=== PATIENT | female | born 1930 | race Caucasian/White ===

== ENCOUNTER 2016-07-14 05:51 | Inpatient (IN) | payer MEDICARE, MEDICAID ==
[2016-07-14 05:51] VITALS: BMI 30.9
--- NOTE | 2016-07-14 06:17 | ED PDOC ---
HPI: Trauma/Fall - HPI Time Seen by Provider: 07/14/16 05:57 Chief Complaint (Nursing): Trauma Chief Complaint (Provider): trauma Additional Complaint(s): pt sent from [place] after being foiund on floor after falling out of bed and apparently hitting her head according to patient. pt also state she is cold hence she is shivering. denies any other pain. no fever/vomiting. pt history limited as has history of dementia Past Medical History Reviewed: Historical Data, Nursing Documentation, Vital Signs Vital Signs: Last Vital Signs Temp 98.2 F 07/14/16 05:58 Pulse 73 07/14/16 05:58 Resp 17 07/14/16 05:58 BP 113/65 07/14/16 05:58 Pulse Ox 92 L 07/14/16 05:58 - Medical History PMH: Arthritis, CVA, Dementia, Depression, Fractures (right femur fx with surgery), HTN, Malignancy, Osteoporosis, Pneumonia, Rheumatoid Arthritis Denies: HIV, Chronic Kidney Disease - Surgical History Surgical History: Appendectomy - Family History Family History: States: Unknown Family Hx - Social History Current smoker - smoking cessation education provided: No Alcohol: None Drugs: Denies - Immunization History Hx Tetanus Toxoid Vaccination: No Hx Influenza Vaccination: Yes Hx Pneumococcal Vaccination: Yes - Home Medications Home Medications: Ambulatory Orders Medication Instructions Recorded Atorvastatin [Lipitor] 10 mg PO HS #0 tab 09/12/14 Famotidine [Pepcid] 20 mg PO BID #0 tab 09/12/14 Lisinopril [Zestril] 20 mg PO DAILY #0 tab 09/12/14 Magnesium Hydroxide [Milk Of 30 ml PO HS PRN #0 udc 09/12/14 Magnesia] amLODIPine [Norvasc] 10 mg PO DAILY #0 tab 09/12/14 Acetaminophen [Tylenol 325mg tab] 650 mg PO Q4H PRN 01/22/16 Albuterol/Ipratropium [Duoneb 3 3 ml IH Q8H PRN 01/22/16 mg/0.5 mg (3 ml) UD] Aspirin [Aspirin Chewable] 81 mg PO DAILY 01/22/16 Bisacodyl [Dulcolax] 10 mg [place] DAILY PRN 01/22/16 Calcium Carbonate/Vitamin D3 1 tab PO DAILY 01/22/16 [Os-Mahesh 500-Vit D3 200 Caplet] Docusate [Colace] 100 mg PO BID 01/22/16 Ferrous Sulfate [Feosol] 325 mg PO BID 01/22/16 Multivitamin [Multi-Vitamin Daily] 1 tab PO DAILY 01/22/16 Simethicone [Mylicon Liq] 2.4 ml PO BID PRN 01/22/16 hydroCHLOROthiazide [Hydrodiuril] 25 mg PO DAILY 01/22/16 Acetaminophen [Tylenol 325mg tab] 650 mg PO Q4H PRN 07/14/16 Difluprednate [Durezol] 1 drop LEFTEYE BID 07/14/16 - Allergies Allergies/Adverse Reactions: Allergies Allergy/AdvReac Type Severity Reaction Status Date / Time No Known Allergies Allergy Verified 07/14/16 05:57 Review of Systems ROS Statement: Except As Marked, All Systems Reviewed And Found Negative Constitutional: Negative for: Fever, Chills Cardiovascular: Negative for: Chest Pain Neurological: Positive for: Headache (head pain since falling) Physical Exam - Reviewed Nursing Documentation Reviewed: Yes Vital Signs Reviewed: Yes - Physical Exam Appears: Positive for: Well, Non-toxic (shaking from being cold but temp normal) , No Acute Distress Head Exam: Positive for: ATRAUMATIC, NORMAL INSPECTION, NORMOCEPHALIC Skin: Positive for: Normal Color, Warm, DRY Eye Exam: Positive for: EOMI, Normal appearance, PERRL Neck: Positive for: Normal, Painless ROM Cardiovascular/Chest: Positive for: Regular Rate, Rhythm Respiratory: Positive for: CNT, Normal Breath Sounds Gastrointestinal/Abdominal: Positive for: Bowel Sounds, Soft Extremity: Positive for: Other (r lower leg slightly rotated, neurovascular intact. normal pulses and color of skin) Neurologic/Psych: Positive for: Alert. Negative for: Oriented, Facial Droop - Laboratory Results Result Diagrams: 07/14/16 07:24 07/14/16 07:24 - ECG O2 Sat by Pulse Oximetry: 92 Medical Decision Making Medical Decision Making: pt status post fall -CT head -CT hip and pelvis -labs [address] Stanton pending complete workup and dispo pt noted to be vomitting in ER, ordered zofran Disposition - Clinical Impression Clinical Impression: Syncope, Acute cholecystitis - Patient ED Disposition Is Patient to be Admitted: Transfer of Care - Disposition Disposition: Transfer of Care Disposition Time: 07:00 Condition: STABLE Patient Signed Over To: Cornelio Stanton Handoff Comments: full workup and dispo
[2016-07-14 07:29] LABS: BASO % 0.4 % (0.0-2.0); HEMATOCRIT 34.5 % (34.0-47.0); LYMPH # 0.5 K/uL (1.0-4.3); LYMPH % 4.4 % (20.0-40.0); MEAN CELL VOLUME 89.6 fl (81.0-99.0); MEAN CORPUSCULAR HEMOGLOBIN 29.6 pg (27.0-31.0); MEAN CORPUSCULAR HGB CONC 33.1 g/dL (33.0-37.0); MEAN PLATELET VOLUME 10.1 fl (7.2-11.7); MONO # 0.3 K/uL (0.0-0.8); MONO % 2.6 % (0.0-10.0); NEUT # 10.8 K/uL (1.8-7.0); NEUT % 92.6 % (50.0-75.0); PLATELET COUNT 144 K/uL (130-400); RED CELL DISTRIBUTION WIDTH 13.9 % (11.5-14.5); WHITE BLOOD COUNT 11.6 K/uL (4.8-10.8)
[2016-07-14 07:48] LABS: ALB/GLOB RATIO 1.3 (1.0-2.1); ALKALINE PHOSPHATASE 140 U/L (38-126); ALT/SGPT 131 U/L (9-52); AST/SGOT 340 U/L (14-36); BILIRUBIN,TOTAL 0.9 mg/dl (0.2-1.3); BLOOD UREA NITROGEN 24 mg/dl (7-17); CARBON DIOXIDE 22 mmol/L (22-30); CHLORIDE 101 mmol/L (98-107); GFR AFRICAN-AMERICAN 51; GLUCOSE,RANDOM 175 mg/dL (65-105); POTASSIUM 4.3 MMOL/L (3.6-5.0); SODIUM 137 mmol/l (132-148); TOTAL PROTEIN 7.6 G/DL (6.3-8.2)
[2016-07-14 07:59] LABS: RBC URINE 5 /hpf (0-3); URINE BACTERIA OCC (<OCC); URINE BILIRUBIN NEGATIVE (NEGATIVE); URINE BLOOD NEGATIVE (NEGATIVE); URINE COLOR YELLOW (YELLOW); URINE GLUCOSE (UA) NEG (Normal); URINE KETONE NEGATIVE (NEGATIVE); URINE LEUKOCYTE ESTERASE SMALL Leu/uL (Negative); URINE PROTEIN 30 mg/dL (NEGATIVE); URINE UROBILINOGEN 0.2-1.0 mg/dL (0.2-1.0); WBC URINE 26 /hpf (0-5)
--- NOTE | 2016-07-14 08:26 | CT ---
PROCEDURE: CT HEAD WITHOUT CONTRAST. HISTORY: headache COMPARISON: Comparison is made to the previous study dated 01/21/2026 TECHNIQUE: Axial computed tomography images were obtained through the head/brain without intravenous contrast. Radiation dose: Total exam DLP = 1004.5 mGy-cm. FINDINGS: HEMORRHAGE: No intracranial hemorrhage. BRAIN: Small foci of encephalomalacia in the basal ganglia and marino radiata are again seen suggestive of old lacunar infarct. Mild atrophy and moderate chronic microvascular white matter ischemic disease are again seen. VENTRICLES: Unremarkable. No hydrocephalus. CALVARIUM: Unremarkable. PARANASAL SINUSES: Unremarkable as visualized. No significant inflammatory changes. MASTOID AIR CELLS: Unremarkable as visualized. No inflammatory changes. OTHER FINDINGS: None. IMPRESSION: No evidence of acute intracranial hemorrhage intracranial collection mass effect or midline shift. No significant interval change compared to the previous study noted. Atrophy and chronic microvascular white matter ischemic disease. Chronic lacunar infarcts again noted in the left basal ganglia and right marino radiata.
--- NOTE | 2016-07-14 08:36 | CT ---
PROCEDURE: CT Pelvis without contrast HISTORY: fall COMPARISON: No prior similar exam available for comparison. TECHNIQUE: Contiguous axial images of the pelvis . No intravenous or oral contrast given. Coronal and sagittal reformats generated. Radiation dose: Total exam DLP = 651.0 cell mGy-cm. FINDINGS: BLADDER: Unremarkable. No mass. REPRODUCTIVE ORGANS: Unremarkable. VISUALIZED BOWEL: Unremarkable. PERITONEUM: Unremarkable, as visualized. No free fluid. No free air. LYMPH NODES: Unremarkable. No enlarged lymph nodes. BONES: No fracture or focal lesion. Partially imaged intramedullary shon at the right femoral shaft VASCULATURE: Unremarkable. OTHER FINDINGS: There is midline ventral hernia seen just inferior to the umbilicus contains stranding fat. IMPRESSION: No CT evidence of acute fracture in the pelvis . Midline infraumbilical ventral hernia contains stranding fat. Mild constipation.
--- NOTE | 2016-07-14 08:50 | ED PDOC ---
- Laboratory Results Result Diagrams: 07/14/16 07:24 07/14/16 07:24 - ECG O2 Sat by Pulse Oximetry: 98 (RA) Pulse Ox Interpretation: Normal Medical Decision Making Medical Decision Makin signed over to me by Justin Dahl MD pending reassessment. 0816: Labs reviewed, elevated LFTs noted. On reassessment, voluntary guarding noted on palpation of RUQ. Will obtain CT abd/pel w/. 1040 CT abd/pel impression: Thickene gallbaldder wall with multiple dependent gallstones. Findings are of some concern for cholecystitis. Evaluation with ultrasound is suggested. No evidence of biliary obstructions. Exophytic mid riht renal cortical cysts stable since 12/30/2014. 1129 Case discussed with resident Dr. Walsh in the ED who accepts patient. Disposition - Clinical Impression Clinical Impression: Syncope, Acute cholecystitis - POA Present On Arrival: None - Disposition Disposition: Admitted as In-Patient Disposition Time: 11:30 Condition: STABLE Progress Note - Review of Symptoms Events since last encounter: 12PM: Pt. has lactate of 3.3 likely 2/2 to dehdyration. Normal VS, not concerned for sepsis at this time. U/S is equivocal for cholecystitits. Will continue to hydrate patient. ED OBSERVATION Date of observation admission: 07/14/16 Time of observation admission: 07:30 Additional Comments - Additional Comments Additional Comments: Scribe Attestation: Documented by Casimiro Iqbal acting as a scribe for Braden Stanton MD. Provider Scribe Attestation: All medical record entries made by the Scribe were at my direction and personally dictated by me. I have reviewed the chart and agree that the record accurately reflects my personal performance of the history, physical exam, medical decision making, and the department course for this patient. I have also personally directed, reviewed, and agree with the discharge instructions and disposition.
--- NOTE | 2016-07-14 10:35 | CT ---
PROCEDURE: CT Abdomen and Pelvis without intravenous contrast HISTORY: elevated LFTs COMPARISON: CT abdomen/ pelvis 07/30/2014 TECHNIQUE: Without contrast.. Contrast Dose: 0 Radiation dose: Total exam DLP = 533.45 mGy-cm. FINDINGS: LOWER THORAX: 8 mm pleural-based nodule in lingular segment left upper lobe none. No prior examination for comparison. Followup as per Fleischner society criteria includes noncontrast CT at 3-6 months and then at 18-24 months, for both low and high risk patients. Mild cardiomegaly with mitral annular calcification. LIVER: Unremarkable. No gross lesion or ductal dilatation. GALLBLADDER AND BILE DUCTS: Gallbladder contains dependent calculi. The gallbladder wall is thickened. No pericholecystic fluid. Findings are some concern for cholecystitis and further evaluation with ultrasound examination is suggested. Common bile duct measures 6 mm in diameter, within normal limits. PANCREAS: Unremarkable. No gross lesion or ductal dilatation. SPLEEN: Unremarkable. ADRENALS: Unremarkable. No mass. KIDNEYS AND URETERS: 1.7 cm exophytic mid right renal cortical mass. This measures 16 Hounsfield units. Consistent with stable cortical cyst. VASCULATURE: Unremarkable. No aortic aneurysm. BOWEL: Unremarkable. No obstruction. No gross mural thickening. APPENDIX: Not included PERITONEUM: Unremarkable. No free fluid. No free air. LYMPH NODES: Unremarkable. No enlarged lymph nodes. BONES: Grade 1 anterolisthesis L3-4. No spondylolysis. Degenerative disc disease L3-4 and L4-5. OTHER FINDINGS: None. IMPRESSION: Thickened gallbladder wall with multiple dependent gallstones. Findings are of some concern for cholecystitis. Evaluation with ultrasound examination is suggested. No evidence of biliary obstruction. Exophytic mid right renal cortical cysts stable since 12/30/2014. Additional minor findings as above.
[2016-07-14] MEDS ORDERED: Piperacillin/Tazobact 3.375 GM in Sodium Chloride 0.9% 100 ML IVPB STA (10:42)
[2016-07-14] MEDS ORDERED: Piperacillin/Tazobact 3.375 gm Inj IVPB ONE (10:48)
--- NOTE | 2016-07-14 11:08 | RAD ---
HISTORY: fall COMPARISON: 09/06/2014 FINDINGS: LUNGS: No active pulmonary disease. PLEURA: No significant pleural effusion identified, no pneumothorax apparent. CARDIOVASCULAR: Normal. OSSEOUS STRUCTURES: No significant abnormalities. VISUALIZED UPPER ABDOMEN: Normal. OTHER FINDINGS: None. IMPRESSION: No active disease.
[2016-07-14] MEDS ORDERED: Sodium Chloride 0.9% 1,000 ML IV STA ×2 (11:32→12:08)
[2016-07-14 11:50] LABS: ABG ALLEN TEST YES; ARTERIAL BLOOD GAS HCO3 27.9 mmol/L (21-28); ARTERIAL BLOOD GAS MODE NC; ARTERIAL BLOOD GAS PH 7.47 (7.35-7.45); ARTERIAL BLOOD GAS PO2 86 mm/Hg (80-100)
[2016-07-14 11:59] LABS: NEUTROPHIL 88 % (42-75); TOTAL CELLS COUNTED 100
--- NOTE | 2016-07-14 12:02 | US ---
HISTORY: r/o cholecystitis COMPARISON: CT abdomen 07/14/[address] abdomen/pelvis 07/30/2014 TECHNIQUE: Sonographic evaluation of the right upper quadrant of the abdomen. FINDINGS: LIVER: Measures 14.4 cm in length. Normal echogenicity of the liver parenchyma. No mass. No intrahepatic bile duct dilatation. GALLBLADDER: Cholelithiasis demonstrated. Mild thickening of gallbladder wall to 4 mm common nonspecific. No pericholecystic fluid. Negative sonographic Leon's sign. The findings are equivocal for cholecystitis. COMMON BILE DUCT: Measures 4 mm. No stones. No dilatation. PANCREAS: Suboptimally visualized due to overlying bowel gas. Pancreatic tail obscured. No gross abnormality identified. RIGHT KIDNEY: Measures 9.1 cm in length. No calculus or hydronephrosis. Mid to lower right kidney, exophytic hypoechoic mass, 1.6 x 1.7 x 1.8 cm. This is not clearly demonstrated to represent a cyst. This is not appreciably changed since CT examination of 07/30/2014. This may represent a complex cyst with low-level internal echoes or a solid mass. Given the lack of appreciable interval change since 2014, followup is advised. No other renal mass identified. AORTA: No aneurysmal dilatation. IVC: Unremarkable. OTHER FINDINGS: None . IMPRESSION: Cholelithiasis with mild gallbladder wall thickening. No pericholecystic fluid and no sonographic Leon's sign. Equivocal findings for cholecystitis. Essentially stable hypoechoic exophytic mid to lower right renal cortical mass compared to examination of 07/30/2014. Possible complex cyst versus solid mass. Given the lack of interval change, follow-up is advised. No additional abnormality.
[2016-07-14 12:04] LABS: GIANT PLATELETS PRESENT; LARGE PLATELETS PRESENT
[2016-07-14] MEDS ORDERED: Simethicone 40 mg/0.6 ml Liquid (30 ml) PO PRN (12:18)
[2016-07-14] MEDS ORDERED: Magnesium Hydroxide Susp 30 ml UD PO PRN (12:18)
[2016-07-14] MEDS ORDERED: Albuterol-Ipratrop 3 mg / 0.5 (3 ml) UD IH PRN (12:18)
--- NOTE | 2016-07-14 12:25 | CP.PCM.HP ---
History of Present Illness - History of Present Illness History of Present Illness: CC: fall HPI: 86 year old female with last medical history of dementia (poor historian, history obtained through chart review) HTN, arthritis, respiratory failure, CVA , head injury, presented to the ER early this morning after a fall. Per records , patient reportedly hit her head, Head CT, CT Pelvis were negative. Upon evaluation patient was found to have elevated white count as well as elevated transaminases, lactate 3.3. Abd exam showed mild guarding. Subsequent imaging CT ABD, US ABD showed +gallstones as well as elevated lipase 10K, + pancreatitis. Pt received 2 boluses NS in ER, pt also made NPO. Surgery consult called in ER, Dr. Judge. Patient vitals are stable no acute distress. ROS: per HPI, all other systems reviewed and negative by sd PMD: Dr. Spain PMH:HTN, arthritis, respiratory failure, CVA, head injury, PSH:s/p ORIF R, FH: SH: Denies tobacco, ETOH, IVDU MEDS: as below and reviewed ALLERGIES: NKDA personal lines agent: Surrogate decision maker Chetna Meneses [phone] EXAM: Temp Pulse Resp BP Pulse Ox 98.3 F 88 20 135/63 98 07/14/16 14:12 07/14/16 13:00 07/14/16 13:00 07/14/16 13:00 07/14/16 14:13 Vitals stable and reviewed GEN: WDWN, alert HEENT: NCAT, PERRL, EOMI Neck: supple, no lymphadenopathy CARDIO: +S1S2, RRR, NO M/R/G LUNG: CTAB, NO W/R/R ABD: soft, mild RUQ tenderness, ND, no masses, no HSM EXT: no edema, pedal pulses Neuro: AAOx3, Strength equal, bilateral UE/LE Psych: +DEMENTIA LABS as below and reviewed 07/14/16 07:24 07/14/16 07:24 LIPASE 10k TROPONIN NEG AST / ALT 340 / 131 APT 140 TBILI 0.9 Medications Albuterol/Ipratropium [Duoneb 3 mg/0.5 mg (3 ml) UD] 3 ml IH Q8H PRN Bisacodyl [Dulcolax] 10 mg [place] DAILY PRN Magnesium Hydroxide [Milk Of Magnesia] 30 ml PO HS PRN 07/14/16 12:30 Aspirin [Aspirin Chewable] 81 mg PO DAILY amLODIPine [Norvasc] 10 mg PO DAILY hydroCHLOROthiazide [Hydrodiuril] 25 mg PO DAILY 07/14/16 12:31 Simethicone [Mylicon Chew Tab] 160 mg PO BID PRN 07/14/16 13:15 Sodium Chloride 0.9% 1,000 ml IV 250 mls/hr 07/14/16 17:00 Difluprednate [Durezol] 1 drop LEFTEYE BID Docusate [Colace] 100 mg PO BID Famotidine [Pepcid] 20 mg PO DAILY Ferrous Sulfate [Feosol] 325 mg PO BID 07/14/16 22:00 Atorvastatin [Lipitor] 10 mg PO HS 07/15/16 09:00 Calcium/Vitamin D [Oyster Shell Calcium/Vitamin D 500 mg-200 IU] 1 tab PO DAILY Enoxaparin [Lovenox] 30 mg SC DAILY Lisinopril [Zestril] 20 mg PO DAILY Multimineral/Multivitamin [Therapeutic-M Tab] 1 tab PO DAILY Imaging studies: Head CT atrophy and chronic microvascular white matter ischemic disease. Chronic lacunar infarcts again noted int he left basal ganglia and right marino radiata. Chest XR no active disease CT Pelvis No CT evidence of acute fracture in pelvis. Midline infraumbilical ventral hernia contains stranding fat. Mild constipation. CT Abdomen: thickened gallbladder wall with multiple dependent gallstones. Findings are of some concern for cholecystitis. Eval with US recommended. No biliary obstruction. Exophytic mild R renal cortical cysts stable since 2014. US Abdomen cholelithiasis with mild gallbladder wall thickening. No pericholecystic fluid and no sonographic murphys sign. Equivocal for cholecystitis. essentially stable hypoechoic exophytic mid to lower R renal cortical mass compared to examination of 07/30/14. Possible complex cyst versus solid mass. Given lack of interval change, follow up advised. ASSESSMENT AND PLAN: 86 year old female with last medical history of dementia (poor historian, history obtained through chart review) HTN, arthritis, respiratory failure, CVA , head injury, presented to the ER early this morning after a fall. Per records , patient reportedly hit her head, Head CT, CT Pelvis were negative. Upon evaluation patient was found to have elevated white count as well as elevated transaminases, lactate 3.3. Abd exam showed mild guarding. Subsequent imaging CT ABD, US ABD showed +gallstones as well as elevated lipase 10K, + pancreatitis. Pt received 2 boluses NS in ER, pt also made NPO. Surgery consult called in ER, Dr. Judge. Patient vitals are stable no acute distress. Gallstone Pancreatitis CT Abdomen: thickened gallbladder wall with multiple dependent gallstones. Findings are of some concern for cholecystitis. Eval with US recommended. No biliary obstruction. Exophytic mild R renal cortical cysts stable since 2014. US Abdomen cholelithiasis with mild gallbladder wall thickening. No pericholecystic fluid and no sonographic murphys sign. Equivocal for cholecystitis. essentially stable hypoechoic exophytic mid to lower R renal cortical mass compared to examination of 07/30/14. Possible complex cyst versus solid mass. Given lack of interval change, follow up advised. WBC 11.6 today Lipase 10K, elevated transaminases, TBili 0.9 NS @ 250 cc/hr 4 more bags, revaluate Old echo showed some diastolic dysfunction will monitor carefully, diffucult to assess pain at this time as patient nonverbal Lasix PRN Surgery consult Dr. Judge appreciated and followed Blood cultures pending patient received zosyn in ER Fall CT head and Pelvis both neg fall precautions Hx CVA Asa 81 mg po daily Atorvastatin 10 mg po HS HTN HCTZ 25 mg po daily Norvasc 10 mg po daily Lisinopril 20 mg po daily DVT ppx lovenox Present on Admission - Present on Admission Any Indicators Present on Admission: No Past Patient History - Infectious Disease Hx of Infectious Diseases: None - Tetanus Immunizations Tetanus Immunization: Unknown, Allergy to Tetanus Vaccine - Past Medical History & Family History Past Medical History?: Yes - Past Social History Alcohol: None Drugs: Denies - CARDIAC Hx Hypertension: Yes - PULMONARY Hx Pneumonia: Yes - NEUROLOGICAL Hx Dementia: Yes - HEENT Hx HEENT Problems: No - RENAL Hx Chronic Kidney Disease: No - ENDOCRINE/METABOLIC Hx Endocrine Disorders: No - HEMATOLOGICAL/ONCOLOGICAL Hx Human Immunodeficiency Virus (HIV): No - INTEGUMENTARY Hx Dermatological Problems: No - MUSCULOSKELETAL/RHEUMATOLOGICAL Hx Arthritis: Yes Hx Fractures: Yes (right femur fx with surgery) Hx Osteoporosis: Yes Hx Rheumatoid Arthritis: Yes - GASTROINTESTINAL Hx Gastrointestinal Disorders: Yes Hx Gastroesophageal Reflux: Yes - GENITOURINARY/GYNECOLOGICAL Hx Genitourinary Disorders: Yes Hx Urinary Tract Infection: Yes Other/Comment: recurrent UTI - PSYCHIATRIC Hx Depression: Yes - SURGICAL HISTORY Hx Appendectomy: Yes - ANESTHESIA Hx Anesthesia: Yes Hx Anesthesia Reactions: No Hx Malignant Hyperthermia: No Meds Allergies/Adverse Reactions: Allergies Allergy/AdvReac Type Severity Reaction Status Date / Time No Known Allergies Allergy Verified 07/14/16 05:57 Results - Vital Signs Recent Vital Signs: Last Vital Signs Temp 98.2 F 07/14/16 12:22 Pulse 90 07/14/16 12:22 Resp 24 07/14/16 12:22 BP 103/78 07/14/16 12:22 Pulse Ox 98 07/14/16 12:11 - Labs Result Diagrams: 07/14/16 07:24 07/14/16 07:24 Labs: Laboratory Results - last 24 hr 07/14/16 07/14/16 11:40 11:41 pCO2 38 pO2 86 HCO3 27.9 ABG pH 7.47 H ABG Total CO2 28.9 H ABG O2 Saturation 100.9 H ABG Base Excess 3.8 H Neno Test Yes ABG Potassium 3.9 A-a O2 Difference 66.0 Sodium 138.0 Chloride 107.0 Glucose 138 H Lactate 3.3 H Vent Mode Nc FiO2 28.0 Lipase 54952 H Arterial Blood Potassium 3.9
[2016-07-14] MEDS ORDERED: Simethicone 80 mg Chewtab PO PRN (12:31)
[2016-07-14] MEDS ORDERED: Sodium Chloride 0.9% 1,000 ML IV SCH (13:15)
[2016-07-14] MEDS: Sodium Chloride 0.9% 1,000 ML IV SCH ×4 (15:17→23:10)
[2016-07-14 15:21] LABS: ABG ALLEN TEST YES; ARTERIAL BLOOD GAS HCO3 27.8 mmol/L (21-28); ARTERIAL BLOOD GAS PH 7.43 (7.35-7.45); ARTERIAL BLOOD GAS PO2 88 mm/Hg (80-100)
--- NOTE | 2016-07-14 16:27 | CP.PCM.CON ---
<Alejandro Ervin - Last Filed: 07/14/16 16:16> History of Present Illness - History of Present Illness History of Present Illness: General Surgery Consult Re: Cholecystitis? HPI: 86F with Hx dementia/CVA. Pt is nonverbal, history obtained through EMR. Pt presented to the ER after a fall [place]. Trauma eval was negative. Further eval revealed elevated WBC as well as elevated transaminases, lactate, and lipase. Pt moans and grimaces during abdominal exam. PMH: HTN, arthritis, respiratory failure, CVA, head injury, CAD PSH: ORIF R femur SH: In past denied EtOH and tobacco use All: NKDA Meds: See MAR Review of Systems - Review of Systems Systems not reviewed;Unavailable: Dementia, Language Barrier Past Patient History - Infectious Disease Hx of Infectious Diseases: None - Tetanus Immunizations Tetanus Immunization: Unknown, Allergy to Tetanus Vaccine - Past Medical History & Family History Past Medical History?: Yes - Past Social History Alcohol: None Drugs: Denies - CARDIAC Hx Hypertension: Yes - PULMONARY Hx Pneumonia: Yes - NEUROLOGICAL Hx Dementia: Yes - HEENT Hx HEENT Problems: No - RENAL Hx Chronic Kidney Disease: No - ENDOCRINE/METABOLIC Hx Endocrine Disorders: No - HEMATOLOGICAL/ONCOLOGICAL Hx Human Immunodeficiency Virus (HIV): No - INTEGUMENTARY Hx Dermatological Problems: No - MUSCULOSKELETAL/RHEUMATOLOGICAL Hx Arthritis: Yes Hx Fractures: Yes (right femur fx with surgery) Hx Osteoporosis: Yes Hx Rheumatoid Arthritis: Yes - GASTROINTESTINAL Hx Gastrointestinal Disorders: Yes Hx Gastroesophageal Reflux: Yes - GENITOURINARY/GYNECOLOGICAL Hx Genitourinary Disorders: Yes Hx Urinary Tract Infection: Yes Other/Comment: recurrent UTI - PSYCHIATRIC Hx Depression: Yes - SURGICAL HISTORY Hx Appendectomy: Yes - ANESTHESIA Hx Anesthesia: Yes Hx Anesthesia Reactions: No Hx Malignant Hyperthermia: No Meds Allergies/Adverse Reactions: Allergies Allergy/AdvReac Type Severity Reaction Status Date / Time No Known Allergies Allergy Verified 07/14/16 05:57 - Medications Medications: Current Medications Albuterol/Ipratropium (Duoneb 3 Mg/0.5 Mg (3 Ml) Ud) 3 ml IH Q8H PRN PRN Reason: wheezing/shortness of breath Amlodipine Besylate (Norvasc) 10 mg PO DAILY [facility] Last Admin: 07/14/16 15:10 Dose: Not Given Aspirin (Aspirin Chewable) 81 mg PO DAILY [facility] Last Admin: 07/14/16 15:03 Dose: Not Given Atorvastatin Calcium (Lipitor) 10 mg PO HS [facility] Bisacodyl (Dulcolax) 10 mg [place] DAILY PRN PRN Reason: Constipation Calcium/Vitamin D (Oyster Shell Calcium/Vitamin D 500 Mg-200 Iu) 1 tab PO DAILY [facility] Docusate Sodium (Colace) 100 mg PO BID [facility] Enoxaparin Sodium (Lovenox) 30 mg SC DAILY [facility] PRN Reason: Protocol Famotidine (Pepcid) 20 mg PO DAILY [facility] Ferrous Sulfate (Feosol) 325 mg PO BID [facility] Home Med (Difluprednate [Durezol]) 1 drop LEFTEYE BID [facility] Hydrochlorothiazide (Hydrodiuril) 25 mg PO DAILY [facility] Last Admin: 07/14/16 15:03 Dose: Not Given Sodium Chloride (Sodium Chloride 0.9%) 1,000 mls @ 250 mls/hr IV .Q4H [facility] Stop: 07/15/16 05:14 Last Admin: 07/14/16 15:17 Dose: 250 mls/hr Lisinopril (Zestril) 20 mg PO DAILY [facility] Magnesium Hydroxide (Milk Of Magnesia) 30 ml PO HS PRN PRN Reason: Constipation Multivitamins/Minerals (Therapeutic-M Tab) 1 tab PO DAILY [facility] Simethicone (Mylicon Chew Tab) 160 mg PO BID PRN PRN Reason: gas Physical Exam - Constitutional Appears: Non-toxic, No Acute Distress - Head Exam Head Exam: ATRAUMATIC, NORMOCEPHALIC - Eye Exam Eye Exam: PERRL. absent: Scleral icterus - ENT Exam ENT Exam: Mucous Membranes Moist Additional comments: trachea midline - Respiratory Exam Respiratory Exam: NORMAL BREATHING PATTERN. absent: Respiratory Distress - Cardiovascular Exam Cardiovascular Exam: RRR. absent: JVD - GI/Abdominal Exam GI & Abdominal Exam: Soft, Tenderness (especially in RUQ and epigastric area). absent: Distended, Firm, Guarding, Rebound, Rigid - Extremities Exam Extremities exam: Negative for: calf tenderness, pedal edema - Back Exam Back exam: absent: CVA tenderness (L), CVA tenderness (R) - Neurological Exam Neurological exam: Altered - Psychiatric Exam Psychiatric exam: Flat Affect - Skin Skin Exam: Dry, Warm Results - Vital Signs Recent Vital Signs: Last Vital Signs Temp 98.3 F 03/14/17 14:12 Pulse 88 07/14/16 13:00 Resp 20 07/14/16 13:00 BP 135/63 07/14/16 13:00 Pulse Ox 98 07/14/16 14:13 - Labs Result Diagrams: 07/14/16 07:24 07/14/16 07:24 Labs: Laboratory Results - last 24 hr 07/14/16 07/14/16 07/14/16 11:40 11:41 15:15 pCO2 38 43 pO2 86 88 HCO3 27.9 27.8 ABG pH 7.47 H 7.43 ABG Total CO2 28.9 H 29.8 H ABG O2 Saturation 100.9 H 98.9 H ABG Base Excess 3.8 H 3.7 H Neno Test Yes Yes ABG Potassium 3.9 3.4 L A-a O2 Difference 66.0 58.0 Sodium 138.0 128.0 L Chloride 107.0 111.0 H Glucose 138 H 161 H Lactate 3.3 H 2.1 Vent Mode Nc FiO2 28.0 28.0 Lipase 64123 H Arterial Blood Potassium 3.9 3.4 L - Imaging and Cardiology CT scan - abdomen Status: Image reviewed by me, Report reviewed by me US - abdomen Status: Image reviewed by me, Report reviewed by me CT scan - head Status: Image reviewed by me, Report reviewed by me Assessment & Plan - Assessment and Plan (Free Text) Assessment: 86F with acute pancreatitis, possibly 2/2 gallstones Plan: IVF NPO Pain control Zofran Serial Abd exams Recommend GI consult D/W Dr. Nu Ervin PGY3 <Moe Judge - Last Filed: 07/19/16 21:13> Meds - Medications Medications: Current Medications Albuterol/Ipratropium (Duoneb 3 Mg/0.5 Mg (3 Ml) Ud) 3 ml IH Q8H PRN PRN Reason: wheezing/shortness of breath Amlodipine Besylate (Norvasc) 10 mg PO DAILY [facility] Last Admin: 07/19/16 09:50 Dose: 10 mg Aspirin (Aspirin Chewable) 81 mg PO DAILY [facility] Last Admin: 07/19/16 09:48 Dose: 81 mg Bisacodyl (Dulcolax) 10 mg [place] DAILY PRN PRN Reason: Constipation Calcium/Vitamin D (Oyster Shell Calcium/Vitamin D 500 Mg-200 Iu) 1 tab PO DAILY [facility] Last Admin: 07/19/16 09:50 Dose: 1 tab Docusate Sodium (Colace) 100 mg PO BID [facility] Last Admin: 07/19/16 16:31 Dose: 100 mg Ferrous Sulfate (Feosol) 325 mg PO BID [facility] Last Admin: 07/19/16 16:31 Dose: 325 mg Home Med (Difluprednate [Durezol]) 1 drop LEFTEYE BID [facility] Metronidazole (Flagyl 500mg/100ml Ns) 100 mls @ 100 mls/hr IVPB Q8 [facility] Last Admin: 07/19/16 16:26 Dose: 100 mls/hr Meropenem 1 gm/ Sodium (Chloride) 100 mls @ 100 mls/hr IVPB Q8 [facility] Last Admin: 07/19/16 17:33 Dose: 100 mls/hr Ketorolac Tromethamine (Toradol) 15 mg IVP Q6 PRN PRN Reason: pain 4-10 Last Admin: 07/14/16 18:27 Dose: 15 mg Lactobacillus Acidophilus (Bacid Acidophilus) 1 cap PO BID [facility] Last Admin: 07/19/16 16:31 Dose: 1 cap Lisinopril (Zestril) 20 mg PO DAILY [facility] Last Admin: 07/19/16 09:50 Dose: 20 mg Magnesium Hydroxide (Milk Of Magnesia) 30 ml PO HS PRN PRN Reason: Constipation Last Admin: 07/18/16 09:57 Dose: 30 ml Multivitamins/Minerals (Therapeutic-M Tab) 1 tab PO DAILY [facility] Last Admin: 07/19/16 09:50 Dose: 1 tab Ondansetron HCl (Zofran Inj) 4 mg IVP Q6 PRN PRN Reason: Nausea/Vomiting Last Admin: 07/19/16 16:41 Dose: 4 mg Pantoprazole Sodium (Protonix Ec Tab) 40 mg PO DAILY [facility] Simethicone (Mylicon Chew Tab) 160 mg PO BID PRN PRN Reason: gas Results - Vital Signs Recent Vital Signs: Last Vital Signs Temp 98.5 F 07/19/16 16:18 Pulse 81 07/19/16 16:18 Resp 20 07/19/16 16:18 BP 164/65 H 07/19/16 16:18 Pulse Ox 93 L 07/19/16 16:18 - Labs Result Diagrams: 07/19/16 10:30 07/19/16 10:30 Labs: Laboratory Results - last 24 hr 07/19/16 10:30 WBC 4.1 L RBC 3.25 L Hgb 9.7 L Hct 28.3 L MCV 87.0 MCH 29.9 MCHC 34.3 RDW 14.1 Plt Count 100 L MPV 9.4 Neut % (Auto) 67.2 Lymph % (Auto) 19.5 L [place] % (Auto) 12.5 H Eos % (Auto) 0.6 Baso % (Auto) 0.2 Neut # 2.7 Lymph # 0.8 L [place] # 0.5 Eos # 0.0 Baso # 0.0 Sodium 139 Potassium 3.2 L Chloride 103 Carbon Dioxide 30 Anion Gap 9 L BUN 9 Creatinine 0.6 L Est GFR ( Amer) > 60 Est GFR (Non-Af Amer) > 60 Random Glucose 141 H Calcium 8.2 L Total Bilirubin 0.4 AST 27 ALT 96 H Alkaline Phosphatase 159 H Total Protein 5.7 L Albumin 2.9 L Globulin 2.8 Albumin/Globulin Ratio 1.0 Attending/Attestation - Attestation I have personally seen and examined this patient.: Yes I have fully participated in the care of the patient.: Yes I have reviewed all pertinent clinical information: Yes Notes (Text): 07/19/16 21:13 Pt was seen and examined at bedside on 07/14/16 Agree with above note and assessment Pt with GS pancreatitis and Sepsis C/w IV antibiotics GI consult Plan d/w primary team We will f.u.
[2016-07-15] MEDS: Sodium Chloride 0.9% 1,000 ML IV SCH ×5 (01:15→23:00)
--- NOTE | 2016-07-15 08:06 | CP.PCM.PN ---
Addendum entered and electronically signed by Parrish Barros DO 07/15/16 15: 05: MRCP negative for choledocholithiasis. WBC trending up. Blood culture + for E. Coli. Likely biliary etiology. Pt is poor surgical candidate, would recommend Cholecystostomy tube for drainage and ERCP/stent if indicated per GI. Addendum entered and electronically signed by Parrish Barros DO 07/15/16 09: 14: hold lvx incase pt needs procedure, also HgB dropping Original Note: <Parrish Barros - Last Filed: 07/15/16 08:03> Subjective - Date & Time of Evaluation Date of Evaluation: 07/15/16 Time of Evaluation: 08:04 - Subjective Subjective: Gen Surg: Dr Judge Pt S/E. More alert and verbal this morning. Pt reports still with RUQ pain. Feeling nauseous and per pt had vomiting yesterday. She is passing flatus. Denies F/C, SOB, or chest pain. Objective - Vital Signs/Intake and Output Vital Signs (last 24 hours): Temp Pulse Resp BP Pulse Ox 98 F 69 20 110/66 92 L 07/14/16 21:27 07/14/16 21:27 07/14/16 21:27 07/14/16 21:27 07/14/16 23:45 - Medications Medications: Current Medications Albuterol/Ipratropium (Duoneb 3 Mg/0.5 Mg (3 Ml) Ud) 3 ml IH Q8H PRN PRN Reason: wheezing/shortness of breath Amlodipine Besylate (Norvasc) 10 mg PO DAILY [facility] Last Admin: 07/14/16 15:10 Dose: Not Given Aspirin (Aspirin Chewable) 81 mg PO DAILY [facility] Last Admin: 07/14/16 15:03 Dose: Not Given Atorvastatin Calcium (Lipitor) 10 mg PO HS [facility] Last Admin: 07/14/16 21:43 Dose: Not Given Bisacodyl (Dulcolax) 10 mg [place] DAILY PRN PRN Reason: Constipation Calcium/Vitamin D (Oyster Shell Calcium/Vitamin D 500 Mg-200 Iu) 1 tab PO DAILY [facility] Docusate Sodium (Colace) 100 mg PO BID [facility] Last Admin: 07/14/16 18:18 Dose: Not Given Enoxaparin Sodium (Lovenox) 30 mg SC DAILY [facility] PRN Reason: Protocol Famotidine (Pepcid) 20 mg PO DAILY [facility] Last Admin: 07/14/16 18:18 Dose: Not Given Ferrous Sulfate (Feosol) 325 mg PO BID [facility] Last Admin: 07/14/16 18:18 Dose: Not Given Home Med (Difluprednate [Durezol]) 1 drop LEFTEYE BID [facility] Hydrochlorothiazide (Hydrodiuril) 25 mg PO DAILY [facility] Last Admin: 07/14/16 15:03 Dose: Not Given Sodium Chloride (Sodium Chloride 0.9%) 1,000 mls @ 125 mls/hr IV .Q8H [facility] Stop: 07/16/16 08:01 Ketorolac Tromethamine (Toradol) 15 mg IVP Q6 PRN PRN Reason: pain 4-10 Last Admin: 07/14/16 18:27 Dose: 15 mg Lisinopril (Zestril) 20 mg PO DAILY [facility] Magnesium Hydroxide (Milk Of Magnesia) 30 ml PO HS PRN PRN Reason: Constipation Multivitamins/Minerals (Therapeutic-M Tab) 1 tab PO DAILY [facility] Simethicone (Mylicon Chew Tab) 160 mg PO BID PRN PRN Reason: gas - Constitutional Appears: Non-toxic, No Acute Distress - Eye Exam Eye Exam: absent: Scleral icterus - Respiratory Exam Respiratory Exam: absent: Accessory Muscle Use, Respiratory Distress - GI/Abdominal Exam GI & Abdominal Exam: Soft, Tenderness (RUQ ), Mass (palpable gallbladder). absent: Distended - Extremities Exam Extremities Exam: absent: Pedal Edema - Neurological Exam Neurological Exam: Alert, Awake - Psychiatric Exam Psychiatric exam: Normal Affect, Normal Mood - Skin Skin Exam: Normal Color, Warm Assessment and Plan - Assessment and Plan (Free Text) Assessment: 86F w/ RUQ pain 2/2 gallstone pancreatitis Plan: f/u MRCP r/o obstruction of CBD/pancreatic duct Trend lipase cont abx and IV hydration f/u GI consult d/w Dr Nu Barros, PGY2 <Moe Judge B - Last Filed: 07/19/16 21:21> Objective - Vital Signs/Intake and Output Vital Signs (last 24 hours): Temp Pulse Resp BP Pulse Ox 98.5 F 81 20 164/65 H 93 L 07/19/16 16:18 07/19/16 16:18 07/19/16 16:18 07/19/16 16:18 07/19/16 16:18 - Medications Medications: Current Medications Albuterol/Ipratropium (Duoneb 3 Mg/0.5 Mg (3 Ml) Ud) 3 ml IH Q8H PRN PRN Reason: wheezing/shortness of breath Amlodipine Besylate (Norvasc) 10 mg PO DAILY [facility] Last Admin: 07/19/16 09:50 Dose: 10 mg Aspirin (Aspirin Chewable) 81 mg PO DAILY [facility] Last Admin: 07/19/16 09:48 Dose: 81 mg Bisacodyl (Dulcolax) 10 mg [place] DAILY PRN PRN Reason: Constipation Calcium/Vitamin D (Oyster Shell Calcium/Vitamin D 500 Mg-200 Iu) 1 tab PO DAILY [facility] Last Admin: 07/19/16 09:50 Dose: 1 tab Docusate Sodium (Colace) 100 mg PO BID [facility] Last Admin: 07/19/16 16:31 Dose: 100 mg Ferrous Sulfate (Feosol) 325 mg PO BID [facility] Last Admin: 07/19/16 16:31 Dose: 325 mg Home Med (Difluprednate [Durezol]) 1 drop LEFTEYE BID [facility] Metronidazole (Flagyl 500mg/100ml Ns) 100 mls @ 100 mls/hr IVPB Q8 [facility] Last Admin: 07/19/16 16:26 Dose: 100 mls/hr Meropenem 1 gm/ Sodium (Chloride) 100 mls @ 100 mls/hr IVPB Q8 [facility] Last Admin: 07/19/16 17:33 Dose: 100 mls/hr Ketorolac Tromethamine (Toradol) 15 mg IVP Q6 PRN PRN Reason: pain 4-10 Last Admin: 07/14/16 18:27 Dose: 15 mg Lactobacillus Acidophilus (Bacid Acidophilus) 1 cap PO BID [facility] Last Admin: 07/19/16 16:31 Dose: 1 cap Lisinopril (Zestril) 20 mg PO DAILY [facility] Last Admin: 07/19/16 09:50 Dose: 20 mg Magnesium Hydroxide (Milk Of Magnesia) 30 ml PO HS PRN PRN Reason: Constipation Last Admin: 07/18/16 09:57 Dose: 30 ml Multivitamins/Minerals (Therapeutic-M Tab) 1 tab PO DAILY [facility] Last Admin: 07/19/16 09:50 Dose: 1 tab Ondansetron HCl (Zofran Inj) 4 mg IVP Q6 PRN PRN Reason: Nausea/Vomiting Last Admin: 07/19/16 16:41 Dose: 4 mg Pantoprazole Sodium (Protonix Ec Tab) 40 mg PO DAILY [facility] Simethicone (Mylicon Chew Tab) 160 mg PO BID PRN PRN Reason: gas - Labs Labs: 07/19/16 10:30 07/19/16 10:30 Attending/Attestation - Attestation I have personally seen and examined this patient.: Yes I have fully participated in the care of the patient.: Yes I have reviewed all pertinent clinical information, including history, physical exam and plan: Yes Notes (Text): 07/19/16 21:18 Pt was seen and examined at bedside on 07/15/16 Agree with above note and assessment MRCP reviewed Continue current mx Repeat CBC, LFTs
[2016-07-15 08:35] LABS: BASO % 0.1 % (0.0-2.0); EOS % 0.1 % (0.0-4.0); HEMATOCRIT 25.9 % (34.0-47.0); LYMPH # 0.7 K/uL (1.0-4.3); LYMPH % 4.1 % (20.0-40.0); MEAN CELL VOLUME 89.7 fl (81.0-99.0); MEAN CORPUSCULAR HEMOGLOBIN 29.2 pg (27.0-31.0); MEAN CORPUSCULAR HGB CONC 32.5 g/dL (33.0-37.0); MEAN PLATELET VOLUME 10.6 fl (7.2-11.7); MONO # 1.2 K/uL (0.0-0.8); MONO % 7.2 % (0.0-10.0); NEUT # 15.2 K/uL (1.8-7.0); NEUT % 88.5 % (50.0-75.0); RED CELL DISTRIBUTION WIDTH 14.4 % (11.5-14.5); WHITE BLOOD COUNT 17.1 K/uL (4.8-10.8)
[2016-07-15 08:48] LABS: ALKALINE PHOSPHATASE 132 U/L (38-126); ALT/SGPT 348 U/L (9-52); AST/SGOT 349 U/L (14-36); BILIRUBIN,TOTAL 1.2 mg/dl (0.2-1.3); BLOOD UREA NITROGEN 24 mg/dl (7-17); CALCIUM 7.8 mg/dL (8.4-10.2); CARBON DIOXIDE 24 mmol/L (22-30); CHLORIDE 113 mmol/L (98-107); GFR AFRICAN-AMERICAN > 60; GLUCOSE,RANDOM 91 mg/dL (65-105); POTASSIUM 4.1 MMOL/L (3.6-5.0); SODIUM 148 mmol/l (132-148); TOTAL PROTEIN 5.4 G/DL (6.3-8.2)
[2016-07-15] MEDS: Calcium-Vit D 500 mg-200 Units Tab UD PO SCH ×2 (09:00→10:28)
[2016-07-15] MEDS ORDERED: Enoxaparin 30 mg Syringe SC SCH (09:00)
[2016-07-15] MEDS ORDERED: Piperacillin/Tazobact 3.375 GM in Sodium Chloride 0.9% 100 ML IVPB SCH (10:00)
[2016-07-15] MEDS: Multivitamin With Minerals Tab PO SCH ×2 (10:28→10:48)
--- NOTE | 2016-07-15 11:16 | CP.PCM.PN ---
Subjective - Date & Time of Evaluation Date of Evaluation: 07/15/16 Time of Evaluation: 11:00 - Subjective Subjective: No fever today- febrile to 101 yesterday still with upper abd pain , sl better denies CP no SOB no N/V Objective - Vital Signs/Intake and Output Vital Signs (last 24 hours): Temp Pulse Resp BP Pulse Ox 98.5 F 73 20 117/80 97 07/15/16 08:22 07/15/16 08:22 07/15/16 08:22 07/15/16 08:22 07/15/16 08:22 - Medications Medications: Current Medications Albuterol/Ipratropium (Duoneb 3 Mg/0.5 Mg (3 Ml) Ud) 3 ml IH Q8H PRN PRN Reason: wheezing/shortness of breath Aspirin (Aspirin Chewable) 81 mg PO DAILY [facility] Last Admin: 07/15/16 10:50 Dose: Not Given Atorvastatin Calcium (Lipitor) 10 mg PO HS [facility] Last Admin: 07/14/16 21:43 Dose: Not Given Bisacodyl (Dulcolax) 10 mg [place] DAILY PRN PRN Reason: Constipation Calcium/Vitamin D (Oyster Shell Calcium/Vitamin D 500 Mg-200 Iu) 1 tab PO DAILY [facility] Docusate Sodium (Colace) 100 mg PO BID [facility] Last Admin: 07/15/16 10:51 Dose: Not Given Enoxaparin Sodium (Lovenox) 30 mg SC DAILY [facility] PRN Reason: Protocol Famotidine (Pepcid) 20 mg PO DAILY [facility] Last Admin: 07/15/16 10:27 Dose: 20 mg Ferrous Sulfate (Feosol) 325 mg PO BID [facility] Last Admin: 07/15/16 10:26 Dose: 325 mg Home Med (Difluprednate [Durezol]) 1 drop LEFTEYE BID [facility] Sodium Chloride (Sodium Chloride 0.9%) 1,000 mls @ 125 mls/hr IV .Q8H [facility] Stop: 07/16/16 08:01 Last Admin: 07/15/16 10:28 Dose: 125 mls/hr Piperacillin Sod/Tazobactam (Sod 3.375 gm/ Sodium Chloride) 100 mls @ 100 mls/ hr IVPB Q6 [facility] Ketorolac Tromethamine (Toradol) 15 mg IVP Q6 PRN PRN Reason: pain 4-10 Last Admin: 07/14/16 18:27 Dose: 15 mg Lisinopril (Zestril) 20 mg PO DAILY [facility] Last Admin: 07/15/16 10:49 Dose: Not Given Magnesium Hydroxide (Milk Of Magnesia) 30 ml PO HS PRN PRN Reason: Constipation Multivitamins/Minerals (Therapeutic-M Tab) 1 tab PO DAILY [facility] Last Admin: 07/15/16 10:48 Dose: Not Given Simethicone (Mylicon Chew Tab) 160 mg PO BID PRN PRN Reason: gas - Labs Labs: 07/15/16 08:15 07/15/16 08:15 - Constitutional Appears: Non-toxic, No Acute Distress - Head Exam Head Exam: ATRAUMATIC, NORMAL INSPECTION, NORMOCEPHALIC - Eye Exam Eye Exam: EOMI, Normal appearance Pupil Exam: NORMAL ACCOMODATION - ENT Exam ENT Exam: Mucous Membranes Dry, Normal External Ear Exam - Neck Exam Neck Exam: Full ROM. absent: Meningismus - Respiratory Exam Respiratory Exam: NORMAL BREATHING PATTERN. absent: Respiratory Distress - Cardiovascular Exam Cardiovascular Exam: REGULAR RHYTHM, +S1, +S2 - GI/Abdominal Exam GI & Abdominal Exam: Soft, Tenderness, Normal Bowel Sounds Additional comments: diffuse tenderness abdominal hernia - Extremities Exam Extremities Exam: Normal Capillary Refill. absent: Calf Tenderness, Pedal Edema - Back Exam Back Exam: NORMAL INSPECTION. absent: CVA tenderness (L), CVA tenderness (R), paraspinal tenderness - Neurological Exam Neurological Exam: Alert, Awake, CN II-XII Intact, Oriented x3 - Psychiatric Exam Psychiatric exam: Normal Affect, Normal Mood - Skin Skin Exam: Dry, Normal Color, Warm Assessment and Plan (1) Sepsis Status: Acute (2) Gallstone pancreatitis Status: Acute (3) Acute cholecystitis Status: Acute (4) UTI (urinary tract infection) Status: Acute (5) Anemia Status: Chronic (6) DVT prophylaxis Status: Acute - Assessment and Plan (Free Text) Assessment: 86 year old female with last medical history of dementia (poor historian, history obtained through chart review) HTN, arthritis, respiratory failure, CVA , head injury, presented to the ER early this morning after a fall. Per records , patient reportedly hit her head, Head CT, CT Pelvis were negative. Upon evaluation patient was found to have elevated white count as well as elevated transaminases, lactate 3.3. Abd exam showed mild guarding. Subsequent imaging CT ABD, US ABD showed +gallstones as well as elevated lipase 10K, + pancreatitis. Pt received 2 boluses NS in ER, pt also made NPO. Surgery consult called in ER, Dr. Judge. Patient vitals are stable no acute distress. 1. Sepsis sec to GB infection poss Cholangitis, Gallstone Pancreatitis and UTI - Blood c/s: Gram negative rods - start pt on IV Zosyn -ID consult -IVF hydration -transfer pt to Telemetry for close monitoring -Echo to check for vegetation 2. Gallstone Pancreatitis CT Abdomen: thickened gallbladder wall with multiple dependent gallstones. Findings are of some concern for cholecystitis. Eval with US recommended. No biliary obstruction. Exophytic mild R renal cortical cysts stable since 2014. 3. US Abdomen cholelithiasis with mild gallbladder wall thickening. No pericholecystic fluid and no sonographic murphys sign. Equivocal for cholecystitis. essentially stable hypoechoic exophytic mid to lower R renal cortical mass compared to examination of 07/30/14. Possible complex cyst versus solid mass. Given lack of interval change, follow up advised. WBC 17 today Lipase 10K, elevated transaminases, TBili 0.9- Lipase improved to 2k IVF hydration Surgery consult Dr. Judge GI consult: Dr Diehl Cardiology for preop eval: Dr Ambrose 3. Acute Cholecystitis/Choledocholithiasis -MRCP - GI consult for poss ERCP - start IV zosyn - pain mgt 4. Fall CT head and Pelvis both neg fall precautions 5. UTI - Urine cs -started IV Zosyn 6. Hx CVA - cont Asa 81 mg po daily and Atorvastatin 10 mg po HS when able to take PO DVT ppx lovenox
[2016-07-15 11:38] LABS: BASO % 0.1 % (0.0-2.0); EOS % 0.1 % (0.0-4.0); HEMATOCRIT 27.3 % (34.0-47.0); LYMPH # 0.6 K/uL (1.0-4.3); LYMPH % 3.5 % (20.0-40.0); MEAN CELL VOLUME 89.6 fl (81.0-99.0); MEAN CORPUSCULAR HEMOGLOBIN 29.5 pg (27.0-31.0); MEAN CORPUSCULAR HGB CONC 32.9 g/dL (33.0-37.0); MEAN PLATELET VOLUME 10.5 fl (7.2-11.7); MONO # 1.2 K/uL (0.0-0.8); NEUT # 15.7 K/uL (1.8-7.0); NEUT % 89.3 % (50.0-75.0); RED CELL DISTRIBUTION WIDTH 14.3 % (11.5-14.5); WHITE BLOOD COUNT 17.6 K/uL (4.8-10.8)
--- NOTE | 2016-07-15 11:42 | MRI ---
MRCP Indication: Rule out choledocholithiasis, gallstone pancreatitis Technique: Multiplanar, multisequence MR images of the abdomen were obtained, including heavily T2 weighted MRCP images of the biliary system. Rotating maximum intensity projection images of the biliary system were generated. A total of 748 images were submitted for review. Comparison: Limited abdominal ultrasound performed 07/14/16, CT abdomen without IV contrast performed 07/14/16 Findings: Examination markedly limited due to patient condition, difficulty with breath hold, and motion. Hepatic steatosis. Distended gallbladder containing gallstones. Gallbladder wall thickening/trace pericholecystic fluid. There is no intrahepatic biliary ductal dilatation. The distal common bile duct is not adequately visualized. The visualized portions of the common bile duct appear within normal limits of caliber without evidence of focal filling defect. The pancreatic duct does not appear dilated. 1.8 cm T2 bright right renal mass cannot be further characterized on this noncontrast limited study. Peripancreatic fluid. The included portions of the noncontrast adrenal glands, left kidney, and spleen appear grossly unremarkable. No bulky abdominal lymphadenopathy is seen. Small bilateral pleural effusions and dependent consolidations. Multilevel degenerative changes. Impression: Examination markedly limited due to patient condition, difficulty with breath hold, and motion. Hepatic steatosis. Distended gallbladder containing gallstones. Gallbladder wall thickening/trace pericholecystic fluid. The distal common bile duct is not adequately visualized, however the visualized portions of the common bile duct appear within normal limits of caliber without evidence of focal filling defect. Peripancreatic inflammatory changes and pancreatic edema consistent with pancreatitis. Although no stones are currently evident within the common bile duct, gallstone pancreatitis remains potential etiology for the findings. Small bilateral pleural effusions and dependent consolidations.
[2016-07-15 11:53] LABS: BLOOD UREA NITROGEN 25 mg/dl (7-17); CARBON DIOXIDE 25 mmol/L (22-30); CHLORIDE 111 mmol/L (98-107); GFR AFRICAN-AMERICAN > 60; GLUCOSE,RANDOM 86 mg/dL (65-105); POTASSIUM 4.3 MMOL/L (3.6-5.0); SODIUM 149 mmol/l (132-148)
[2016-07-15] MEDS ORDERED: Meropenem 1 GM in Sodium Chloride 0.9% 100 ML IVPB ONE (17:08)
[2016-07-15] MEDS: Piperacillin/Tazobact 3.375 GM in Sodium Chloride 0.9% 100 ML IVPB SCH (17:20)
--- NOTE | 2016-07-15 18:06 | CP.PCM.CON ---
History of Present Illness - History of Present Illness History of Present Illness: 86 yo female admitted with abdominal pain and lab evidence of pancreatitis. Has gallstones Review of Systems - Constitutional Constitutional: absent: Chills - EENT Eyes: absent: Blind Spots Nose/Mouth/Throat: absent: Epistaxis - Breasts Breasts: absent: Mass - Cardiovascular Cardiovascular: absent: Chest Pain - Respiratory Respiratory: absent: Cough - Gastrointestinal Gastrointestinal: Abdominal Pain Past Patient History - Infectious Disease Hx of Infectious Diseases: None - Tetanus Immunizations Tetanus Immunization: Unknown, Allergy to Tetanus Vaccine - Past Medical History & Family History Past Medical History?: Yes - Past Social History Alcohol: None Drugs: Denies - CARDIAC Hx Hypertension: Yes - PULMONARY Hx Pneumonia: Yes - NEUROLOGICAL Hx Dementia: Yes - HEENT Hx HEENT Problems: No - RENAL Hx Chronic Kidney Disease: No - ENDOCRINE/METABOLIC Hx Endocrine Disorders: No - HEMATOLOGICAL/ONCOLOGICAL Hx Human Immunodeficiency Virus (HIV): No - INTEGUMENTARY Hx Dermatological Problems: No - MUSCULOSKELETAL/RHEUMATOLOGICAL Hx Arthritis: Yes Hx Fractures: Yes (right femur fx with surgery) Hx Osteoporosis: Yes Hx Rheumatoid Arthritis: Yes - GASTROINTESTINAL Hx Gastrointestinal Disorders: Yes Hx Gastroesophageal Reflux: Yes - GENITOURINARY/GYNECOLOGICAL Hx Genitourinary Disorders: Yes Hx Urinary Tract Infection: Yes Other/Comment: recurrent UTI - PSYCHIATRIC Hx Depression: Yes - SURGICAL HISTORY Hx Appendectomy: Yes - ANESTHESIA Hx Anesthesia: Yes Hx Anesthesia Reactions: No Hx Malignant Hyperthermia: No Meds Allergies/Adverse Reactions: Allergies Allergy/AdvReac Type Severity Reaction Status Date / Time No Known Allergies Allergy Verified 07/14/16 05:57 - Medications Medications: Current Medications Albuterol/Ipratropium (Duoneb 3 Mg/0.5 Mg (3 Ml) Ud) 3 ml IH Q8H PRN PRN Reason: wheezing/shortness of breath Aspirin (Aspirin Chewable) 81 mg PO DAILY [facility] Last Admin: 07/15/16 10:50 Dose: Not Given Atorvastatin Calcium (Lipitor) 10 mg PO HS [facility] Last Admin: 07/14/16 21:43 Dose: Not Given Bisacodyl (Dulcolax) 10 mg [place] DAILY PRN PRN Reason: Constipation Calcium/Vitamin D (Oyster Shell Calcium/Vitamin D 500 Mg-200 Iu) 1 tab PO DAILY [facility] Last Admin: 07/15/16 09:00 Dose: Not Given Docusate Sodium (Colace) 100 mg PO BID [facility] Last Admin: 07/15/16 10:51 Dose: Not Given Enoxaparin Sodium (Lovenox) 30 mg SC DAILY [facility] PRN Reason: Protocol Ferrous Sulfate (Feosol) 325 mg PO BID [facility] Last Admin: 07/15/16 10:26 Dose: 325 mg Home Med (Difluprednate [Durezol]) 1 drop LEFTEYE BID [facility] Sodium Chloride (Sodium Chloride 0.9%) 1,000 mls @ 125 mls/hr IV .Q8H [facility] Stop: 07/16/16 08:01 Last Admin: 07/15/16 17:38 Dose: Not Given Piperacillin Sod/Tazobactam (Sod 3.375 gm/ Sodium Chloride) 100 mls @ 100 mls/ hr IVPB 0600,1200,1800,0000 [facility] Meropenem 1 gm/ Sodium (Chloride) 100 mls @ 100 mls/hr IVPB Q8 [facility] Meropenem 1 gm/ Sodium (Chloride) 100 mls @ 100 mls/hr IVPB ONCE ONE Stop: 07/15/16 18:07 Ketorolac Tromethamine (Toradol) 15 mg IVP Q6 PRN PRN Reason: pain 4-10 Last Admin: 07/14/16 18:27 Dose: 15 mg Lisinopril (Zestril) 20 mg PO DAILY [facility] Last Admin: 07/15/16 10:49 Dose: Not Given Magnesium Hydroxide (Milk Of Magnesia) 30 ml PO HS PRN PRN Reason: Constipation Multivitamins/Minerals (Therapeutic-M Tab) 1 tab PO DAILY [facility] Last Admin: 07/15/16 10:48 Dose: Not Given Simethicone (Mylicon Chew Tab) 160 mg PO BID PRN PRN Reason: gas Physical Exam - Head Exam Head Exam: ATRAUMATIC - Eye Exam Eye Exam: Normal appearance - ENT Exam ENT Exam: Mucous Membranes Moist - Respiratory Exam Respiratory Exam: Clear to Auscultation Bilateral - Cardiovascular Exam Cardiovascular Exam: REGULAR RHYTHM, +S1, +S2 - GI/Abdominal Exam GI & Abdominal Exam: Normal Bowel Sounds, Soft, Tenderness Results - Vital Signs Recent Vital Signs: Last Vital Signs Temp 98.8 F 07/15/16 17:37 Pulse 80 07/15/16 17:37 Resp 20 07/15/16 17:37 BP 123/53 L 07/15/16 17:37 Pulse Ox 98 07/15/16 17:37 - Labs Result Diagrams: 07/15/16 11:29 07/15/16 11:29 Labs: Laboratory Results - last 24 hr 07/15/16 07/15/16 07/15/16 08:15 08:48 11:29 WBC 17.1 H 17.6 H RBC 2.89 L 3.05 L Hgb 8.4 L D 9.0 L Hct 25.9 L 27.3 L MCV 89.7 89.6 MCH 29.2 29.5 MCHC 32.5 L 32.9 L RDW 14.4 14.3 Plt Count 94 L D 100 L MPV 10.6 10.5 Neut % (Auto) 88.5 H 89.3 H Lymph % (Auto) 4.1 L 3.5 L [place] % (Auto) 7.2 7.0 Eos % (Auto) 0.1 0.1 Baso % (Auto) 0.1 0.1 Neut # 15.2 H 15.7 H Lymph # 0.7 L 0.6 L [place] # 1.2 H 1.2 H Eos # 0.0 0.0 Baso # 0.0 0.0 Sodium 148 149 H Potassium 4.1 4.3 Chloride 113 H 111 H Carbon Dioxide 24 25 Anion Gap 15 17 BUN 24 H 25 H Creatinine 1.0 1.0 Est GFR ( Amer) > 60 > 60 Est GFR (Non-Af Amer) 52 52 Random Glucose 91 86 Lactic Acid 0.9 Calcium 7.8 L 8.0 L Total Bilirubin 1.2 AST 349 H ALT 348 H D Alkaline Phosphatase 132 H Total Protein 5.4 L Albumin 2.7 L D Globulin 2.7 Albumin/Globulin Ratio 1.0 Lipase 2495 H Assessment & Plan (1) Gallstone pancreatitis Assessment and Plan: No evidence of persisting CBD stones and therefore ERCP not indicated. Gallbladder management as per surgery. Status: Acute
[2016-07-16] MEDS: Piperacillin/Tazobact 3.375 GM in Sodium Chloride 0.9% 100 ML IVPB SCH ×3 (00:10→13:27)
[2016-07-16] MEDS: Meropenem 1 GM in Sodium Chloride 0.9% 100 ML IVPB SCH ×3 (01:15→16:42)
--- NOTE | 2016-07-16 07:52 | CP.PCM.CON ---
History of Present Illness - History of Present Illness History of Present Illness: 86 y/o female w/ Dementia admitted after a fall Pt found to have Cholelithiasis Cardiology consult called for Pre-Op clearance Pt denies chest pain/sob/palpitations PMH: HTN CVA Dementia LABS: elevated WBC / Lipase EKG: NSR Past Patient History - Infectious Disease Hx of Infectious Diseases: None - Tetanus Immunizations Tetanus Immunization: Unknown, Allergy to Tetanus Vaccine - Past Medical History & Family History Past Medical History?: Yes - Past Social History Alcohol: None Drugs: Denies - CARDIAC Hx Hypertension: Yes - PULMONARY Hx Pneumonia: Yes - NEUROLOGICAL Hx Dementia: Yes - HEENT Hx HEENT Problems: No - RENAL Hx Chronic Kidney Disease: No - ENDOCRINE/METABOLIC Hx Endocrine Disorders: No - HEMATOLOGICAL/ONCOLOGICAL Hx Human Immunodeficiency Virus (HIV): No - INTEGUMENTARY Hx Dermatological Problems: No - MUSCULOSKELETAL/RHEUMATOLOGICAL Hx Arthritis: Yes Hx Fractures: Yes (right femur fx with surgery) Hx Osteoporosis: Yes Hx Rheumatoid Arthritis: Yes - GASTROINTESTINAL Hx Gastrointestinal Disorders: Yes Hx Gastroesophageal Reflux: Yes - GENITOURINARY/GYNECOLOGICAL Hx Genitourinary Disorders: Yes Hx Urinary Tract Infection: Yes Other/Comment: recurrent UTI - PSYCHIATRIC Hx Depression: Yes - SURGICAL HISTORY Hx Appendectomy: Yes - ANESTHESIA Hx Anesthesia: Yes Hx Anesthesia Reactions: No Hx Malignant Hyperthermia: No Meds Allergies/Adverse Reactions: Allergies Allergy/AdvReac Type Severity Reaction Status Date / Time No Known Allergies Allergy Verified 07/14/16 05:57 - Medications Medications: Current Medications Albuterol/Ipratropium (Duoneb 3 Mg/0.5 Mg (3 Ml) Ud) 3 ml IH Q8H PRN PRN Reason: wheezing/shortness of breath Aspirin (Aspirin Chewable) 81 mg PO DAILY [facility] Last Admin: 07/15/16 10:50 Dose: Not Given Atorvastatin Calcium (Lipitor) 10 mg PO HS [facility] Last Admin: 07/15/16 21:31 Dose: 10 mg Bisacodyl (Dulcolax) 10 mg [place] DAILY PRN PRN Reason: Constipation Calcium/Vitamin D (Oyster Shell Calcium/Vitamin D 500 Mg-200 Iu) 1 tab PO DAILY [facility] Last Admin: 07/15/16 09:00 Dose: Not Given Docusate Sodium (Colace) 100 mg PO BID [facility] Last Admin: 07/15/16 10:51 Dose: Not Given Enoxaparin Sodium (Lovenox) 30 mg SC DAILY [facility] PRN Reason: Protocol Ferrous Sulfate (Feosol) 325 mg PO BID [facility] Last Admin: 07/15/16 10:26 Dose: 325 mg Home Med (Difluprednate [Durezol]) 1 drop LEFTEYE BID [facility] Sodium Chloride (Sodium Chloride 0.9%) 1,000 mls @ 125 mls/hr IV .Q8H [facility] Stop: 07/16/16 08:01 Last Admin: 07/15/16 23:00 Dose: 125 mls/hr Piperacillin Sod/Tazobactam (Sod 3.375 gm/ Sodium Chloride) 100 mls @ 100 mls/ hr IVPB 0600,1200,1800,0000 [facility] Last Admin: 07/16/16 05:40 Dose: 100 mls/hr Meropenem 1 gm/ Sodium (Chloride) 100 mls @ 100 mls/hr IVPB Q8 [facility] Last Admin: 07/16/16 01:15 Dose: 100 mls/hr Ketorolac Tromethamine (Toradol) 15 mg IVP Q6 PRN PRN Reason: pain 4-10 Last Admin: 07/14/16 18:27 Dose: 15 mg Lisinopril (Zestril) 20 mg PO DAILY [facility] Last Admin: 07/15/16 10:49 Dose: Not Given Magnesium Hydroxide (Milk Of Magnesia) 30 ml PO HS PRN PRN Reason: Constipation Multivitamins/Minerals (Therapeutic-M Tab) 1 tab PO DAILY [facility] Last Admin: 07/15/16 10:48 Dose: Not Given Simethicone (Mylicon Chew Tab) 160 mg PO BID PRN PRN Reason: gas Results - Vital Signs Recent Vital Signs: Last Vital Signs Temp 98.6 F 07/16/16 05:08 Pulse 77 07/16/16 05:08 Resp 21 07/16/16 05:08 BP 143/64 07/16/16 05:08 Pulse Ox 95 07/16/16 05:08 - Labs Result Diagrams: 07/16/16 10:30 07/16/16 10:30 Labs: Laboratory Results - last 24 hr 07/15/16 07/15/16 07/15/16 08:15 08:48 11:29 WBC 17.1 H 17.6 H RBC 2.89 L 3.05 L Hgb 8.4 L D 9.0 L Hct 25.9 L 27.3 L MCV 89.7 89.6 MCH 29.2 29.5 MCHC 32.5 L 32.9 L RDW 14.4 14.3 Plt Count 94 L D 100 L MPV 10.6 10.5 Neut % (Auto) 88.5 H 89.3 H Lymph % (Auto) 4.1 L 3.5 L [place] % (Auto) 7.2 7.0 Eos % (Auto) 0.1 0.1 Baso % (Auto) 0.1 0.1 Neut # 15.2 H 15.7 H Lymph # 0.7 L 0.6 L [place] # 1.2 H 1.2 H Eos # 0.0 0.0 Baso # 0.0 0.0 Sodium 148 149 H Potassium 4.1 4.3 Chloride 113 H 111 H Carbon Dioxide 24 25 Anion Gap 15 17 BUN 24 H 25 H Creatinine 1.0 1.0 Est GFR ( Amer) > 60 > 60 Est GFR (Non-Af Amer) 52 52 Random Glucose 91 86 Lactic Acid 0.9 Calcium 7.8 L 8.0 L Total Bilirubin 1.2 AST 349 H ALT 348 H D Alkaline Phosphatase 132 H Total Protein 5.4 L Albumin 2.7 L D Globulin 2.7 Albumin/Globulin Ratio 1.0 Lipase 2495 H Assessment & Plan (1) Acute cholecystitis Assessment and Plan: The patient is cleared for surgery Status: Acute (2) Gallstone pancreatitis Status: Acute (3) Hypertension Status: Chronic Priority: High
--- NOTE | 2016-07-16 08:08 | CP.PCM.PN ---
Addendum entered and electronically signed by Parrish Barros DO 07/16/16 14: 35: Correction; surgery is not signing off. will continue to follow Addendum entered and electronically signed by Parrish Barros DO 07/16/16 12: 05: WBC significantly improved. LFTs trending down. Surgery signing off. Original Note: <Parrish Barros - Last Filed: 07/16/16 08:09> Subjective - Date & Time of Evaluation Date of Evaluation: 07/16/16 Time of Evaluation: 08:05 - Subjective Subjective: Gen Sx: Dr Judge Pt S&E. Pt was transferred to telemetry last night. Pt states still with pain in RUQ, still with nausea. Denies vomiting, fevers or chills. PT states she is very thirsty. Would like to be started on a diet. d/w pt she may need her gallbladder drained. She says she does not want anything done and just wants a soda. Pt states her niece is available to speak to if needed Objective - Vital Signs/Intake and Output Vital Signs (last 24 hours): Temp Pulse Resp BP Pulse Ox 98.6 F 77 21 143/64 95 07/16/16 05:08 07/16/16 05:08 07/16/16 05:08 07/16/16 05:08 07/16/16 05:08 - Medications Medications: Current Medications Albuterol/Ipratropium (Duoneb 3 Mg/0.5 Mg (3 Ml) Ud) 3 ml IH Q8H PRN PRN Reason: wheezing/shortness of breath Aspirin (Aspirin Chewable) 81 mg PO DAILY [facility] Last Admin: 07/15/16 10:50 Dose: Not Given Atorvastatin Calcium (Lipitor) 10 mg PO HS [facility] Last Admin: 07/15/16 21:31 Dose: 10 mg Bisacodyl (Dulcolax) 10 mg [place] DAILY PRN PRN Reason: Constipation Calcium/Vitamin D (Oyster Shell Calcium/Vitamin D 500 Mg-200 Iu) 1 tab PO DAILY [facility] Last Admin: 07/15/16 09:00 Dose: Not Given Docusate Sodium (Colace) 100 mg PO BID [facility] Last Admin: 07/15/16 10:51 Dose: Not Given Enoxaparin Sodium (Lovenox) 30 mg SC DAILY [facility] PRN Reason: Protocol Ferrous Sulfate (Feosol) 325 mg PO BID [facility] Last Admin: 07/15/16 10:26 Dose: 325 mg Home Med (Difluprednate [Durezol]) 1 drop LEFTEYE BID [facility] Piperacillin Sod/Tazobactam (Sod 3.375 gm/ Sodium Chloride) 100 mls @ 100 mls/ hr IVPB 0600,1200,1800,0000 [facility] Last Admin: 07/16/16 05:40 Dose: 100 mls/hr [place]open[place] 1 gm/ Sodium (Chloride) 100 mls @ 100 mls/hr IVPB Q8 [facility] Last Admin: 07/16/16 01:15 Dose: 100 mls/hr Ketorolac Tromethamine (Toradol) 15 mg IVP Q6 PRN PRN Reason: pain 4-10 Last Admin: 07/14/16 18:27 Dose: 15 mg Lisinopril (Zestril) 20 mg PO DAILY [facility] Last Admin: 07/15/16 10:49 Dose: Not Given Magnesium Hydroxide (Milk Of Magnesia) 30 ml PO HS PRN PRN Reason: Constipation Multivitamins/Minerals (Therapeutic-M Tab) 1 tab PO DAILY [facility] Last Admin: 07/15/16 10:48 Dose: Not Given Simethicone (Mylicon Chew Tab) 160 mg PO BID PRN PRN Reason: gas - Labs Labs: 07/15/16 11:29 07/15/16 11:29 - Constitutional Appears: Non-toxic, No Acute Distress - Respiratory Exam Respiratory Exam: absent: Accessory Muscle Use, Respiratory Distress - Cardiovascular Exam Cardiovascular Exam: REGULAR RHYTHM. absent: Tachycardia - GI/Abdominal Exam GI & Abdominal Exam: Soft, Tenderness (RUQ). absent: Distended, Firm, Guarding - Neurological Exam Neurological Exam: Alert, Awake - Psychiatric Exam Psychiatric exam: Normal Affect, Normal Mood - Skin Skin Exam: Normal Color, Warm Assessment and Plan - Assessment and Plan (Free Text) Assessment: 86F with RUQ pain Plan: f/u pending labs if WBC worsens or LFTs continue to trend upward, would recommend IR consult for cholecystostomy or PTC tube pt is poor surgical candidate, no plans for surgical intervention, recommend above if biliary decompression is needed d/w Dr Nu Barros, PGY2 <Moe Judge - Last Filed: 07/19/16 21:25> Objective - Vital Signs/Intake and Output Vital Signs (last 24 hours): Temp Pulse Resp BP Pulse Ox 98.5 F 81 20 164/65 H 93 L 07/19/16 16:18 07/19/16 16:18 07/19/16 16:18 07/19/16 16:18 07/19/16 16:18 - Medications Medications: Current Medications Albuterol/Ipratropium (Duoneb 3 Mg/0.5 Mg (3 Ml) Ud) 3 ml IH Q8H PRN PRN Reason: wheezing/shortness of breath Amlodipine Besylate (Norvasc) 10 mg PO DAILY [facility] Last Admin: 07/19/16 09:50 Dose: 10 mg Aspirin (Aspirin Chewable) 81 mg PO DAILY [facility] Last Admin: 07/19/16 09:48 Dose: 81 mg Bisacodyl (Dulcolax) 10 mg [place] DAILY PRN PRN Reason: Constipation Calcium/Vitamin D (Oyster Shell Calcium/Vitamin D 500 Mg-200 Iu) 1 tab PO DAILY [facility] Last Admin: 07/19/16 09:50 Dose: 1 tab Docusate Sodium (Colace) 100 mg PO BID [facility] Last Admin: 07/19/16 16:31 Dose: 100 mg Ferrous Sulfate (Feosol) 325 mg PO BID [facility] Last Admin: 07/19/16 16:31 Dose: 325 mg Home Med (Difluprednate [Durezol]) 1 drop LEFTEYE BID [facility] Metronidazole (Flagyl 500mg/100ml Ns) 100 mls @ 100 mls/hr IVPB Q8 [facility] Last Admin: 07/19/16 16:26 Dose: 100 mls/hr [place] 1 gm/ Sodium (Chloride) 100 mls @ 100 mls/hr IVPB Q8 [facility] Last Admin: 07/19/16 17:33 Dose: 100 mls/hr Ketorolac Tromethamine (Toradol) 15 mg IVP Q6 PRN PRN Reason: pain 4-10 Last Admin: 07/14/16 18:27 Dose: 15 mg Lactobacillus Acidophilus (Bacid Acidophilus) 1 cap PO BID [facility] Last Admin: 07/19/16 16:31 Dose: 1 cap Lisinopril (Zestril) 20 mg PO DAILY [facility] Last Admin: 07/19/16 09:50 Dose: 20 mg Magnesium Hydroxide (Milk Of Magnesia) 30 ml PO HS PRN PRN Reason: Constipation Last Admin: 07/18/16 09:57 Dose: 30 ml Multivitamins/Minerals (Therapeutic-M Tab) 1 tab PO DAILY [facility] Last Admin: 07/19/16 09:50 Dose: 1 tab Ondansetron HCl (Zofran Inj) 4 mg IVP Q6 PRN PRN Reason: Nausea/Vomiting Last Admin: 07/19/16 16:41 Dose: 4 mg Pantoprazole Sodium (Protonix Ec Tab) 40 mg PO DAILY [facility] Simethicone (Mylicon Chew Tab) 160 mg PO BID PRN PRN Reason: gas - Labs Labs: 07/19/16 10:30 07/19/16 10:30 Attending/Attestation - Attestation I have personally seen and examined this patient.: Yes I have fully participated in the care of the patient.: Yes I have reviewed all pertinent clinical information, including history, physical exam and plan: Yes Notes (Text): 07/19/16 21:25 Pt was seen and examined at bedside on 07/16/16 Agree with above note and assessment Repeat LFT Reg low fat diet C/w IV antibiotics Plan d.w primary team.
[2016-07-16] MEDS: Sodium Chloride 0.9% 1,000 ML IV SCH (09:15)
[2016-07-16 10:39] LABS: BASO % 0.2 % (0.0-2.0); EOS % 0.4 % (0.0-4.0); HEMATOCRIT 26.5 % (34.0-47.0); LYMPH # 0.5 K/uL (1.0-4.3); LYMPH % 4.9 % (20.0-40.0); MEAN CELL VOLUME 89.7 fl (81.0-99.0); MEAN CORPUSCULAR HEMOGLOBIN 29.5 pg (27.0-31.0); MEAN CORPUSCULAR HGB CONC 32.9 g/dL (33.0-37.0); MEAN PLATELET VOLUME 10.5 fl (7.2-11.7); MONO # 0.4 K/uL (0.0-0.8); NEUT # 9.9 K/uL (1.8-7.0); NEUT % 90.5 % (50.0-75.0); PLATELET COUNT 87 K/uL (130-400); RED CELL DISTRIBUTION WIDTH 14.4 % (11.5-14.5); WHITE BLOOD COUNT 10.9 K/uL (4.8-10.8)
[2016-07-16 10:45] LABS: CHLORIDE 111 mmol/L (98-107)
[2016-07-16 10:47] LABS: POTASSIUM 3.4 MMOL/L (3.6-5.0); SODIUM 145 mmol/l (132-148)
--- NOTE | 2016-07-16 10:47 | CP.PCM.CON ---
History of Present Illness - History of Present Illness History of Present Illness: Infectious Disease Consultation Note- asked to see this patient at the request of hospitalist HPI- history obtained from the hospitalist and pt's niece who is at her bedside in tele unit. Pt. is a pleasant 86 y/o female who was brought from [place] after fall . her head Ct as per reprot was negative for any bleed . She was found however to have elevated wbc along with transaminitis and high lactate level and her abd Ct then revelaed + gasllstones and since her lipase was also elevated she was found to have gallstone pancreatitis. pt. was transferred last night from to tele unit as per secondary to abd pain and nausea and gram neg bacteremia. pt. has been seen by both GI and surgical team and as per surgical team's note today since her leukocytosis is improving on abx no need fro surgery at this time and as per GI no need fro ERCp since no evidence of CBD obstruction ( as per GI note). I had advised last night to start pt. on meropenem piedad over the GNR bacteremia and to start IV flagyl as well . Pt. currently in NAD but does have nausea and some vomiting at this minute along with minor cough. as per pt's nurse she also has very foul smelling urine. As per pt's Niece she had foul smelling urine for the past 2 weeks in the [place] as ewll. Pt. denies any diarrhea but states she suffers from chronic constipation. PMD: Dr. Spain PMH:HTN, arthritis, respiratory failure, CVA, head injury, PSH:s/p ORIF R, SH: Denies tobacco,denies ETOH, denies drugs lives at [place] ALLERGIES: NKDA Review of Systems - Review of Systems Review of Systems: ROS- denies any fever or chills, denies any BLAND, + cough with some yellow phlegm, denies any sob, denies any chest pain, + abd pain mostly in RUQ but better now, denies any lower abd pain, denies any back pain, denies any dysurea but states has frequent urination and malodorous urine, denies any diarrhea Past Patient History - Infectious Disease Hx of Infectious Diseases: None - Tetanus Immunizations Tetanus Immunization: Unknown, Allergy to Tetanus Vaccine - Past Medical History & Family History Past Medical History?: Yes - Past Social History Alcohol: None Drugs: Denies Home Situation {Lives}: Group Home - CARDIAC Hx Hypertension: Yes - PULMONARY Hx Pneumonia: Yes - NEUROLOGICAL Hx Dementia: Yes - HEENT Hx HEENT Problems: No - RENAL Hx Chronic Kidney Disease: No - ENDOCRINE/METABOLIC Hx Endocrine Disorders: No - HEMATOLOGICAL/ONCOLOGICAL Hx Blood Disorders: No - INTEGUMENTARY Hx Dermatological Problems: No - MUSCULOSKELETAL/RHEUMATOLOGICAL Hx Arthritis: Yes Hx Fractures: Yes (right femur fx with surgery) Hx Osteoporosis: Yes Hx Rheumatoid Arthritis: Yes - GASTROINTESTINAL Hx Gastrointestinal Disorders: Yes Hx Gastroesophageal Reflux: Yes - GENITOURINARY/GYNECOLOGICAL Hx Genitourinary Disorders: Yes Hx Urinary Tract Infection: Yes Other/Comment: recurrent UTI - PSYCHIATRIC Hx Depression: Yes - SURGICAL HISTORY Hx Appendectomy: Yes - ANESTHESIA Hx Anesthesia: Yes Hx Anesthesia Reactions: No Hx Malignant Hyperthermia: No Meds Allergies/Adverse Reactions: Allergies Allergy/AdvReac Type Severity Reaction Status Date / Time No Known Allergies Allergy Verified 07/14/16 05:57 - Medications Medications: Current Medications Albuterol/Ipratropium (Duoneb 3 Mg/0.5 Mg (3 Ml) Ud) 3 ml IH Q8H PRN PRN Reason: wheezing/shortness of breath Aspirin (Aspirin Chewable) 81 mg PO DAILY [facility] Last Admin: 07/15/16 10:50 Dose: Not Given Atorvastatin Calcium (Lipitor) 10 mg PO HS [facility] Last Admin: 07/15/16 21:31 Dose: 10 mg Bisacodyl (Dulcolax) 10 mg TN DAILY PRN PRN Reason: Constipation Calcium/Vitamin D (Oyster Shell Calcium/Vitamin D 500 Mg-200 Iu) 1 tab PO DAILY [facility] Last Admin: 07/15/16 09:00 Dose: Not Given Docusate Sodium (Colace) 100 mg PO BID [facility] Last Admin: 07/15/16 10:51 Dose: Not Given Enoxaparin Sodium (Lovenox) 30 mg SC DAILY [facility] PRN Reason: Protocol Ferrous Sulfate (Feosol) 325 mg PO BID [facility] Last Admin: 07/15/16 10:26 Dose: 325 mg Home Med (Difluprednate [Durezol]) 1 drop LEFTEYE BID [facility] Piperacillin Sod/Tazobactam (Sod 3.375 gm/ Sodium Chloride) 100 mls @ 100 mls/ hr IVPB 0600,1200,1800,0000 [facility] Last Admin: 07/16/16 05:40 Dose: 100 mls/hr Meropenem 1 gm/ Sodium (Chloride) 100 mls @ 100 mls/hr IVPB Q8 [facility] Last Admin: 07/16/16 09:14 Dose: 100 mls/hr Ketorolac Tromethamine (Toradol) 15 mg IVP Q6 PRN PRN Reason: pain 4-10 Last Admin: 07/14/16 18:27 Dose: 15 mg Lisinopril (Zestril) 20 mg PO DAILY [facility] Last Admin: 07/15/16 10:49 Dose: Not Given Magnesium Hydroxide (Milk Of Magnesia) 30 ml PO HS PRN PRN Reason: Constipation Multivitamins/Minerals (Therapeutic-M Tab) 1 tab PO DAILY [facility] Last Admin: 07/15/16 10:48 Dose: Not Given Simethicone (Mylicon Chew Tab) 160 mg PO BID PRN PRN Reason: gas Physical Exam - Constitutional Appears: No Acute Distress - Head Exam Head Exam: ATRAUMATIC - Eye Exam Eye Exam: EOMI, PERRL - ENT Exam ENT Exam: Normal Oropharynx - Neck Exam Neck exam: Positive for: Full Rom - Respiratory Exam Respiratory Exam: NORMAL BREATHING PATTERN Additional comments: does have some coarse breath sounds bibasilar no wheezing - Cardiovascular Exam Cardiovascular Exam: RRR, +S1, +S2 - GI/Abdominal Exam Additional comments: slightly distended, + ventral hernia, slight tenderness to palpation in RUQ region + BS No guarding, no rebound - Extremities Exam Extremities exam: Positive for: normal inspection - Neurological Exam Neurological exam: Alert, Oriented x3 Results - Vital Signs Recent Vital Signs: Last Vital Signs Temp 97.9 F 07/16/16 08:00 Pulse 67 07/16/16 08:00 Resp 18 07/16/16 08:00 BP 152/71 H 07/16/16 08:00 Pulse Ox 97 07/16/16 08:00 - Labs Result Diagrams: 07/16/16 10:30 07/16/16 10:30 Labs: Laboratory Results - last 24 hr 07/15/16 07/16/16 11:29 10:30 WBC 17.6 H 10.9 H RBC 3.05 L 2.96 L Hgb 9.0 L 8.7 L Hct 27.3 L 26.5 L MCV 89.6 89.7 MCH 29.5 29.5 MCHC 32.9 L 32.9 L RDW 14.3 14.4 Plt Count 100 L 87 L MPV 10.5 10.5 Neut % (Auto) 89.3 H 90.5 H Lymph % (Auto) 3.5 L 4.9 L [place] % (Auto) 7.0 4.0 Eos % (Auto) 0.1 0.4 Baso % (Auto) 0.1 0.2 Neut # 15.7 H 9.9 H Lymph # 0.6 L 0.5 L [place] # 1.2 H 0.4 Eos # 0.0 0.0 Baso # 0.0 0.0 Sodium 149 H Potassium 4.3 Chloride 111 H Carbon Dioxide 25 Anion Gap 17 BUN 25 H Creatinine 1.0 Est GFR ( Amer) > 60 Est GFR (Non-Af Amer) 52 Random Glucose 86 Lactic Acid 0.9 Calcium 8.0 L Laboratory Results - last 72 hr 07/14/16 07/14/16 07/14/16 07:24 07:25 11:40 WBC 11.6 H D RBC 3.85 Hgb 11.4 L D Hct 34.5 MCV 89.6 MCH 29.6 MCHC 33.1 RDW 13.9 Plt Count 144 MPV 10.1 Neut % (Auto) 92.6 H Lymph % (Auto) 4.4 L [place] % (Auto) 2.6 Eos % (Auto) 0.0 Baso % (Auto) 0.4 Neut # 10.8 H Lymph # 0.5 L [place] # 0.3 Eos # 0.0 Baso # 0.0 Neutrophils % (Manual) 88 H Band Neutrophils % 3 H Lymphocytes % (Manual) 5 L Monocytes % (Manual) 4 Eosinophils % (Manual) Toxic Granulation Present Platelet Estimate Normal Large Platelets Present Giant Platelets Present RBC Morphology Hypochromasia (manual) Slight Ovalocytes Slight pCO2 38 pO2 86 HCO3 27.9 ABG pH 7.47 H ABG Total CO2 28.9 H ABG O2 Saturation 100.9 H ABG Base Excess 3.8 H [place] Test Yes ABG Potassium 3.9 A-a O2 Difference 66.0 Glucose 138 H Lactate 3.3 H Vent Mode Nc FiO2 28.0 Sodium 137 138.0 Potassium 4.3 Chloride 101 107.0 Carbon Dioxide 22 Anion Gap 18 BUN 24 H Creatinine 1.2 Est GFR ( Amer) 51 Est GFR (Non-Af Amer) 42 Random Glucose 175 H Lactic Acid Calcium 10.0 Total Bilirubin 0.9 AST 340 H D ALT 131 H D Alkaline Phosphatase 140 H D Troponin I < 0.0120 Total Protein 7.6 Albumin 4.3 Globulin 3.3 Albumin/Globulin Ratio 1.3 Lipase Arterial Blood Potassium 3.9 Urine Color Yellow Urine Clarity Slighty-cloudy Urine pH 7.0 Ur Specific [place] 1.011 Urine Protein 30 Urine Glucose (UA) Neg Urine Ketones Negative Urine Blood Negative Urine Nitrate Negative Urine Bilirubin Negative Urine Urobilinogen 0.2-1.0 Ur Leukocyte Esterase Small Urine RBC (Auto) 5 H Urine Microscopic WBC 26 H Urine Bacteria Occ H 07/14/16 07/14/16 07/14/16 11:41 15:15 16:00 WBC RBC Hgb Hct MCV MCH MCHC RDW Plt Count MPV Neut % (Auto) Lymph % (Auto) [place] % (Auto) Eos % (Auto) Baso % (Auto) Neut # Lymph # [place] # Eos # Baso # Neutrophils % (Manual) Band Neutrophils % Lymphocytes % (Manual) Monocytes % (Manual) Eosinophils % (Manual) Toxic Granulation Platelet Estimate Large Platelets Giant Platelets RBC Morphology Hypochromasia (manual) Ovalocytes pCO2 43 pO2 88 HCO3 27.8 ABG pH 7.43 ABG Total CO2 29.8 H ABG O2 Saturation 98.9 H ABG Base Excess 3.7 H Neno Test Yes ABG Potassium 3.4 L A-a O2 Difference 58.0 Glucose 161 H Lactate 2.1 Vent Mode FiO2 28.0 Sodium 128.0 L Potassium Chloride 111.0 H Carbon Dioxide Anion Gap BUN Creatinine Est GFR ( Amer) Est GFR (Non-Af Amer) Random Glucose Lactic Acid 2.7 H Calcium Total Bilirubin AST ALT Alkaline Phosphatase Troponin I Total Protein Albumin Globulin Albumin/Globulin Ratio Lipase 89844 H Arterial Blood Potassium 3.4 L Urine Color Urine Clarity Urine pH Ur Specific [place] Urine Protein Urine Glucose (UA) Urine Ketones Urine Blood Urine Nitrate Urine Bilirubin Urine Urobilinogen Ur Leukocyte Esterase Urine RBC (Auto) Urine Microscopic WBC Urine Bacteria 07/15/16 07/15/16 07/15/16 08:15 08:48 11:29 WBC 17.1 H 17.6 H RBC 2.89 L 3.05 L Hgb 8.4 L D 9.0 L Hct 25.9 L 27.3 L MCV 89.7 89.6 MCH 29.2 29.5 MCHC 32.5 L 32.9 L RDW 14.4 14.3 Plt Count 94 L D 100 L MPV 10.6 10.5 Neut % (Auto) 88.5 H 89.3 H Lymph % (Auto) 4.1 L 3.5 L [place] % (Auto) 7.2 7.0 Eos % (Auto) 0.1 0.1 Baso % (Auto) 0.1 0.1 Neut # 15.2 H 15.7 H Lymph # 0.7 L 0.6 L [place] # 1.2 H 1.2 H Eos # 0.0 0.0 Baso # 0.0 0.0 Neutrophils % (Manual) Band Neutrophils % Lymphocytes % (Manual) Monocytes % (Manual) Eosinophils % (Manual) Toxic Granulation Platelet Estimate Large Platelets Giant Platelets RBC Morphology Hypochromasia (manual) Ovalocytes pCO2 pO2 HCO3 ABG pH ABG Total CO2 ABG O2 Saturation ABG Base Excess [place]eno Test ABG Potassium A-a O2 Difference Glucose Lactate Vent Mode FiO2 Sodium 148 149 H Potassium 4.1 4.3 Chloride 113 H 111 H Carbon Dioxide 24 25 Anion Gap 15 17 BUN 24 H 25 H Creatinine 1.0 1.0 Est GFR ( Amer) > 60 > 60 Est GFR (Non-Af Amer) 52 52 Random Glucose 91 86 Lactic Acid 0.9 Calcium 7.8 L 8.0 L Total Bilirubin 1.2 AST 349 H ALT 348 H D Alkaline Phosphatase 132 H Troponin I Total Protein 5.4 L Albumin 2.7 L D Globulin 2.7 Albumin/Globulin Ratio 1.0 Lipase 2495 H Arterial Blood Potassium Urine Color Urine Clarity Urine pH Ur Specific [place] Urine Protein Urine Glucose (UA) Urine Ketones Urine Blood Urine Nitrate Urine Bilirubin Urine Urobilinogen Ur Leukocyte Esterase Urine RBC (Auto) Urine Microscopic WBC Urine Bacteria 07/16/16 10:30 WBC 10.9 H RBC 2.96 L Hgb 8.7 L Hct 26.5 L MCV 89.7 MCH 29.5 MCHC 32.9 L RDW 14.4 Plt Count 87 L MPV 10.5 Neut % (Auto) 90.5 H Lymph % (Auto) 4.9 L [place] % (Auto) 4.0 Eos % (Auto) 0.4 Baso % (Auto) 0.2 Neut # 9.9 H Lymph # 0.5 L [place] # 0.4 Eos # 0.0 Baso # 0.0 Neutrophils % (Manual) 90 H Band Neutrophils % Lymphocytes % (Manual) 4 L Monocytes % (Manual) 4 Eosinophils % (Manual) 2 Toxic Granulation Platelet Estimate Normal Large Platelets Giant Platelets RBC Morphology Normal Hypochromasia (manual) Ovalocytes pCO2 pO2 HCO3 ABG pH ABG Total CO2 ABG O2 Saturation ABG Base Excess [place] Test ABG Potassium A-a O2 Difference Glucose Lactate Vent Mode FiO2 Sodium 145 Potassium 3.4 L Chloride 111 H Carbon Dioxide 24 Anion Gap 13 BUN 17 Creatinine 1.0 Est GFR ( Amer) > 60 Est GFR (Non-Af Amer) 52 Random Glucose 155 H Lactic Acid Calcium 7.7 L Total Bilirubin 0.7 AST 124 H D ALT 217 H D Alkaline Phosphatase 174 H D Troponin I Total Protein 5.7 L Albumin 2.8 L Globulin 2.8 Albumin/Globulin Ratio 1.0 Lipase 604 H Arterial Blood Potassium Urine Color Urine Clarity Urine pH Ur Specific [place] Urine Protein Urine Glucose (UA) Urine Ketones Urine Blood Urine Nitrate Urine Bilirubin Urine Urobilinogen Ur Leukocyte Esterase Urine RBC (Auto) Urine Microscopic WBC Urine Bacteria Microbiology 07/14/16 11:41 Blood Blood Culture - Preliminary Gram Negative Bobby 07/14/16 11:41 Blood Gram Stain - Final 07/14/16 11:08 Blood-Venous Blood Culture - Preliminary Gram Negative Bobby 07/14/16 11:08 Blood-Venous Gram Stain - Final 07/14/16 08:11 Urine,Catheterized Urine Culture - Final Escherichia Coli Accession No. : [id number] Patient Name / ID : CARLOS CASTILLO / [id number] Exam Date : 07/14/2016 06:08:57 ( Approved ) Study Comment : Sex / Age : F / 86Y Creator : Bereket Schafer MD Dictator : Bereket Schafer MD [employer] Sergeant : Spray Technician : Bereket Schafer MD Approver2 : Report Date : 07/14/2016 11:06:26 My Comment : HISTORY: fall COMPARISON: 09/06/2014 FINDINGS: LUNGS: No active pulmonary disease. PLEURA: No significant pleural effusion identified, no pneumothorax apparent. CARDIOVASCULAR: Normal. OSSEOUS STRUCTURES: No significant abnormalities. VISUALIZED UPPER ABDOMEN: Normal. OTHER FINDINGS: None. IMPRESSION: No active disease. Accession No. : [id number] Patient Name / ID : CARLOS CASTILLO / [id number] Exam Date : 07/14/2016 10:03:45 ( Addendum_Approved ) Study Comment : Sex / Age : F / 86Y Creator : Bereket Schafer MD Dictator : Bereket Schafer MD [employer] Sergeant : Spray Technician : Bereket Schafer MD Approver2 : Report Date : 07/14/2016 10:34:15 My Comment : ADDENDUM: Addendum dictation: Please note that upon review, 2 tiny calculi are seen within the proximal common bile duct/common hepatic duct. These are 2 mm calculi in the dependent aspect of the ductz. These are seen on series 3, image 52. [ Addendum Report Added by Bereket Schafer MD at 07/15/2016 11:38:50 ] PROCEDURE: CT Abdomen and Pelvis without intravenous contrast HISTORY: elevated LFTs COMPARISON: CT abdomen/ pelvis 07/30/2014 TECHNIQUE: Without contrast.. Contrast Dose: 0 Radiation dose: Total exam DLP = 533.45 mGy-cm. FINDINGS: LOWER THORAX: 8 mm pleural-based nodule in lingular segment left upper lobe none. No prior examination for comparison. Followup as per Fleischner society criteria includes noncontrast CT at 3-6 months and then at 18-24 months, for both low and high risk patients. Mild cardiomegaly with mitral annular calcification. LIVER: Unremarkable. No gross lesion or ductal dilatation. GALLBLADDER AND BILE DUCTS: Gallbladder contains dependent calculi. The gallbladder wall is thickened. No pericholecystic fluid. Findings are some concern for cholecystitis and further evaluation with ultrasound examination is suggested. Common bile duct measures 6 mm in diameter, within normal limits. PANCREAS: Unremarkable. No gross lesion or ductal dilatation. SPLEEN: Unremarkable. ADRENALS: Unremarkable. No mass. KIDNEYS AND URETERS: 1.7 cm exophytic mid right renal cortical mass. This measures 16 Hounsfield units. Consistent with stable cortical cyst. VASCULATURE: Unremarkable. No aortic aneurysm. BOWEL: Unremarkable. No obstruction. No gross mural thickening. APPENDIX: Not included PERITONEUM: Unremarkable. No free fluid. No free air. LYMPH NODES: Unremarkable. No enlarged lymph nodes. BONES: Grade 1 anterolisthesis L3-4. No spondylolysis. Degenerative disc disease L3-4 and L4-5. OTHER FINDINGS: None. IMPRESSION: Thickened gallbladder wall with multiple dependent gallstones. Findings are of some concern for cholecystitis. Evaluation with ultrasound examination is suggested. No evidence of biliary obstruction. Exophytic mid right renal cortical cysts stable since 12/30/2014. Additional minor findings as above. Assessment & Plan (1) Gallstone pancreatitis Status: Acute (2) Sepsis Status: Acute (3) UTI (urinary tract infection) Status: Acute Priority: High - Assessment and Plan (Free Text) Assessment: A/P- 86 y/o female s/p fall found to have gallstone pancreatitis, UTI and GNR bacteremia. source of gram negative bacteremia most likely from the untreated UTI, however, biliary origin is also possiblein light of acute gallstoen pancreatitis. NO CBD obstruction as per abd US and Ct reports. pt. is afebrile Leukocytosis seems to have resolved today. LFTs are trending down. blood cx- GNR x 2 prelim Urine cx- E,COli not ESBL plan- advise to continue with IV meropenem day #1 for GNR bacteremia pending ID and sensitivity of the GNR bacteremia. check 2d echo r/o any vegetations. continue with Iv flagyl as well for the gallstone pancreatitis. monitor wbc and LFts. f/u GI input. monitor aspiration precautions as well. All above d/w patient and her niece who is her health care decision maker and they verbalize full understadning of all above. All above was also d/w hospitalist and Thank you for allowing me to take part in the care oft his patient.
[2016-07-16 10:49] LABS: ALKALINE PHOSPHATASE 174 U/L (38-126); ALT/SGPT 217 U/L (9-52); AST/SGOT 124 U/L (14-36); BILIRUBIN,TOTAL 0.7 mg/dl (0.2-1.3); BLOOD UREA NITROGEN 17 mg/dl (7-17); CARBON DIOXIDE 24 mmol/L (22-30); GFR AFRICAN-AMERICAN > 60; TOTAL PROTEIN 5.7 G/DL (6.3-8.2)
[2016-07-16 10:50] LABS: CALCIUM 7.7 mg/dL (8.4-10.2); GLUCOSE,RANDOM 155 mg/dL (65-105); LIPASE 604 U/L (23-300)
[2016-07-16 11:40] LABS: NEUTROPHIL 90 % (42-75); TOTAL CELLS COUNTED 100
[2016-07-16 11:41] LABS: EOSINOPHIL 2 % (0-7)
--- NOTE | 2016-07-16 16:04 | CP.PCM.PN ---
Subjective - Date & Time of Evaluation Date of Evaluation: 07/16/16 Time of Evaluation: 13:45 - Subjective Subjective: Hospitalist Progress Note (Patient was seen and examined at 1:45 PM 07/16/16 in Room 403-1 with Niece/Primary Health Surrogate Chetna Chin [phone] with Vegetable Grower Anh who helped to translate Arabic) 86 year old female who presented on 07/14/16 s/p fall. CT Head and CT Pelvis were negative. CT Abdomen/Pelvis 07/14/16 showed evidence of gallstones and findings concerning for cholecystitis. MRCP 07/14/16 also showed gallstones with evidence of cholecystitis with visualized portion of CBD appearing normal in caliber with out filling defects and evidence of pancreatitis, and bilateral pleural effusions/dependent consolidations. Chest X Ray 07/14/16 showed NO active pulmonary disease. Surgery Dr. Claros recommended GI evaluation for possible ERCP. GI Dr. Diehl does not recommend ERCP due the results of the MRCP. Surgery Dr. Claros does not recommend surgery as patient is a poor surgical candidate and recommends either Cholecystostomy or Percutaneous Transhepatic Cholangiography Tube placement if the patient's condition/labs worsen. Her LFTs, Lipase, and WBC are trending down today. However, trial of chicken broth with lunch today lead to episode of nause/vomiting. Therefore patient was remade NPO and continuation of IVF for now. Both patient and Niece Chetna are agreeable to another trial of clear liquids tomorrow 07/17/16 with breakfast and if not tolerated, then they are agreeable to decompression of gallbladder by Intervential Radiology via Cholecystostomy/PTC Tube placment. Patient also shows Blood Culture and Urine Culture (+) for Gram Negative Rods. She is on Meropenem and Flagyl and report on 2D Echo is pending to make sure there is NO evidence of vegetations. ID Dr. Langley is also following. Upon FULL ROS there is (+) N/V earlier today after trial of Chicken Broth with ( +) Abdominal Pain (patient states it is all over after her episode of N/V but currently is better), NO chest pain, NO palpitations, NO SOB/Wheezing, (+) Urination Pain and Malodorous, (+) Constipation (last bowel movement was this past Wednesday07/13/16 and it was small amount but well formed), NO lightheaded/ dizziness, NO headache, NO new changes in vision/eye pain, NO new changes in hearing/ear pain, NO peripheral edema, NO numbness/tingling. HEENT: NCA, PERRLA, EOMI, Pharynx is nonerythematous/no exudate, NO lymphadenopathy, NO thyromegaly, Oral Mucosa and Nasal Turbinates are moist Cardiology: NS1 and NS2, NO M/R/G heart sounds are faint Radiology: Faint end expiratory fine inspiratory crackles bilateral basilar area GI: Central Obesity, BS x 4, (+) Tenderness to palpation in all 4 quadrants but NO guarding/rebound tenderness, (+) Ventral Abdominal Hernia inferior to the umbilicus at the midline that is reducible/nontender to palpation/ nonerythematous/not warm (patient and Niece Chetna explain that this has been present for the past 2 months). Ext: NO edema, Pulses are strong and equal, Capillary Refill is 2 seconds, Deformed Toes bilaterally (one on top of another) Neurology: CN II through XII are grossly intact (Patient does not walk and gets around prison via wheelchair S/P Hx CVA) Skin: NO gross lesions noted on body, NO ulcers noted on any of the bony prominences, there was an area of blanchable erythema in the sacral area. Skin exam was performed with assistance of Nurse Dyer. Assessment and Plan: 1). Sepsis Likely secondary to Cholecystitis/Pancreatitis/UTI Blood Culture 07/14/16 shows (+) Gram Negative Rods Urine Culture 07/14/16 shows (+) Gram Negative Rods Meropenem 1 gm IV Q8H Flagyl 500 mg IV Q8H started 07/16/16 after discontinuation of Zosyn 07/16/16. ID Dr. Langley F/U 2D Echocardiogram report R/O Vegetation 2). Acute Cholecystitis/Pancreatitis Please see summary of care/radiology studies/and trending labs above in HPI Consult Intervential Radiology morning of 07/17/16 should the patient NOT tolerate breakfast of clear liquid diet and/or WBC/LFTs start to trend back up. Continue Meropenem and Flagyl as above Continue IVF NS at 100 mL per hour 3). UTI Please see Sepsis above 4). Hx Anemia HgB/Hct 8.7/26.5 and Platelets at 87 therefore Lovenox was discontinued (which was being used for DVT prophylaxis and B/L SCDs ordered) F/U CBC Feosol 325 mg PO 2x/day 5). Hx HTN Zestril 20 mg PO 1x/day 6). Hx CVA ASA 81 mg PO 1x/day Lipitor 10 mg PO QHS 7). Hx Arthritis Toradol 15 mg IV Q6H PRN Pain 8). 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 Prophylactic Measures Duoneb Q8H PRN SOB/Wheezing Dulcolax 10 mg MN PRN Constipation Calcium/Vitamin D 1 tab PO 1x/day Colace 100 mg PO 2x/day Bilateral SCDs Durezol 1 drop both eyes 1x/day Mag Oxide 30 mL PO QHS PRN Constipation MVI 1 tab PO 1x/day Simethicone 160 mg PO 2x/day Objective - Vital Signs/Intake and Output Vital Signs (last 24 hours): Temp Pulse Resp BP Pulse Ox 97.4 F L 81 18 137/60 96 07/16/16 12:00 07/16/16 12:00 07/16/16 12:00 07/16/16 12:00 07/16/16 12:00 - Medications Medications: Current Medications Albuterol/Ipratropium (Duoneb 3 Mg/0.5 Mg (3 Ml) Ud) 3 ml IH Q8H PRN PRN Reason: wheezing/shortness of breath Aspirin (Aspirin Chewable) 81 mg PO DAILY [facility] Last Admin: 07/15/16 10:50 Dose: Not Given Atorvastatin Calcium (Lipitor) 10 mg PO HS [facility] Last Admin: 07/15/16 21:31 Dose: 10 mg Bisacodyl (Dulcolax) 10 mg [place] DAILY PRN PRN Reason: Constipation Calcium/Vitamin D (Oyster Shell Calcium/Vitamin D 500 Mg-200 Iu) 1 tab PO DAILY [facility] Last Admin: 07/15/16 09:00 Dose: Not Given Docusate Sodium (Colace) 100 mg PO BID [facility] Last Admin: 07/15/16 10:51 Dose: Not Given Ferrous Sulfate (Feosol) 325 mg PO BID [facility] Last Admin: 07/15/16 10:26 Dose: 325 mg Home Med (Difluprednate [Durezol]) 1 drop LEFTEYE BID [facility] Meropenem 1 gm/ Sodium (Chloride) 100 mls @ 100 mls/hr IVPB Q8 [facility] Last Admin: 07/16/16 09:14 Dose: 100 mls/hr Metronidazole (Flagyl 500mg/100ml Ns) 100 mls @ 100 mls/hr IVPB Q8 [facility] Ketorolac Tromethamine (Toradol) 15 mg IVP Q6 PRN PRN Reason: pain 4-10 Last Admin: 07/14/16 18:27 Dose: 15 mg Lisinopril (Zestril) 20 mg PO DAILY [facility] Last Admin: 07/15/16 10:49 Dose: Not Given Magnesium Hydroxide (Milk Of Magnesia) 30 ml PO HS PRN PRN Reason: Constipation Multivitamins/Minerals (Therapeutic-M Tab) 1 tab PO DAILY [facility] Last Admin: 07/15/16 10:48 Dose: Not Given Ondansetron HCl (Zofran Inj) 4 mg IVP Q6 PRN PRN Reason: Nausea/Vomiting Simethicone (Mylicon Chew Tab) 160 mg PO BID PRN PRN Reason: gas - Labs Labs: 07/16/16 10:30 07/16/16 10:30
[2016-07-16] MEDS: metroNIDAZOLE 500mg/100ml NS 100 ML IVPB SCH (16:43)
--- NOTE | 2016-07-16 18:45 | CARD ---
APPROVED REPORT EXAM: Two-dimensional and M-mode echocardiogram with Doppler and color Doppler. Other Information Quality : FairRhythm : NSR Technically limited study due to Poor Echo Window INDICATION Infection: Mitral Valve E/A ratio0.0 TDI E/Lateral E'0.0E/Medial E'0.0 LEFT VENTRICLE The left ventricle is normal size. There is normal left ventricular wall thickness. The left ventricular function is normal. The left ventricular ejection fraction is 60-65% There is normal LV segmental wall motion. The left ventricular diastolic function is normal. No left ventricle thrombus noted on this study. There is no ventricular septal defect visualized. There is no left ventricular aneurysm. There is no mass noted in the left ventricle. RIGHT VENTRICLE The right ventricle is normal size. There is normal right ventricular wall thickness. The right ventricular systolic function is normal. ATRIA The left atrium size is normal. The right atrium size is normal. The interatrial septum is intact with no evidence for an atrial septal defect. AORTIC VALVE The aortic valve is normal in structure and function. No aortic regurgitation is present. There is no aortic valvular stenosis. There is no aortic valvular vegetation. MITRAL VALVE Mitral annular calcification is moderate to severe. There is no evidence of mitral valve prolapse. There is no mitral valve stenosis. There is no mitral valve regurgitation noted. TRICUSPID VALVE The tricuspid valve is normal in structure and function. There is no tricuspid valve regurgitation noted. There is no tricuspid valve prolapse or vegetation. There is no tricuspid valve stenosis. PULMONIC VALVE The pulmonary valve is normal in structure and function. There is no pulmonic valvular regurgitation. There is no pulmonic valvular stenosis. GREAT VESSELS The aortic root is normal in size. The ascending aorta is normal in size. The IVC is normal in size and collapses >50% with inspiration. PERICARDIAL EFFUSION The pericardium appears normal. There is no pleural effusion. <Conclusion> Technically Difficult Study Limited Echocardiographic Views Normal LV systolic function Mitral Annular Calcification
[2016-07-17] MEDS: Meropenem 1 GM in Sodium Chloride 0.9% 100 ML IVPB SCH ×2 (00:09→09:00)
[2016-07-17] MEDS: metroNIDAZOLE 500mg/100ml NS 100 ML IVPB SCH ×3 (00:12→17:58)
[2016-07-17 05:26] LABS: ALKALINE PHOSPHATASE 183 U/L (38-126); ALT/SGPT 159 U/L (9-52); AST/SGOT 69 U/L (14-36); BILIRUBIN,TOTAL 0.6 mg/dl (0.2-1.3); BLOOD UREA NITROGEN 12 mg/dl (7-17); CARBON DIOXIDE 27 mmol/L (22-30); CHLORIDE 111 mmol/L (98-107); GFR AFRICAN-AMERICAN > 60; GLUCOSE,RANDOM 81 mg/dL (65-105); POTASSIUM 3.7 MMOL/L (3.6-5.0); SODIUM 143 mmol/l (132-148); TOTAL PROTEIN 5.6 G/DL (6.3-8.2)
[2016-07-17 05:39] LABS: BASO % 0.3 % (0.0-2.0); EOS % 0.5 % (0.0-4.0); HEMATOCRIT 25.8 % (34.0-47.0); LYMPH # 0.5 K/uL (1.0-4.3); LYMPH % 6.8 % (20.0-40.0); MEAN CELL VOLUME 88.9 fl (81.0-99.0); MEAN CORPUSCULAR HEMOGLOBIN 29.8 pg (27.0-31.0); MEAN CORPUSCULAR HGB CONC 33.5 g/dL (33.0-37.0); MEAN PLATELET VOLUME 10.5 fl (7.2-11.7); MONO # 0.4 K/uL (0.0-0.8); NEUT # 6.3 K/uL (1.8-7.0); NEUT % 86.4 % (50.0-75.0); NRBC % 0.1 % (0.0-0.0); RED CELL DISTRIBUTION WIDTH 14.1 % (11.5-14.5); WHITE BLOOD COUNT 7.3 K/uL (4.8-10.8)
[2016-07-17 08:07] LABS: LIPASE 404 U/L (23-300)
--- NOTE | 2016-07-17 08:53 | CP.PCM.PN ---
Subjective - Date & Time of Evaluation Date of Evaluation: 07/17/16 Time of Evaluation: 13:00 - Subjective Subjective: ID Note- Pt. seen and examined with her niece at her bedside. Pt. states she feels better and denies any abdominal pain but had few times emesis tosay after trying to drink water and attempting to eat jelly. she denies any fever or chills. Objective - Vital Signs/Intake and Output Vital Signs (last 24 hours): Temp Pulse Resp BP Pulse Ox 97.2 F L 84 20 155/72 H 99 07/17/16 08:13 07/17/16 08:13 07/17/16 08:13 07/17/16 08:13 07/17/16 08:13 - Medications Medications: Current Medications Albuterol/Ipratropium (Duoneb 3 Mg/0.5 Mg (3 Ml) Ud) 3 ml IH Q8H PRN PRN Reason: wheezing/shortness of breath Aspirin (Aspirin Chewable) 81 mg PO DAILY [facility] Last Admin: 07/15/16 10:50 Dose: Not Given Atorvastatin Calcium (Lipitor) 10 mg PO HS [facility] Last Admin: 07/16/16 23:29 Dose: Not Given Bisacodyl (Dulcolax) 10 mg [place] DAILY PRN PRN Reason: Constipation Calcium/Vitamin D (Oyster Shell Calcium/Vitamin D 500 Mg-200 Iu) 1 tab PO DAILY [facility] Last Admin: 07/15/16 09:00 Dose: Not Given Docusate Sodium (Colace) 100 mg PO BID [facility] Last Admin: 07/15/16 10:51 Dose: Not Given Ferrous Sulfate (Feosol) 325 mg PO BID [facility] Last Admin: 07/15/16 10:26 Dose: 325 mg Home Med (Difluprednate [Durezol]) 1 drop LEFTEYE BID [facility] Meropenem 1 gm/ Sodium (Chloride) 100 mls @ 100 mls/hr IVPB Q8 [facility] Last Admin: 07/17/16 00:09 Dose: 100 mls/hr Metronidazole (Flagyl 500mg/100ml Ns) 100 mls @ 100 mls/hr IVPB Q8 [facility] Last Admin: 07/17/16 00:12 Dose: 100 mls/hr Ketorolac Tromethamine (Toradol) 15 mg IVP Q6 PRN PRN Reason: pain 4-10 Last Admin: 07/14/16 18:27 Dose: 15 mg Lisinopril (Zestril) 20 mg PO DAILY [facility] Last Admin: 07/15/16 10:49 Dose: Not Given Magnesium Hydroxide (Milk Of Magnesia) 30 ml PO HS PRN PRN Reason: Constipation Multivitamins/Minerals (Therapeutic-M Tab) 1 tab PO DAILY [facility] Last Admin: 07/15/16 10:48 Dose: Not Given Ondansetron HCl (Zofran Inj) 4 mg IVP Q6 PRN PRN Reason: Nausea/Vomiting Simethicone (Mylicon Chew Tab) 160 mg PO BID PRN PRN Reason: gas - Labs Labs: - Additional Findings Additional findings: - Constitutional Appears: No Acute Distress - Head Exam Head Exam: ATRAUMATIC - Eye Exam Eye Exam: EOMI, PERRL - ENT Exam ENT Exam: Normal Oropharynx - Neck Exam Neck exam: Positive for: Full Rom - Respiratory Exam Respiratory Exam: NORMAL BREATHING PATTERN Additional comments: does have some crackles at bases no wheezing - Cardiovascular Exam Cardiovascular Exam: RRR, +S1, +S2 - GI/Abdominal Exam Additional comments: slightly distended, + ventral hernia, no tenderness to palpation + BS No guarding, no rebound - Extremities Exam Extremities exam: Positive for: normal inspection - Neurological Exam Neurological exam: Alert, Oriented x 3 Laboratory Results - last 72 hr 07/14/16 07/14/16 07/15/16 15:15 16:00 08:15 WBC 17.1 H RBC 2.89 L Hgb 8.4 L D Hct 25.9 L MCV 89.7 MCH 29.2 MCHC 32.5 L RDW 14.4 Plt Count 94 L D MPV 10.6 Neut % (Auto) 88.5 H Lymph % (Auto) 4.1 L [place] % (Auto) 7.2 Eos % (Auto) 0.1 Baso % (Auto) 0.1 Neut # 15.2 H Lymph # 0.7 L [place] # 1.2 H Eos # 0.0 Baso # 0.0 Neutrophils % (Manual) Lymphocytes % (Manual) Monocytes % (Manual) Eosinophils % (Manual) Platelet Estimate RBC Morphology pCO2 43 pO2 88 HCO3 27.8 ABG pH 7.43 ABG Total CO2 29.8 H ABG O2 Saturation 98.9 H ABG Base Excess 3.7 H [place]eno Test Yes ABG Potassium 3.4 L A-a O2 Difference 58.0 Sodium 128.0 L 148 Chloride 111.0 H 113 H Glucose 161 H Lactate 2.1 FiO2 28.0 Potassium 4.1 Carbon Dioxide 24 Anion Gap 15 BUN 24 H Creatinine 1.0 Est GFR ( Amer) > 60 Est GFR (Non-Af Amer) 52 Random Glucose 91 Lactic Acid 2.7 H Calcium 7.8 L Total Bilirubin 1.2 AST 349 H ALT 348 H D Alkaline Phosphatase 132 H Total Protein 5.4 L Albumin 2.7 L D Globulin 2.7 Albumin/Globulin Ratio 1.0 Lipase Arterial Blood Potassium 3.4 L 07/15/16 07/15/16 07/16/16 08:48 11:29 10:30 WBC 17.6 H 10.9 H RBC 3.05 L 2.96 L Hgb 9.0 L 8.7 L Hct 27.3 L 26.5 L MCV 89.6 89.7 MCH 29.5 29.5 MCHC 32.9 L 32.9 L RDW 14.3 14.4 Plt Count 100 L 87 L MPV 10.5 10.5 Neut % (Auto) 89.3 H 90.5 H Lymph % (Auto) 3.5 L 4.9 L [place] % (Auto) 7.0 4.0 Eos % (Auto) 0.1 0.4 Baso % (Auto) 0.1 0.2 Neut # 15.7 H 9.9 H Lymph # 0.6 L 0.5 L [place] # 1.2 H 0.4 Eos # 0.0 0.0 Baso # 0.0 0.0 Neutrophils % (Manual) 90 H Lymphocytes % (Manual) 4 L Monocytes % (Manual) 4 Eosinophils % (Manual) 2 Platelet Estimate Normal RBC Morphology Normal pCO2 pO2 HCO3 ABG pH ABG Total CO2 ABG O2 Saturation ABG Base Excess Neno Test ABG Potassium A-a O2 Difference Sodium 149 H 145 Chloride 111 H 111 H Glucose Lactate FiO2 Potassium 4.3 3.4 L Carbon Dioxide 25 24 Anion Gap 17 13 BUN 25 H 17 Creatinine 1.0 1.0 Est GFR ( Amer) > 60 > 60 Est GFR (Non-Af Amer) 52 52 Random Glucose 86 155 H Lactic Acid 0.9 Calcium 8.0 L 7.7 L Total Bilirubin 0.7 AST 124 H D ALT 217 H D Alkaline Phosphatase 174 H D Total Protein 5.7 L Albumin 2.8 L Globulin 2.8 Albumin/Globulin Ratio 1.0 Lipase 2495 H 604 H Arterial Blood Potassium 07/17/16 04:40 WBC 7.3 RBC 2.90 L Hgb 8.6 L Hct 25.8 L MCV 88.9 MCH 29.8 MCHC 33.5 RDW 14.1 Plt Count 86 L MPV 10.5 Neut % (Auto) 86.4 H Lymph % (Auto) 6.8 L [place] % (Auto) 6.0 Eos % (Auto) 0.5 Baso % (Auto) 0.3 Neut # 6.3 Lymph # 0.5 L [place] # 0.4 Eos # 0.0 Baso # 0.0 Neutrophils % (Manual) Lymphocytes % (Manual) Monocytes % (Manual) Eosinophils % (Manual) Platelet Estimate RBC Morphology pCO2 pO2 HCO3 ABG pH ABG Total CO2 ABG O2 Saturation ABG Base Excess Neno Test ABG Potassium A-a O2 Difference Sodium 143 Chloride 111 H Glucose Lactate FiO2 Potassium 3.7 Carbon Dioxide 27 Anion Gap 9 L BUN 12 Creatinine 0.8 Est GFR ( Amer) > 60 Est GFR (Non-Af Amer) > 60 Random Glucose 81 Lactic Acid Calcium 8.0 L Total Bilirubin 0.6 AST 69 H D ALT 159 H D Alkaline Phosphatase 183 H Total Protein 5.6 L Albumin 2.8 L Globulin 2.8 Albumin/Globulin Ratio 1.0 Lipase 404 H Arterial Blood Potassium Microbiology 07/14/16 11:41 Blood Blood Culture - Final Escherichia Coli 07/14/16 11:41 Blood Gram Stain - Final 07/14/16 11:08 Blood-Venous Blood Culture - Final Escherichia Coli 07/14/16 11:08 Blood-Venous Gram Stain - Final 07/14/16 08:11 Urine,Catheterized Urine Culture - Final Escherichia Coli Assessment and Plan (1) Gallstone pancreatitis Status: Acute (2) Sepsis Status: Acute (3) UTI (urinary tract infection) Status: Acute - Assessment and Plan (Free Text) Assessment: A/P- 86 y/o female s/p fall found to have gallstone pancreatitis, UTI and GNR bacteremia. source of gram negative bacteremia most likely from the untreated UTI, however, biliary origin is also possiblein light of acute gallstoen pancreatitis. NO CBD obstruction as per abd US and Ct reports. clinically better. remains afebrile. Leukocytosis resolved. LFTs are trending down. blood cx- e.coli not ESBL x 2 Urine cx- E,COli not ESBL ech- no vegetations as per report. plan- advise to continue with IV meropenem day #2 for e.coli bacteremia. check 2d echo r/o any vegetations. continue with Iv flagyl as well for the gallstone pancreatitis. await repeat blood cx results. would need total of 14-21 days of IV abx for GNR bacteremia ( could be completed at [place] if patient feels better and can tolerate food). All above d/w patient and her niece and they verbalize full understanding of all above. also d/w .
--- NOTE | 2016-07-17 10:16 | CP.PCM.PN ---
<Waldemar Neal - Last Filed: 07/17/16 10:38> Subjective - Date & Time of Evaluation Date of Evaluation: 07/17/16 Time of Evaluation: 07:15 - Subjective Subjective: General Surgery Progress Note: Dr. Judge Patient seen and examined this morning at bedside. Patient states she feels a little better, however had multiple bouts of emesis yesterday after drinking liquids. Patient reports generalized abdominal pain which is worse in epigastrium. Denies fever/chills, chest pain/SOB. Objective - Vital Signs/Intake and Output Vital Signs (last 24 hours): Temp Pulse Resp BP Pulse Ox 97.2 F L 84 20 155/72 H 99 07/17/16 08:13 07/17/16 08:13 07/17/16 08:13 07/17/16 08:13 07/17/16 08:13 - Medications Medications: Current Medications Albuterol/Ipratropium (Duoneb 3 Mg/0.5 Mg (3 Ml) Ud) 3 ml IH Q8H PRN PRN Reason: wheezing/shortness of breath Aspirin (Aspirin Chewable) 81 mg PO DAILY [facility] Last Admin: 07/15/16 10:50 Dose: Not Given Atorvastatin Calcium (Lipitor) 10 mg PO HS [facility] Last Admin: 07/16/16 23:29 Dose: Not Given Bisacodyl (Dulcolax) 10 mg MD DAILY PRN PRN Reason: Constipation Calcium/Vitamin D (Oyster Shell Calcium/Vitamin D 500 Mg-200 Iu) 1 tab PO DAILY [facility] Last Admin: 07/15/16 09:00 Dose: Not Given Docusate Sodium (Colace) 100 mg PO BID [facility] Last Admin: 07/15/16 10:51 Dose: Not Given Ferrous Sulfate (Feosol) 325 mg PO BID [facility] Last Admin: 07/15/16 10:26 Dose: 325 mg Home Med (Difluprednate [Durezol]) 1 drop LEFTEYE BID [facility] Metronidazole (Flagyl 500mg/100ml Ns) 100 mls @ 100 mls/hr IVPB Q8 [facility] Last Admin: 07/17/16 09:04 Dose: 100 mls/hr Meropenem 1 gm/ Sodium (Chloride) 50 mls @ 50 mls/hr IVPB Q8 [facility] Ketorolac Tromethamine (Toradol) 15 mg IVP Q6 PRN PRN Reason: pain 4-10 Last Admin: 07/14/16 18:27 Dose: 15 mg Lisinopril (Zestril) 20 mg PO DAILY [facility] Last Admin: 07/15/16 10:49 Dose: Not Given Magnesium Hydroxide (Milk Of Magnesia) 30 ml PO HS PRN PRN Reason: Constipation Multivitamins/Minerals (Therapeutic-M Tab) 1 tab PO DAILY [facility] Last Admin: 07/15/16 10:48 Dose: Not Given Ondansetron HCl (Zofran Inj) 4 mg IVP Q6 PRN PRN Reason: Nausea/Vomiting Simethicone (Mylicon Chew Tab) 160 mg PO BID PRN PRN Reason: gas - Labs Labs: 07/17/16 04:40 07/17/16 04:40 - Constitutional Appears: No Acute Distress - Head Exam Head Exam: NORMOCEPHALIC - Eye Exam Eye Exam: Normal appearance - ENT Exam ENT Exam: Mucous Membranes Moist - Respiratory Exam Respiratory Exam: NORMAL BREATHING PATTERN - Cardiovascular Exam Cardiovascular Exam: +S1, +S2 - GI/Abdominal Exam GI & Abdominal Exam: Soft, Tenderness - Neurological Exam Neurological Exam: Alert, Awake, Oriented x3 - Psychiatric Exam Psychiatric exam: Normal Mood - Skin Skin Exam: Dry, Intact, Warm Assessment and Plan - Assessment and Plan (Free Text) Assessment: 86F w/ abdominal pain -WBC improved -LFTs trending down -Lipase levels improving -Patient is a poor surgical candidate, no plan for surgical intervention. If lipase levels/LFTs worsen, cholecystostomy tube placement recommended. -D/w Dr. Judge <Moe Judge - Last Filed: 07/19/16 21:27> Objective - Vital Signs/Intake and Output Vital Signs (last 24 hours): Temp Pulse Resp BP Pulse Ox 98.5 F 81 20 164/65 H 93 L 07/19/16 16:18 07/19/16 16:18 07/19/16 16:18 07/19/16 16:18 07/19/16 16:18 - Medications Medications: Current Medications Albuterol/Ipratropium (Duoneb 3 Mg/0.5 Mg (3 Ml) Ud) 3 ml IH Q8H PRN PRN Reason: wheezing/shortness of breath Amlodipine Besylate (Norvasc) 10 mg PO DAILY [facility] Last Admin: 07/19/16 09:50 Dose: 10 mg Aspirin (Aspirin Chewable) 81 mg PO DAILY [facility] Last Admin: 07/19/16 09:48 Dose: 81 mg Bisacodyl (Dulcolax) 10 mg MD DAILY PRN PRN Reason: Constipation Calcium/Vitamin D (Oyster Shell Calcium/Vitamin D 500 Mg-200 Iu) 1 tab PO DAILY [facility] Last Admin: 07/19/16 09:50 Dose: 1 tab Docusate Sodium (Colace) 100 mg PO BID [facility] Last Admin: 07/19/16 16:31 Dose: 100 mg Ferrous Sulfate (Feosol) 325 mg PO BID [facility] Last Admin: 07/19/16 16:31 Dose: 325 mg Home Med (Difluprednate [Durezol]) 1 drop LEFTEYE BID [facility] Metronidazole (Flagyl 500mg/100ml Ns) 100 mls @ 100 mls/hr IVPB Q8 [facility] Last Admin: 07/19/16 16:26 Dose: 100 mls/hr Meropenem 1 gm/ Sodium (Chloride) 100 mls @ 100 mls/hr IVPB Q8 [facility] Last Admin: 07/19/16 17:33 Dose: 100 mls/hr Ketorolac Tromethamine (Toradol) 15 mg IVP Q6 PRN PRN Reason: pain 4-10 Last Admin: 07/14/16 18:27 Dose: 15 mg Lactobacillus Acidophilus (Bacid Acidophilus) 1 cap PO BID [facility] Last Admin: 07/19/16 16:31 Dose: 1 cap Lisinopril (Zestril) 20 mg PO DAILY [facility] Last Admin: 07/19/16 09:50 Dose: 20 mg Magnesium Hydroxide (Milk Of Magnesia) 30 ml PO HS PRN PRN Reason: Constipation Last Admin: 07/18/16 09:57 Dose: 30 ml Multivitamins/Minerals (Therapeutic-M Tab) 1 tab PO DAILY [facility] Last Admin: 07/19/16 09:50 Dose: 1 tab Ondansetron HCl (Zofran Inj) 4 mg IVP Q6 PRN PRN Reason: Nausea/Vomiting Last Admin: 07/19/16 16:41 Dose: 4 mg Pantoprazole Sodium (Protonix Ec Tab) 40 mg PO DAILY [facility] Simethicone (Mylicon Chew Tab) 160 mg PO BID PRN PRN Reason: gas - Labs Labs: 07/19/16 10:30 07/19/16 10:30 Attending/Attestation - Attestation I have personally seen and examined this patient.: Yes I have fully participated in the care of the patient.: Yes I have reviewed all pertinent clinical information, including history, physical exam and plan: Yes Notes (Text): 07/19/16 21:26 Pt was seen and examined at bedside on 07/17/16 Agree with above note and assessment F/u as out pt Plan d/w pt and primary team in detail.
--- NOTE | 2016-07-17 17:13 | CP.PCM.PN ---
Subjective - Date & Time of Evaluation Date of Evaluation: 07/17/16 Time of Evaluation: 10:00 - Subjective Subjective: Patient was seen and examined bedside today. Feeling better. Denies any abdominal pain , nausea or vomiting today. With episodes of emesis yesterday with liquids , but able to tolerate today. Hemodynamically stable, afebrile. No acute issues overnight LFT-s trending down. Objective - Vital Signs/Intake and Output Vital Signs (last 24 hours): Temp Pulse Resp BP Pulse Ox 98.0 F 80 20 167/72 H 99 07/17/16 15:42 07/17/16 15:42 07/17/16 15:42 07/17/16 15:42 07/17/16 15:42 - Medications Medications: Current Medications Albuterol/Ipratropium (Duoneb 3 Mg/0.5 Mg (3 Ml) Ud) 3 ml IH Q8H PRN PRN Reason: wheezing/shortness of breath Amlodipine Besylate (Norvasc) 10 mg PO DAILY [facility] Aspirin (Aspirin Chewable) 81 mg PO DAILY [facility] Last Admin: 07/15/16 10:50 Dose: Not Given Atorvastatin Calcium (Lipitor) 10 mg PO HS [facility] Last Admin: 07/16/16 23:29 Dose: Not Given Bisacodyl (Dulcolax) 10 mg [place] DAILY PRN PRN Reason: Constipation Calcium/Vitamin D (Oyster Shell Calcium/Vitamin D 500 Mg-200 Iu) 1 tab PO DAILY [facility] Last Admin: 07/15/16 09:00 Dose: Not Given Docusate Sodium (Colace) 100 mg PO BID [facility] Last Admin: 07/15/16 10:51 Dose: Not Given Ferrous Sulfate (Feosol) 325 mg PO BID [facility] Last Admin: 07/15/16 10:26 Dose: 325 mg Home Med (Difluprednate [Durezol]) 1 drop LEFTEYE BID [facility] Metronidazole (Flagyl 500mg/100ml Ns) 100 mls @ 100 mls/hr IVPB Q8 [facility] Last Admin: 07/17/16 09:04 Dose: 100 mls/hr Meropenem 1 gm/ Sodium (Chloride) 50 mls @ 50 mls/hr IVPB Q8 [facility] Ketorolac Tromethamine (Toradol) 15 mg IVP Q6 PRN PRN Reason: pain 4-10 Last Admin: 07/14/16 18:27 Dose: 15 mg Lisinopril (Zestril) 20 mg PO DAILY [facility] Last Admin: 07/15/16 10:49 Dose: Not Given Magnesium Hydroxide (Milk Of Magnesia) 30 ml PO HS PRN PRN Reason: Constipation Multivitamins/Minerals (Therapeutic-M Tab) 1 tab PO DAILY [facility] Last Admin: 07/15/16 10:48 Dose: Not Given Ondansetron HCl (Zofran Inj) 4 mg IVP Q6 PRN PRN Reason: Nausea/Vomiting Simethicone (Mylicon Chew Tab) 160 mg PO BID PRN PRN Reason: gas - Labs Labs: 07/17/16 04:40 07/17/16 04:40 - Constitutional Appears: Non-toxic, No Acute Distress - Head Exam Head Exam: ATRAUMATIC, NORMAL INSPECTION, NORMOCEPHALIC - Eye Exam Eye Exam: EOMI, Normal appearance, PERRL Pupil Exam: NORMAL ACCOMODATION - ENT Exam ENT Exam: Mucous Membranes Moist, Normal Exam - Neck Exam Neck Exam: Full ROM, Normal Inspection - Respiratory Exam Respiratory Exam: Clear to Ausculation Bilateral, NORMAL BREATHING PATTERN. absent: Rales, Rhonchi, Wheezes - Cardiovascular Exam Cardiovascular Exam: REGULAR RHYTHM, RRR, +S1, +S2. absent: JVD - GI/Abdominal Exam GI & Abdominal Exam: Soft, Normal Bowel Sounds. absent: Distended, Guarding, Tenderness, Rebound - Rectal Exam Rectal Exam: Deferred - Extremities Exam Extremities Exam: Full ROM, Normal Capillary Refill, Normal Inspection. absent : Calf Tenderness, Pedal Edema - Back Exam Back Exam: NORMAL INSPECTION - Neurological Exam Neurological Exam: Alert, Awake, CN II-XII Intact, Oriented x3 - Psychiatric Exam Psychiatric exam: Normal Affect, Normal Mood - Skin Skin Exam: Dry, Intact, Normal Color, Warm Assessment and Plan - Assessment and Plan (Free Text) Assessment: 86 year old female with PMH HTN, arthritis, respiratory failure, CVA, presented on 07/14/16 s/p fall from [place] . CT Head and CT Pelvis were negative. CT Abdomen/Pelvis 07/14/16 showed evidence of gallstones and findings concerning for cholecystitis. Blood tests showed Lipase 10 K .MRCP 07/14/16 also showed gallstones with evidence of cholecystitis with visualized portion of CBD appearing normal in caliber without filling defects and evidence of pancreatitis. Surgery Dr. Claros recommended GI evaluation for possible ERCP. GI Dr. Diehl did not recommend ERCP due to the results of the MRCP.As per surgery patient is a poor surgical candidate and recommended IV antibiotics and if conditions worsen either Cholecystostomy or Percutaneous Transhepatic Cholangiography Tube placement . At present patient clinically improving , LFT-s , lipase trending down, tolerating clear liquids and abdominal pain resolved . On meropenem and Flagyl IV as per Id for gram negative Bacteremia ( E.coli positive) and UTI 1. Sepsis with gram negative bacteremia secondary to acute cholecystitis, Gallstone Pancreatitis and UTI improving, hemodynamically stable, afebrile blood cx and urine cx positive for E. Coli GI, surgery and IdD consulted patient is poor surgical candidate continue IV meropenem and Flagyl for total 14-21 days as per ID echo showed no vegetations 2. Gallstone Pancreatitis improving tolerating liquid diet today lipase and LFT-s trending down, WBC-normalized MRCP showed no CBD filling defect so no ERCP is needed as per GI Cpontinue current management with IV antibiotics, pain mangement, IVF Advance diet slowly as tolerated 3. Acute Cholecystitis/Choledocholithiasis Continue medical management as above no ERCP needed not a surgical candidate 4. Fall CT head and Pelvis both neg fall precautions Patient no ambulatory in [place], goes around with wheelchair 5. UTI Urine cs positive for E.Coli Continue Meropenem and Flagyl 6.Hx CVA Will resume Asa 81 mg po daily and Atorvastatin 10 mg po HS when able to take PO 7. Hypertension Restart her home medications nOrvasc and Lisinopril today HCTZ on hold 8. Anemia of chronic disease on Ferrous sulfate Po in [place] Resume once able to take PO Hgb8.6 9. Arthritis Toradol 15 mg IV Q6H PRN Pain 10. 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 Thrombocytopenia unclear etiology continue to monitor 12.DVT ppx Hold lovenox due to anemia and thrombocytopenia SCD POA ; Niece Code status DNR
[2016-07-18] MEDS: metroNIDAZOLE 500mg/100ml NS 100 ML IVPB SCH ×3 (00:52→16:00)
[2016-07-18 06:37] LABS: ALKALINE PHOSPHATASE 177 U/L (38-126); ALT/SGPT 115 U/L (9-52); AST/SGOT 39 U/L (14-36); BILIRUBIN,TOTAL 0.4 mg/dl (0.2-1.3); BLOOD UREA NITROGEN 11 mg/dl (7-17); CALCIUM 7.9 mg/dL (8.4-10.2); CARBON DIOXIDE 23 mmol/L (22-30); CHLORIDE 110 mmol/L (98-107); GFR AFRICAN-AMERICAN > 60; GLUCOSE,RANDOM 79 mg/dL (65-105); LIPASE 276 U/L (23-300); POTASSIUM 3.4 MMOL/L (3.6-5.0); SODIUM 141 mmol/l (132-148); TOTAL PROTEIN 5.6 G/DL (6.3-8.2)
[2016-07-18 06:44] LABS: HEMATOCRIT 28.1 % (34.0-47.0); MEAN CELL VOLUME 88.2 fl (81.0-99.0); MEAN CORPUSCULAR HEMOGLOBIN 29.7 pg (27.0-31.0); MEAN CORPUSCULAR HGB CONC 33.7 g/dL (33.0-37.0)
[2016-07-18] MEDS ORDERED: Potassium Chloride 20 mEq/15 ml LIQ UD PO ONE (07:46)
--- NOTE | 2016-07-18 13:46 | CP.PCM.PN ---
Subjective - Date & Time of Evaluation Date of Evaluation: 07/18/16 Time of Evaluation: 13:46 - Subjective Subjective: ID Note- Pt. seen and examined today. Pt. sitting up in bed and eating solid food today with the help of her niece. denies any nausea today and no emesis today. denies any chills . is in good spirits. Objective - Vital Signs/Intake and Output Vital Signs (last 24 hours): Temp Pulse Resp BP Pulse Ox 98.1 F 79 18 150/68 97 07/18/16 12:32 07/18/16 12:32 07/18/16 12:32 07/18/16 12:32 07/18/16 12:32 - Medications Medications: Current Medications Albuterol/Ipratropium (Duoneb 3 Mg/0.5 Mg (3 Ml) Ud) 3 ml IH Q8H PRN PRN Reason: wheezing/shortness of breath Amlodipine Besylate (Norvasc) 10 mg PO DAILY [facility] Last Admin: 07/18/16 09:47 Dose: 10 mg Aspirin (Aspirin Chewable) 81 mg PO DAILY [facility] Last Admin: 07/15/16 10:50 Dose: Not Given Atorvastatin Calcium (Lipitor) 10 mg PO HS [facility] Last Admin: 07/17/16 21:20 Dose: 10 mg Bisacodyl (Dulcolax) 10 mg [place] DAILY PRN PRN Reason: Constipation Calcium/Vitamin D (Oyster Shell Calcium/Vitamin D 500 Mg-200 Iu) 1 tab PO DAILY [facility] Last Admin: 07/15/16 09:00 Dose: Not Given Docusate Sodium (Colace) 100 mg PO BID [facility] Last Admin: 07/15/16 10:51 Dose: Not Given Ferrous Sulfate (Feosol) 325 mg PO BID [facility] Last Admin: 07/15/16 10:26 Dose: 325 mg Home Med (Difluprednate [Durezol]) 1 drop LEFTEYE BID [facility] Metronidazole (Flagyl 500mg/100ml Ns) 100 mls @ 100 mls/hr IVPB Q8 [facility] Last Admin: 07/18/16 09:45 Dose: 100 mls/hr Meropenem 1 gm/ Sodium (Chloride) 100 mls @ 100 mls/hr IVPB Q8 [facility] Ketorolac Tromethamine (Toradol) 15 mg IVP Q6 PRN PRN Reason: pain 4-10 Last Admin: 07/14/16 18:27 Dose: 15 mg Lisinopril (Zestril) 20 mg PO DAILY [facility] Last Admin: 07/18/16 09:47 Dose: 20 mg Magnesium Hydroxide (Milk Of Magnesia) 30 ml PO HS PRN PRN Reason: Constipation Last Admin: 07/18/16 09:57 Dose: 30 ml Multivitamins/Minerals (Therapeutic-M Tab) 1 tab PO DAILY [facility] Last Admin: 07/15/16 10:48 Dose: Not Given Ondansetron HCl (Zofran Inj) 4 mg IVP Q6 PRN PRN Reason: Nausea/Vomiting Last Admin: 07/18/16 09:48 Dose: 4 mg Simethicone (Mylicon Chew Tab) 160 mg PO BID PRN PRN Reason: gas - Labs Labs: - Additional Findings Additional findings: - Constitutional Appears: No Acute Distress - Head Exam Head Exam: ATRAUMATIC - Eye Exam Eye Exam: EOMI, PERRL - ENT Exam ENT Exam: Normal Oropharynx - Neck Exam Neck exam: Positive for: Full Rom - Respiratory Exam Respiratory Exam: NORMAL BREATHING PATTERN Additional comments: does have some crackles at bases no wheezing - Cardiovascular Exam Cardiovascular Exam: RRR, +S1, +S2 - GI/Abdominal Exam Additional comments: slightly distendedbut much softer to touch, + ventral hernia, no tenderness to palpation + BS No guarding, no rebound - Extremities Exam Extremities exam: Positive for: normal inspection - Neurological Exam Neurological exam: Alert, Oriented x 3 Laboratory Results - last 72 hr 07/16/16 07/17/16 07/18/16 10:30 04:40 06:02 WBC 10.9 H 7.3 5.0 RBC 2.96 L 2.90 L 3.18 L Hgb 8.7 L 8.6 L 9.5 L Hct 26.5 L 25.8 L 28.1 L MCV 89.7 88.9 88.2 MCH 29.5 29.8 29.7 MCHC 32.9 L 33.5 33.7 RDW 14.4 14.1 14.0 Plt Count 87 L 86 L 96 L MPV 10.5 10.5 Neut % (Auto) 90.5 H 86.4 H Lymph % (Auto) 4.9 L 6.8 L [place] % (Auto) 4.0 6.0 Eos % (Auto) 0.4 0.5 Baso % (Auto) 0.2 0.3 Neut # 9.9 H 6.3 Lymph # 0.5 L 0.5 L [place] # 0.4 0.4 Eos # 0.0 0.0 Baso # 0.0 0.0 Neutrophils % (Manual) 90 H Lymphocytes % (Manual) 4 L Monocytes % (Manual) 4 Eosinophils % (Manual) 2 Platelet Estimate Normal RBC Morphology Normal Sodium 145 143 141 Potassium 3.4 L 3.7 3.4 L Chloride 111 H 111 H 110 H Carbon Dioxide 24 27 23 Anion Gap 13 9 L 11 BUN 17 12 11 Creatinine 1.0 0.8 0.6 L Est GFR ( Amer) > 60 > 60 > 60 Est GFR (Non-Af Amer) 52 > 60 > 60 Random Glucose 155 H 81 79 Calcium 7.7 L 8.0 L 7.9 L Total Bilirubin 0.7 0.6 0.4 AST 124 H D 69 H D 39 H D ALT 217 H D 159 H D 115 H D Alkaline Phosphatase 174 H D 183 H 177 H Total Protein 5.7 L 5.6 L 5.6 L Albumin 2.8 L 2.8 L 2.8 L Globulin 2.8 2.8 2.8 Albumin/Globulin Ratio 1.0 1.0 1.0 Lipase 604 H 404 H 276 Microbiology 07/16/16 16:30 Blood-Venous Blood Culture - Preliminary NO GROWTH AFTER 24 HOURS 07/16/16 16:00 Blood-Venous Blood Culture - Preliminary NO GROWTH AFTER 24 HOURS 07/14/16 11:41 Blood Blood Culture - Final Escherichia Coli 07/14/16 11:41 Blood Gram Stain - Final 07/14/16 11:08 Blood-Venous Blood Culture - Final Escherichia Coli 07/14/16 11:08 Blood-Venous Gram Stain - Final 07/14/16 08:11 Urine,Catheterized Urine Culture - Final Escherichia Coli Assessment and Plan (1) Gallstone pancreatitis Status: Acute (2) Sepsis Status: Acute (3) UTI (urinary tract infection) Status: Acute - Assessment and Plan (Free Text) Assessment: A/P- 86 y/o female s/p fall found to have gallstone pancreatitis, UTI and GNR bacteremia. source of gram negative bacteremia most likely from the untreated UTI, however, biliary origin is also possiblein light of acute gallstoen pancreatitis. NO CBD obstruction as per abd US and Ct reports. clinically much better. remains afebrile. Leukocytosis resolved. LFTs are trending down. lipase now normal level. blood cx- e.coli not ESBL x 2 Urine cx- E,COli not ESBL repeat blood cx- neg x 2 echo- no vegetations as per report. plan- advise to continue with IV meropenem day #3 for e.coli bacteremia. meropenem dose could be reduced to [id number]. continue with flagyl as well for the gallstone pancreatitis. can be switched to oral flagyl for another 10 days. would need total of 14-21 days of IV abx for GNR bacteremia ( could be completed at [place] if patient feels better and can tolerate food). All above d/w patient and her niece at length and they verbalzies full understanding of all above.
--- NOTE | 2016-07-18 14:10 | CP.PCM.PN ---
Subjective - Date & Time of Evaluation Date of Evaluation: 07/18/16 Time of Evaluation: 09:00 - Subjective Subjective: Niece at bedside, discussed treatment test results and treatment plan Pt has sl nausea tolerated clear liquid diet- discussed that will upgrade diet to Blnd diet if pt continues to tolerate diet No fever abd pain minimal no CP no SOB accd to niece , pt is mostly bed bound , ambulates with a wheelchair at [facility] Objective - Vital Signs/Intake and Output Vital Signs (last 24 hours): Temp Pulse Resp BP Pulse Ox 98.1 F 79 18 150/68 97 07/18/16 12:32 07/18/16 12:32 07/18/16 12:32 07/18/16 12:32 07/18/16 12:32 - Medications Medications: Current Medications Albuterol/Ipratropium (Duoneb 3 Mg/0.5 Mg (3 Ml) Ud) 3 ml IH Q8H PRN PRN Reason: wheezing/shortness of breath Amlodipine Besylate (Norvasc) 10 mg PO DAILY [facility] Last Admin: 07/18/16 09:47 Dose: 10 mg Aspirin (Aspirin Chewable) 81 mg PO DAILY [facility] Last Admin: 07/15/16 10:50 Dose: Not Given Atorvastatin Calcium (Lipitor) 10 mg PO HS [facility] Last Admin: 07/17/16 21:20 Dose: 10 mg Bisacodyl (Dulcolax) 10 mg [place] DAILY PRN PRN Reason: Constipation Calcium/Vitamin D (Oyster Shell Calcium/Vitamin D 500 Mg-200 Iu) 1 tab PO DAILY [facility] Last Admin: 07/15/16 09:00 Dose: Not Given Docusate Sodium (Colace) 100 mg PO BID [facility] Last Admin: 07/15/16 10:51 Dose: Not Given Ferrous Sulfate (Feosol) 325 mg PO BID [facility] Last Admin: 07/15/16 10:26 Dose: 325 mg Home Med (Difluprednate [Durezol]) 1 drop LEFTEYE BID [facility] Metronidazole (Flagyl 500mg/100ml Ns) 100 mls @ 100 mls/hr IVPB Q8 [facility] Last Admin: 07/18/16 09:45 Dose: 100 mls/hr Meropenem 1 gm/ Sodium (Chloride) 100 mls @ 100 mls/hr IVPB Q8 [facility] Ketorolac Tromethamine (Toradol) 15 mg IVP Q6 PRN PRN Reason: pain 4-10 Last Admin: 07/14/16 18:27 Dose: 15 mg Lisinopril (Zestril) 20 mg PO DAILY [facility] Last Admin: 07/18/16 09:47 Dose: 20 mg Magnesium Hydroxide (Milk Of Magnesia) 30 ml PO HS PRN PRN Reason: Constipation Last Admin: 07/18/16 09:57 Dose: 30 ml Multivitamins/Minerals (Therapeutic-M Tab) 1 tab PO DAILY [facility] Last Admin: 07/15/16 10:48 Dose: Not Given Ondansetron HCl (Zofran Inj) 4 mg IVP Q6 PRN PRN Reason: Nausea/Vomiting Last Admin: 07/18/16 09:48 Dose: 4 mg Simethicone (Mylicon Chew Tab) 160 mg PO BID PRN PRN Reason: gas - Labs Labs: 07/18/16 06:02 07/18/16 06:02 - Constitutional Appears: Non-toxic, No Acute Distress - Head Exam Head Exam: ATRAUMATIC, NORMAL INSPECTION, NORMOCEPHALIC - Eye Exam Eye Exam: EOMI, Normal appearance, PERRL Pupil Exam: NORMAL ACCOMODATION - ENT Exam ENT Exam: Mucous Membranes Moist, Normal Exam - Neck Exam Neck Exam: Full ROM, Normal Inspection - Respiratory Exam Respiratory Exam: Clear to Ausculation Bilateral, NORMAL BREATHING PATTERN. absent: Rales, Rhonchi, Wheezes - Cardiovascular Exam Cardiovascular Exam: REGULAR RHYTHM, RRR, +S1, +S2. absent: JVD - GI/Abdominal Exam GI & Abdominal Exam: Soft, Normal Bowel Sounds, mild epigastric tenderness absent: Distended, Guarding, Rebound - Rectal Exam Rectal Exam: Deferred - Extremities Exam Extremities Exam: Full ROM, Normal Capillary Refill, Normal Inspection. absent : Calf Tenderness, Pedal Edema - Back Exam Back Exam: NORMAL INSPECTION - Neurological Exam Neurological Exam: Alert, Awake, CN II-XII Intact, Oriented x3 - Psychiatric Exam Psychiatric exam: Normal Affect, Normal Mood - Skin Skin Exam: Dry, Intact, Normal Color, Warm Assessment and Plan (1) Sepsis Status: Acute (2) Gallstone pancreatitis Status: Acute (3) Acute cholecystitis Status: Acute (4) UTI (urinary tract infection) Status: Acute (5) Anemia Status: Chronic (6) DVT prophylaxis Status: Acute - Assessment and Plan (Free Text) Assessment: 86 year old female with PMH HTN, arthritis, respiratory failure, CVA, presented [place] 07/14/[place] . CT Head and CT Pelvis were negative. CT Abdomen/Pelvis 07/14/16 showed evidence of gallstones and findings concerning for cholecystitis. Blood tests showed Lipase 10K . MRCP 07/14/16 also showed gallstones with evidence of cholecystitis with visualized portion of CBD appearing normal in caliber without filling defects and evidence of pancreatitis. Surgery Dr. Claros recommended GI evaluation for possible ERCP. GI Dr. Diehl did not recommend ERCP due to the results of the MRCP. As per surgery patient is a poor surgical candidate and recommended IV antibiotics and if conditions worsen either Cholecystostomy or Percutaneous Transhepatic Cholangiography Tube placement . At present patient clinically improving , LFT-s , lipase trending down, tolerating clear liquids and abdominal pain resolved . On Meropenem and Flagyl IV as per ID for E.coli Bacteremia and UTI 1. Sepsis with gram negative bacteremia ( E coli) secondary to acute cholecystitis, Gallstone Pancreatitis and UTI improving, hemodynamically stable, afebrile blood cx and urine cx positive for E. Coli GI, surgery and IdD consulted patient is poor surgical candidate continue IV meropenem and Flagyl for total 14-21 days as per ID echo showed no vegetations 2. Gallstone Pancreatitis improving tolerating liquid diet lipase and LFT-s trending down, WBC-normalized MRCP showed no CBD filling defect so no ERCP is needed as per GI Continue current management with IV antibiotics, pain management, IVF Advance diet slowly as tolerated 3. Acute Cholecystitis/Choledocholithiasis Continue medical management as above no ERCP needed not a surgical candidate 4. Fall CT head and Pelvis both neg fall precautions Patient not ambulatory in [place], goes around with wheelchair 5. UTI Urine cs positive for E.Coli Continue Meropenem 6.Hx CVA resume Asa 81 mg po daily Hold Atorvastatin bec of abn LFT 7. Hypertension Restart her home medications nOrvasc and Lisinopril HCTZ on hold 8. Anemia of chronic disease resume Ferrous sulfate Hgb8.6 9. Arthritis Toradol 15 mg IV Q6H PRN Pain 10. 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 Thrombocytopenia likely due to liver dis continue to monitor 12.DVT ppx Hold lovenox due to anemia and thrombocytopenia SCD POA ; Niece Code status DNR
[2016-07-18] MEDS: Meropenem 1 GM in Sodium Chloride 0.9% 100 ML IVPB SCH ×2 (17:11→18:00)
[2016-07-19] MEDS: metroNIDAZOLE 500mg/100ml NS 100 ML IVPB SCH ×3 (00:25→16:26)
[2016-07-19] MEDS: Meropenem 1 GM in Sodium Chloride 0.9% 100 ML IVPB SCH ×3 (01:32→17:33)
[2016-07-19] MEDS: Calcium-Vit D 500 mg-200 Units Tab UD PO SCH (09:50)
[2016-07-19] MEDS: Multivitamin With Minerals Tab PO SCH (09:50)
--- NOTE | 2016-07-19 10:21 | CP.PCM.PN ---
Subjective - Date & Time of Evaluation Date of Evaluation: 07/19/16 Time of Evaluation: 10:15 - Subjective Subjective: No fever tolerated liquid diet- now on [place] diet still with some epigastric tenderness Plan for d/c in am to [place] - will need IV abx in NH rpt blood c/s : negative no CP no SOB Objective - Vital Signs/Intake and Output Vital Signs (last 24 hours): Temp Pulse Resp BP Pulse Ox 98.7 F 79 20 153/60 H 96 07/19/16 09:19 07/19/16 09:50 07/19/16 09:19 07/19/16 09:50 07/19/16 09:19 - Medications Medications: Current Medications Albuterol/Ipratropium (Duoneb 3 Mg/0.5 Mg (3 Ml) Ud) 3 ml IH Q8H PRN PRN Reason: wheezing/shortness of breath Amlodipine Besylate (Norvasc) 10 mg PO DAILY [facility] Last Admin: 07/19/16 09:50 Dose: 10 mg Aspirin (Aspirin Chewable) 81 mg PO DAILY [facility] Last Admin: 07/19/16 09:48 Dose: 81 mg Bisacodyl (Dulcolax) 10 mg [place] DAILY PRN PRN Reason: Constipation Calcium/Vitamin D (Oyster Shell Calcium/Vitamin D 500 Mg-200 Iu) 1 tab PO DAILY [facility] Last Admin: 07/19/16 09:50 Dose: 1 tab Docusate Sodium (Colace) 100 mg PO BID [facility] Last Admin: 07/19/16 09:49 Dose: 100 mg Ferrous Sulfate (Feosol) 325 mg PO BID [facility] Last Admin: 07/19/16 09:49 Dose: 325 mg Home Med (Difluprednate [Durezol]) 1 drop LEFTEYE BID [facility] Metronidazole (Flagyl 500mg/100ml Ns) 100 mls @ 100 mls/hr IVPB Q8 [facility] Last Admin: 07/19/16 08:45 Dose: 100 mls/hr Meropenem 1 gm/ Sodium (Chloride) 100 mls @ 100 mls/hr IVPB Q8 [facility] Last Admin: 07/19/16 09:47 Dose: 100 mls/hr Ketorolac Tromethamine (Toradol) 15 mg IVP Q6 PRN PRN Reason: pain 4-10 Last Admin: 07/14/16 18:27 Dose: 15 mg Lisinopril (Zestril) 20 mg PO DAILY [facility] Last Admin: 07/19/16 09:50 Dose: 20 mg Magnesium Hydroxide (Milk Of Magnesia) 30 ml PO HS PRN PRN Reason: Constipation Last Admin: 07/18/16 09:57 Dose: 30 ml Multivitamins/Minerals (Therapeutic-M Tab) 1 tab PO DAILY [facility] Last Admin: 07/19/16 09:50 Dose: 1 tab Ondansetron HCl (Zofran Inj) 4 mg IVP Q6 PRN PRN Reason: Nausea/Vomiting Last Admin: 07/18/16 09:48 Dose: 4 mg Simethicone (Mylicon Chew Tab) 160 mg PO BID PRN PRN Reason: gas - Labs Labs: 07/18/16 06:02 07/18/16 06:02 - Constitutional Appears: Non-toxic, No Acute Distress - Head Exam Head Exam: ATRAUMATIC, NORMAL INSPECTION, NORMOCEPHALIC - Eye Exam Eye Exam: EOMI, Normal appearance, PERRL Pupil Exam: NORMAL ACCOMODATION - ENT Exam ENT Exam: Mucous Membranes Moist, Normal Exam - Neck Exam Neck Exam: Full ROM, Normal Inspection - Respiratory Exam Respiratory Exam: Clear to Ausculation Bilateral, NORMAL BREATHING PATTERN. absent: Rales, Rhonchi, Wheezes - Cardiovascular Exam Cardiovascular Exam: REGULAR RHYTHM, RRR, +S1, +S2. absent: JVD - GI/Abdominal Exam GI & Abdominal Exam: Soft, Normal Bowel Sounds, mild epigastric tenderness absent: Distended, Guarding, Rebound - Rectal Exam Rectal Exam: Deferred - Extremities Exam Extremities Exam: Full ROM, Normal Capillary Refill, Normal Inspection. absent : Calf Tenderness, Pedal Edema - Back Exam Back Exam: NORMAL INSPECTION - Neurological Exam Neurological Exam: Alert, Awake, CN II-XII Intact, Oriented x3 - Psychiatric Exam Psychiatric exam: Normal Affect, Normal Mood - Skin Skin Exam: Dry, Intact, Normal Color, Warm Assessment and Plan (1) Sepsis Status: Acute (2) Gallstone pancreatitis Status: Acute (3) Acute cholecystitis Status: Acute (4) UTI (urinary tract infection) Status: Acute (5) Anemia Status: Chronic (6) DVT prophylaxis Status: Acute - Assessment and Plan (Free Text) Assessment: 86 year old female with PMH HTN, arthritis, respiratory failure, CVA, presented on 07/14/16 s/p fall from [place] . CT Head and CT Pelvis were negative. CT Abdomen/Pelvis 07/14/16 showed evidence of gallstones and findings concerning for cholecystitis. Blood tests showed Lipase 10K . MRCP 07/14/16 also showed gallstones with evidence of cholecystitis with visualized portion of CBD appearing normal in caliber without filling defects and evidence of pancreatitis. Surgery Dr. Claros recommended GI evaluation for possible ERCP. GI Dr. Diehl did not recommend ERCP due to the results of the MRCP. As per surgery patient is a poor surgical candidate and recommended IV antibiotics and if conditions worsen either Cholecystostomy or Percutaneous Transhepatic Cholangiography Tube placement . At present patient clinically improving , LFT-s , lipase trending down, tolerating clear liquids and abdominal pain resolved . On Meropenem and Flagyl IV as per ID for E.coli Bacteremia and UTI 1. Sepsis with gram negative bacteremia ( E coli) secondary to acute cholecystitis, Gallstone Pancreatitis and UTI improving, hemodynamically stable, afebrile blood cx and urine cx positive for E. Coli GI, surgery and IdD consulted patient is poor surgical candidate continue IV meropenem and Flagyl for total 14-21 days as per ID echo showed no vegetations Will d/c pt in am back to OR , SW to arrange for IV abx treatment in OR 2. Gallstone Pancreatitis improving lipase now normal, LFT-s trending down, WBC-normalized MRCP showed no CBD filling defect so no ERCP is needed as per GI Continue current management with IV antibiotics, pain management, IVF Advance diet slowly as tolerated - tolerated liquid diet - adavanced to [place] dit 3. Acute Cholecystitis/Choledocholithiasis Continue medical management as above no ERCP needed not a surgical candidate 4. Fall CT head and Pelvis both neg fall precautions Patient not ambulatory in OR, goes around with wheelchair 5. UTI Urine cs positive for E.Coli Continue Meropenem 6.Hx CVA resume Asa 81 mg po daily Hold Atorvastatin bec of abn LFT 7. Hypertension Restart her home medications nOrvasc and Lisinopril HCTZ on hold 8. Anemia of chronic disease resume Ferrous sulfate Hgb8.6 9. Arthritis Toradol 15 mg IV Q6H PRN Pain 10. 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 Thrombocytopenia likely due to liver dis continue to monitor 12.DVT ppx Hold lovenox due to anemia and thrombocytopenia SCD
[2016-07-19 11:16] LABS: ALKALINE PHOSPHATASE 159 U/L (38-126); ALT/SGPT 96 U/L (9-52); AST/SGOT 27 U/L (14-36); BASO % 0.2 % (0.0-2.0); BILIRUBIN,TOTAL 0.4 mg/dl (0.2-1.3); BLOOD UREA NITROGEN 9 mg/dl (7-17); CALCIUM 8.2 mg/dL (8.4-10.2); CARBON DIOXIDE 30 mmol/L (22-30); CHLORIDE 103 mmol/L (98-107); EOS % 0.6 % (0.0-4.0); GFR AFRICAN-AMERICAN > 60; GLUCOSE,RANDOM 141 mg/dL (65-105); HEMATOCRIT 28.3 % (34.0-47.0); LYMPH # 0.8 K/uL (1.0-4.3); LYMPH % 19.5 % (20.0-40.0); MEAN CORPUSCULAR HEMOGLOBIN 29.9 pg (27.0-31.0); MEAN CORPUSCULAR HGB CONC 34.3 g/dL (33.0-37.0); MEAN PLATELET VOLUME 9.4 fl (7.2-11.7); MONO # 0.5 K/uL (0.0-0.8); MONO % 12.5 % (0.0-10.0); NEUT # 2.7 K/uL (1.8-7.0); NEUT % 67.2 % (50.0-75.0); POTASSIUM 3.2 MMOL/L (3.6-5.0); RED CELL DISTRIBUTION WIDTH 14.1 % (11.5-14.5); SODIUM 139 mmol/l (132-148); TOTAL PROTEIN 5.7 G/DL (6.3-8.2); WHITE BLOOD COUNT 4.1 K/uL (4.8-10.8)
[2016-07-19] MEDS ORDERED: Potassium Chloride 40 mEq/30 ml LIQ UD PO ONE (15:43)
[2016-07-19] MEDS ORDERED: Anusol Suppository PR PRN (15:44)
[2016-07-19] MEDS ORDERED: Potassium Chloride 20 mEq/15 ml LIQ UD PO ONE (16:00)
[2016-07-19] MEDS: Lactobacillus Acidophilus 500 MU Cap PO SCH (16:31)
[2016-07-19] MEDS ORDERED: Sucralfate 1 gm/10 ml Oral Susp UD PO ONE (16:51)
[2016-07-20] MEDS: Meropenem 1 GM in Sodium Chloride 0.9% 100 ML IVPB SCH ×3 (00:30→16:37)
[2016-07-20] MEDS: metroNIDAZOLE 500mg/100ml NS 100 ML IVPB SCH ×3 (01:21→16:23)
[2016-07-20 07:42] LABS: PARTIAL THROMBOPLASTIN TIME 27.5 SECONDS (23.3-32.5)
[2016-07-20 07:43] LABS: ALKALINE PHOSPHATASE 143 U/L (38-126); ALT/SGPT 76 U/L (9-52); AST/SGOT 30 U/L (14-36); BILIRUBIN,TOTAL 0.3 mg/dl (0.2-1.3); BLOOD UREA NITROGEN 12 mg/dl (7-17); CALCIUM 8.5 mg/dL (8.4-10.2); CARBON DIOXIDE 29 mmol/L (22-30); CHLORIDE 106 mmol/L (98-107); GFR AFRICAN-AMERICAN > 60; GLUCOSE,RANDOM 105 mg/dL (65-105); POTASSIUM 4.1 MMOL/L (3.6-5.0); SODIUM 146 mmol/l (132-148); TOTAL PROTEIN 5.5 G/DL (6.3-8.2)
[2016-07-20] MEDS: Lactobacillus Acidophilus 500 MU Cap PO SCH ×2 (09:00→16:35)
[2016-07-20] MEDS ORDERED: Pantoprazole 40 mg EC Tab PO SCH (09:00)
[2016-07-20] MEDS: Multivitamin With Minerals Tab PO SCH (09:36)
[2016-07-20] MEDS: Calcium-Vit D 500 mg-200 Units Tab UD PO SCH (09:37)
[2016-07-20 12:54] VITALS: RESP 20
[2016-07-20] MEDS ORDERED: Lidocaine 1% Inj (20ml) ONE (14:46)
--- NOTE | 2016-07-20 15:22 | CP.PCM.DIS ---
Provider - Provider Date of Admission: 07/14/16 11:38 Attending physician: Tiffanie Walsh DO Primary care physician: Justin Spain MD Consults: GI: Fazal ID: DR Langley Surgery: Dr Judge Cardio: Dr Ambrose Time Spent in preparation of Discharge (in minutes): 30 Diagnosis - Discharge Diagnosis (1) Sepsis Status: Acute (2) Gallstone pancreatitis Status: Acute (3) Acute cholecystitis Status: Acute (4) UTI (urinary tract infection) Status: Acute Priority: High (5) Anemia Status: Chronic Priority: High (6) DVT prophylaxis Status: Acute Priority: High (7) Thrombocytopenia Status: Chronic Priority: Medium Hospital Course - Lab Results Lab Results: Micro Results 07/16/16 16:30 Blood-Venous Blood Culture - Preliminary NO GROWTH AFTER 3 DAYS 07/16/16 16:00 Blood-Venous Blood Culture - Preliminary NO GROWTH AFTER 3 DAYS 07/17/16 15:24 Blood-Venous Blood Culture - Preliminary NO GROWTH AFTER 48 HOURS 07/14/16 11:41 Blood Blood Culture - Final Escherichia Coli 07/14/16 11:41 Blood Gram Stain - Final Most Recent Lab Values WBC 4.1 K/uL (4.8-10.8) L 07/19/16 10:30 RBC 3.25 Mil/uL (3.80-5.20) L 07/19/16 10:30 Hgb 9.7 g/dL (12.0-16.0) L 07/19/16 10:30 Hct 28.3 % (34.0-47.0) L 07/19/16 10:30 MCV 87.0 fl (81.0-99.0) 07/19/16 10:30 MCH 29.9 pg (27.0-31.0) 07/19/16 10:30 MCHC 34.3 g/dL (33.0-37.0) 07/19/16 10:30 RDW 14.1 % (11.5-14.5) 07/19/16 10:30 Plt Count 100 K/uL (130-400) L 07/19/16 10:30 MPV 9.4 fl (7.2-11.7) 07/19/16 10:30 Neut % (Auto) 67.2 % (50.0-75.0) 07/19/16 10:30 Lymph % (Auto) 19.5 % (20.0-40.0) L 07/19/16 10:30 [place] % (Auto) 12.5 % (0.0-10.0) H 07/19/16 10:30 Eos % (Auto) 0.6 % (0.0-4.0) 07/19/16 10:30 Baso % (Auto) 0.2 % (0.0-2.0) 07/19/16 10:30 Neut # 2.7 K/uL (1.8-7.0) 07/19/16 10:30 Lymph # 0.8 K/uL (1.0-4.3) L 07/19/16 10:30 [place] # 0.5 K/uL (0.0-0.8) 07/19/16 10:30 Eos # 0.0 K/uL (0.0-0.7) 07/19/16 10:30 Baso # 0.0 K/uL (0.0-0.2) 07/19/16 10:30 Neutrophils % (Manual) 90 % (42-75) H 07/16/16 10:30 Band Neutrophils % 3 % (0-2) H 07/14/16 07:24 Lymphocytes % (Manual) 4 % (20-50) L 07/16/16 10:30 Monocytes % (Manual) 4 % (0-10) 07/16/16 10:30 Eosinophils % (Manual) 2 % (0-7) 07/16/16 10:30 Toxic Granulation Present 07/14/16 07:24 Platelet Estimate Normal (NORMAL) 07/16/16 10:30 Large Platelets Present 07/14/16 07:24 Giant Platelets Present 07/14/16 07:24 RBC Morphology Normal (NORMAL) 07/16/16 10:30 Hypochromasia (manual) Slight 07/14/16 07:24 Ovalocytes Slight 07/14/16 07:24 PT 11.9 SECONDS (9.6-11.2) H 07/20/16 06:20 INR 1.14 (0.92-1.08) H 07/20/16 06:20 APTT 27.5 SECONDS (23.3-32.5) 07/20/16 06:20 pCO2 43 mm/Hg (35-45) 07/14/16 15:15 pO2 88 mm/Hg (80-100) 07/14/16 15:15 HCO3 27.8 mmol/L (21-28) 07/14/16 15:15 ABG pH 7.43 (7.35-7.45) 07/14/16 15:15 ABG Total CO2 29.8 mmol/L (22-28) H 07/14/16 15:15 ABG O2 Saturation 98.9 % (95-98) H 07/14/16 15:15 ABG Base Excess 3.7 mmol/L (-2.0-3.0) H 07/14/16 15:15 Neno Test Yes 07/14/16 15:15 ABG Potassium 3.4 mmol/L (3.6-5.2) L 07/14/16 15:15 A-a O2 Difference 58.0 mm/Hg 07/14/16 15:15 Sodium 128.0 mmol/L (132-148) L 07/14/16 15:15 Chloride 111.0 mmol/L (98-107) H 07/14/16 15:15 Glucose 161 mg/dL (65-105) H 07/14/16 15:15 Lactate 2.1 mmol/L (0.7-2.1) 07/14/16 15:15 Vent Mode Nc 07/14/16 11:40 FiO2 28.0 % 07/14/16 15:15 Sodium 146 mmol/l (132-148) 07/20/16 06:20 Potassium 4.1 MMOL/L (3.6-5.0) 07/20/16 06:20 Chloride 106 mmol/L (98-107) 07/20/16 06:20 Carbon Dioxide 29 mmol/L (22-30) 07/20/16 06:20 Anion Gap 15 (10-20) 07/20/16 06:20 BUN 12 mg/dl (7-17) 07/20/16 06:20 Creatinine 0.7 mg/dL (0.7-1.2) 07/20/16 06:20 Est GFR ( Amer) > 60 07/20/16 06:20 Est GFR (Non-Af Amer) > 60 07/20/16 06:20 Random Glucose 105 mg/dL (65-105) 07/20/16 06:20 Lactic Acid 0.9 MMOL/L (0.7-2.1) 07/15/16 11:29 Calcium 8.5 mg/dL (8.4-10.2) 07/20/16 06:20 Total Bilirubin 0.3 mg/dl (0.2-1.3) 07/20/16 06:20 AST 30 U/L (14-36) 07/20/16 06:20 ALT 76 U/L (9-52) H D 07/20/16 06:20 Alkaline Phosphatase 143 U/L (38-126) H 07/20/16 06:20 Troponin I < 0.0120 ng/mL (0.00-0.120) 07/14/16 07:24 Total Protein 5.5 G/DL (6.3-8.2) L 07/20/16 06:20 Albumin 2.8 g/dL (3.5-5.0) L 07/20/16 06:20 Globulin 2.7 gm/dL (2.2-3.9) 07/20/16 06:20 Albumin/Globulin Ratio 1.0 (1.0-2.1) 07/20/16 06:20 Lipase 276 U/L (23-300) 07/18/16 06:02 Arterial Blood Potassium 3.4 mmol/L (3.6-5.2) L 07/14/16 15:15 Urine Color Yellow (YELLOW) 07/14/16 07:25 Urine Clarity Slighty-cloudy (Clear) 07/14/16 07:25 Urine pH 7.0 (5.0-8.0) 07/14/16 07:25 Ur Specific [place] 1.011 (1.003-1.030) 07/14/16 07:25 Urine Protein 30 mg/dL (NEGATIVE) 07/14/16 07:25 Urine Glucose (UA) Neg mg/dL (Normal) 07/14/16 07:25 Urine Ketones Negative mg/dL (NEGATIVE) 07/14/16 07:25 Urine Blood Negative (NEGATIVE) 07/14/16 07:25 Urine Nitrate Negative (NEGATIVE) 07/14/16 07:25 Urine Bilirubin Negative (NEGATIVE) 07/14/16 07:25 Urine Urobilinogen 0.2-1.0 mg/dL (0.2-1.0) 07/14/16 07:25 Ur Leukocyte Esterase Small [place]/uL (Negative) 07/14/16 07:25 Urine RBC (Auto) 5 /hpf (0-3) H 07/14/16 07:25 Urine Microscopic WBC 26 /hpf (0-5) H 07/14/16 07:25 Urine Bacteria Occ (<OCC) H 07/14/16 07:25 - Hospital Course Hospital Course: 86 year old female with PMH HTN, arthritis, respiratory failure, CVA, presented on 07/14/16 [place]/p fall from [place] . CT Head and CT Pelvis were negative. CT Abdomen/Pelvis 07/14/16 showed evidence of gallstones and findings concerning for cholecystitis. Blood tests showed Lipase 10K . MRCP 07/14/16 also showed gallstones with evidence of cholecystitis with visualized portion of CBD appearing normal in caliber without filling defects and evidence of pancreatitis. Surgery Dr. Claros recommended GI evaluation for possible ERCP. GI Dr. Diehl did not recommend ERCP due to the results of the MRCP. As per surgery patient is a poor surgical candidate and recommended IV antibiotics and if conditions worsen either Cholecystostomy or Percutaneous Transhepatic Cholangiography Tube placement . At present patient clinically improving , LFT-s trended down, Lipase is now normal. Ptt is tolerating [place] diet and her abdominal pain has resolved . On Meropenem and Flagyl IV as per ID for E.coli Bacteremia and UTI 1. Sepsis with gram negative bacteremia ( E coli) secondary to acute cholecystitis, Gallstone Pancreatitis and UTI improved, hemodynamically stable, afebrile blood cx and urine cx positive for E. Coli GI, surgery and ID consulted patient is poor surgical candidate continue IV meropenem and Flagyl for total 14-21 days as per ID - 10 more days in [place], PICC line placed Echo showed no vegetations Will d/c pt back to [place] 2. Gallstone Pancreatitis improved lipase now normal, LFT-s trending down, WBC-normalized MRCP showed no CBD filling defect so no ERCP is needed as per GI Continue current management with IV antibiotics, pain management, IVF Advanced to [place] diet and pt is tolerating 3. Acute Cholecystitis/Choledocholithiasis Continue medical management as above no ERCP needed not a surgical candidate 4. Fall CT head and Pelvis both neg fall precautions Patient not ambulatory in [place], goes around with wheelchair 5. UTI Urine cs positive for E.Coli Continue Meropenem IV 6.Hx CVA resume Asa 81 mg po daily Hold Atorvastatin bec of abn LFT- restart in [place] 7. Hypertension Restart her home medications Norvasc and Lisinopril HCTZ on hold 8. Anemia of chronic disease resume Ferrous sulfate Hgb8.6 9. Arthritis Toradol 15 mg IV Q6H PRN Pain 10. 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 Thrombocytopenia chronic noted low platelets since 2013 continue to monitor Hematology appt as outpt 12.DVT ppx Hold lovenox due to anemia and thrombocytopenia SCD Discharge Exam - Head Exam Head Exam: ATRAUMATIC, NORMAL INSPECTION, NORMOCEPHALIC - Eye Exam Eye Exam: EOMI, Normal appearance Pupil Exam: NORMAL ACCOMODATION - ENT Exam ENT Exam: Mucous Membranes Moist, Normal External Ear Exam - Neck Exam Neck exam: Full Rom - Respiratory Exam Respiratory Exam: NORMAL BREATHING PATTERN. absent: Respiratory Distress - Cardiovascular Exam Cardiovascular Exam: REGULAR RHYTHM, +S1, +S2 - GI/Abdominal Exam GI & Abdominal Exam: Normal Bowel Sounds, Soft. absent: Tenderness - Extremities Exam Extremities exam: normal capillary refill, pedal pulses present - Back Exam Back exam: NORMAL INSPECTION. absent: paraspinal tenderness - Neurological Exam Neurological exam: Alert, CN II-XII Intact Additional comments: oriented to person and place - Skin Skin Exam: Dry, Normal Color, Warm Discharge Plan - Discharge Medications Prescriptions: Metronidazole [Flagyl] 500 mg PO Q8 #30 tablet Meropenem-0.9% Sodium Chloride [Meropenem 1g/NS 100mL IVPB] 1 gm IV Q12 10 Days - Follow Up Plan Condition: IMPROVED Disposition: TRANSF TO SNF Additional Instructions: d/c pt to [facility] cont IV Meropenem x 10 more days Referrals: Justin Spain MD [Primary Care Provider] -
--- NOTE | 2016-07-20 15:30 | PCM.SURG1 ---
Surgeon's Initial Post Op Note - Surgeon's Notes Surgeon: Eddie Forest Supervisor: None Type of Anesthesia: Local Pre-Operative Diagnosis: IV Access. Operative Findings: Patent right basilic vein. Post-Operative Diagnosis: IV access. Operation Performed: Right basilic vein 36cm 4F SL PICC placed with tip at the SVC/RA junction. Specimen/Specimens Removed: None Estimated Blood Loss: EBL {In ML}: 1 Date of Surgery/Procedure: 07/20/16 Time of Surgery/Procedure: 15:10
[2016-07-20 15:35] VITALS: BP 135/56; PULSE 96; TEMP 98.6; O2SAT 92
--- NOTE | 2016-07-20 16:27 | VASCULAR ---
Procedure: Ultrasound and fluoroscopically placed Right upper extremity PICC. Clinical indication: Long-term IV antibiotics. Technique: The relative risks and indications of the procedure were explained to the patient and written informed consent obtained. The patient was placed supine on the angiographic table and the right arm prepped and draped in the usual sterile fashion. A tourniquet was applied to the right axilla. 1% lidocaine was used to anesthetize the skin and soft tissues at the puncture site above the elbow. The right basilic vein was punctured under direct ultrasound guidance with a micropuncture set. A permanent image was stored. A 0.018 guidewire was advanced centrally and used to measure the length to the SVC/RA junction. A 4 [place] single-lumen PICC, size 36 cm, was advanced to the SVC/RA junction under fluoroscopic guidance. The catheter was flushed and secured. The patient tolerated the procedure well. Postprocedure chest image was obtained to ensure location of the catheter tip at the SVC right atrial junction. Impression: Ultrasound and fluoroscopically placed right upper extremity PICC. A 4 [place] single-lumen PICC, size 36 cm was advanced to the SVC/RA junction. PICC ready for use.
--- NOTE | 2016-07-20 17:15 | CARD ---
APPROVED REPORT EKG Measurement Heart [id number] <Conclusion> Normal sinus rhythm with sinus arrhythmia Normal ECG
== END 2016-07-20 18:00 | DRG 871 ==
LOC: H.ER 05:51 → H.EROBSV 07:30 → H.ERHOLD 11:38 → OBSVTOIN 11:38 → H.MEDSURG1 12:30 → H.TEL 07-15 16:53
PROVIDERS: ADMIT Student in an Organized Health Care Education/Training Program; ATTEND Student in an Organized Health Care Education/Training Program
PROC: BF37ZZZ Magnetic Resonance Imaging (MRI) of Pancreas (ICD-10-PCS; 2016-07-14)
PROC: 02HV33Z Insertion of Infusion Device into Superior Vena Cava, Percutaneous Approach (ICD-10-PCS; principal; 2016-07-19)
PROC: B518ZZA Fluoroscopy of Superior Vena Cava, Guidance (ICD-10-PCS; 2016-07-19)
PROC: 3E04329 Introduction of Other Anti-infective into Central Vein, Percutaneous Approach (ICD-10-PCS; 2016-07-19)
DX: A41.51 Sepsis due to Escherichia coli [E. coli] (principal); K85.10 Biliary acute pancreatitis without necrosis or infection; K80.62 Calculus of gallbladder and bile duct with acute cholecystitis without obstruction; F03.90 Unspecified dementia, unspecified severity, without behavioral disturbance, psychotic disturbance, mood disturbance, and anxiety; N39.0 Urinary tract infection, site not specified; D69.59 Other secondary thrombocytopenia; D63.8 Anemia in other chronic diseases classified elsewhere; M06.9 Rheumatoid arthritis, unspecified; I10 Essential (primary) hypertension; M81.0 Age-related osteoporosis without current pathological fracture; I25.10 Atherosclerotic heart disease of native coronary artery without angina pectoris; K59.09 Other constipation; K43.9 Ventral hernia without obstruction or gangrene; K21.9 Gastro-esophageal reflux disease without esophagitis; Z66 Do not resuscitate; Z79.82 Long term (current) use of aspirin; Z86.73 Personal history of transient ischemic attack (TIA), and cerebral infarction without residual deficits; Z87.01 Personal history of pneumonia (recurrent); Z87.440 Personal history of urinary (tract) infections

== ENCOUNTER 2016-12-06 07:48 | Inpatient (IN) | payer MEDICARE, MEDICAID ==
[2016-12-06 07:49] VITALS: BMI 30.9
[2016-12-06] MEDS ORDERED: Albuterol-Ipratrop 3 mg / 0.5 (3 ml) UD INH STA (08:07)
[2016-12-06] MEDS ORDERED: Sodium Chloride 0.9% 1,000 ML IV SCH (08:15)
[2016-12-06 08:27] LABS: VENOUS BLOOD GAS BASE EXCESS 5.5 mmol/L (0.0-2.0); VENOUS BLOOD GAS PCO2 42 mmHg (40-60); VENOUS BLOOD GAS PO2 45 mm/Hg (30-55); VENOUS BLOOD PH 7.46 (7.32-7.43)
[2016-12-06 08:31] LABS: BASO % 0.3 % (0.0-2.0); HEMOGLOBIN 11.4 g/dL (12.0-16.0); LYMPH # 0.3 K/uL (1.0-4.3); LYMPH % 2.8 % (20.0-40.0); MEAN CELL VOLUME 89.3 fl (81.0-99.0); MEAN CORPUSCULAR HEMOGLOBIN 29.5 pg (27.0-31.0); MEAN PLATELET VOLUME 9.8 fl (7.2-11.7); MONO # 1.3 K/uL (0.0-0.8); NEUT # 9.9 K/uL (1.8-7.0); NEUT % 85.9 % (50.0-75.0); NRBC % 0.1 % (0.0-0.0); PLATELET COUNT 136 K/uL (130-400); RBC 3.86 Mil/uL (3.80-5.20); RED CELL DISTRIBUTION WIDTH 13.5 % (11.5-14.5); WHITE BLOOD COUNT 11.5 K/uL (4.8-10.8)
[2016-12-06] MEDS ORDERED: Albuterol-Ipratrop 3 mg / 0.5 (3 ml) UD ONE (08:39)
[2016-12-06 08:43] LABS: ALB/GLOB RATIO 1.3 (1.0-2.1); ALBUMIN 4.2 g/dL (3.5-5.0); ALT/SGPT 743 U/L (9-52); BLOOD UREA NITROGEN 19 mg/dl (7-17); CALCIUM 9.6 mg/dL (8.4-10.2); GFR AFRICAN-AMERICAN > 60; GFR NON-AFRICAN AMERICAN 59; MAGNESIUM 2.3 MG/DL (1.6-2.3)
[2016-12-06 08:54] LABS: B-TYPE NATRIURETIC PEPTIDE 403 pg/ml (0-900)
[2016-12-06 09:02] LABS: INR 1.1 (0.9-1.2); PARTIAL THROMBOPLASTIN TIME 27.6 Seconds (25.6-37.1); PROTHROMBIN TIME 11.7 Seconds (9.8-13.1)
[2016-12-06 09:08] LABS: AST/SGOT 1676 U/L (14-36)
--- NOTE | 2016-12-06 09:30 | ED PDOC ---
HPI: Abdomen Time Seen by Provider: 12/06/16 07:54 Chief Complaint (Nursing): GI Problem Chief Complaint (Provider): Abdominal Pain History Per: Patient History/Exam Limitations: clinical condition Onset/Duration Of Symptoms: Days (today 6am) Current Symptoms Are (Timing): Still Present Associated Symptoms: denies: Chest Pain Additional Complaint(s): Chetna Betts, an 86 year old female, with a past medical history of sepsis, renal failure, hypertension and respiratory failure is brought into the ED from her correction by EMS for abdominal pain, vomiting and fever. Patient history is limited due to patient decreased response state, information obtained from correction records and EMS. Per EMS, while at the correction the patient had a fever of 101 and was vomiting green. They state that the correction attendants did not give the patient aspirin because of the abdominal pain. EMS state that the patient is currently not at her baseline but she is responsive to stimuli. At baseline patient is verbal but very hard of hearing. Patient is humming in ED. Patient was diagnosed with gall stones and pancreatitis in August 2016, with no surgical intervention only antibiotics were given. Of note: Patient has Do Not Resuscitate and Do Not Intubate requests in place. PMD: Dr. Spain Past Medical History Reviewed: Historical Data, Nursing Documentation, Vital Signs Vital Signs: Last Vital Signs Temp 100.0 F H 12/06/16 10:41 Pulse 90 12/06/16 09:20 Resp 16 12/06/16 09:20 BP 157/95 H 12/06/16 09:20 Pulse Ox 99 12/06/16 10:56 - Medical History PMH: Arthritis, CVA, Dementia, Depression, Fractures (right femur fx with surgery), HTN, Osteoporosis, Pneumonia, End Stage Renal Disease, Rheumatoid Arthritis Denies: HIV, Chronic Kidney Disease Other PMH: Sepsis, Respiratory Failure,Cholecystitis - Surgical History Surgical History: Appendectomy, Cholecystectomy - Family History Family History: States: Unknown Family Hx - Living Arrangements Living Arrangements: Residential/Assist Lvng - Immunization History Hx Tetanus Toxoid Vaccination: No Hx Influenza Vaccination: Yes Hx Pneumococcal Vaccination: Yes - Home Medications Home Medications: Ambulatory Orders Medication Instructions Recorded Atorvastatin [Lipitor] 10 mg PO HS #0 tab 09/12/14 Lisinopril [Zestril] 20 mg PO DAILY #0 tab 09/12/14 Magnesium Hydroxide [Milk Of 30 ml PO HS PRN #0 udc 09/12/14 Magnesia] Albuterol/Ipratropium [Duoneb 3 3 ml IH Q8H PRN 01/22/16 mg/0.5 mg (3 ml) UD] Aspirin [Aspirin Chewable] 81 mg PO DAILY 01/22/16 Bisacodyl [Dulcolax] 10 mg TX DAILY PRN 01/22/16 Calcium Carbonate/Vitamin D3 1 tab PO DAILY 01/22/16 [Os-Mahesh 500-Vit D3 200 Caplet] Docusate [Colace] 100 mg PO BID 01/22/16 Ferrous Sulfate [Feosol] 325 mg PO BID 01/22/16 Multivitamin [Multi-Vitamin Daily] 1 tab PO DAILY 01/22/16 Simethicone [Mylicon Liq] 2.4 ml PO BID PRN 01/22/16 Difluprednate [Durezol] 1 drop LEFTEYE BID 07/14/16 Hard Fat/Phenylephrine [place] 1 sup TX DAILY PRN #0 sup 07/20/16 [Anusol Suppository] Lactobacillus Acidophilus [Bacid 1 cap PO BID cap 07/20/16 Acidophilus] Meropenem 1g/NS 100mL IVPB 1 gm IV Q12 10 Days 07/20/16 [Meropenem 1g/NS 100mL IVPB] Metronidazole [Flagyl] 500 mg PO Q8 #30 tablet 07/20/16 Pantoprazole [Protonix EC Tab] 40 mg PO DAILY ect 07/20/16 amLODIPine [Norvasc] 10 mg PO DAILY tab 07/20/16 - Allergies Allergies/Adverse Reactions: Allergies Allergy/AdvReac Type Severity Reaction Status Date / Time No Known Allergies Allergy Verified 07/14/16 05:57 Review of Systems Review Of Systems: ROS cannot be obtained secondary to pt's inabilty to answer questions. Constitutional: Positive for: Fever Cardiovascular: Negative for: Chest Pain Respiratory: Negative for: Shortness of Breath Gastrointestinal: Positive for: Vomiting (green vomit), Abdominal Pain Physical Exam - Reviewed Nursing Documentation Reviewed: Yes Vital Signs Reviewed: Yes - Physical Exam Appears: Positive for: Uncomfortable Head Exam: Positive for: ATRAUMATIC, NORMAL INSPECTION, NORMOCEPHALIC Skin: Positive for: Normal Color, Warm, Dry Eye Exam: Positive for: Normal appearance (No erythema in conjunctiva bilaterally), EOMI, PERRL, Other (Right eye patched from previous cataract surgery.) ENT: Positive for: Normal ENT Inspection Neck: Positive for: Normal, Painless ROM, Supple Cardiovascular/Chest: Positive for: Regular Rate, Rhythm, Chest Non Tender. Negative for: Tachycardia Respiratory: Positive for: Other (Lungs mildly coarse and mildly decreased.). Negative for: Accessory Muscle Use, Wheezing, Respiratory Distress Gastrointestinal/Abdominal: Positive for: Tenderness (Tenderness diffusely in abdomen with hernia present.), Hernia (Hernia below umbilical area; no skin erythema or echymosis) Back: Positive for: Normal Inspection. Negative for: L CVA Tenderness, R CVA Tenderness Extremity: Positive for: Normal ROM (moving extremities on her own will). Negative for: Tenderness, Pedal Edema Neurologic/Psych: Positive for: Oriented, Other (limited and pt. only response to some stimuli). Negative for: Alert (Arousable to stimuli and some verbal communication pt. responds appropriately), Motor/Sensory Deficits, Facial Droop - Laboratory Results Result Diagrams: 12/06/16 08:20 12/06/16 08:20 Interpretation Of Abn Labs: 4798 lipase, urine wbc, 11.5 wbc, elevated ast and alt - ECG ECG: Positive for: Interpreted By Me, Viewed By Me ECG Rhythm: Positive for: Sinus Tachycardia O2 Sat by Pulse Oximetry: 99 (RA) Pulse Ox Interpretation: Normal - Radiology X-Ray: Read By Radiologist X-Ray Interpretation: No Acute Disease - CT Scan/US ct Other Rad Studies (CT/US): Read By Radiologist Other Rad Interpretation: gallstones; renal lesions - Progress ED Course And Treament: 1051: Pt. stable. Pt. with gallstone pancreatitis and possibly cholecystitis flare again. Similar last visits. Labs worsened compared to dc labs from last visit. Will start meropenem as last visit. Severe sepsis criteria met. Not hypotensive. 1102: Stable. Spoke with Dr. Parham who will admit. Spoke with Dr. Diehl who will consult. No additional tx at this time. Surgery paged. 1114: Stable. Spoke with Dr. Lake who is covering Dr. Claros. Will consult, continue current care. - Critical Care Total Time (In Min): 30 Documented Critical Care: Time excludes all time spent performint seperately billable procedures Medical Decision Making Medical Decision Makin Initial Impression: 86 year old female presenting with abdominal pain, fever and vomiting Initial Plan: * Venous Blood Gas * CT ABD & PELVIS IV Contrast * EKG * B-type Natriuretic * Comp Metabolic Panel * Lipase * Magnesium * Phosphorous * Troponin * Udip * CBC * Partial Thromboplastin * Prothrombin time * CXR * Duoneb 3ml INH * Morphine 2mg IV * NS 1000mls IV 200mls/hr * Tylenol 975mg TX * Blood Culture * Urine Culture * Urinalysis * Peak Flow Pre/post * Reevaluation Scribe Attestation Documented by Judy Fisher acting as a scribe for Natasha Julien MD. Provider Attestation: All medical record entries made by the Scribe were at my direction and personally dictated by me. I have reviewed the chart and agree that the record accurately reflects my personal performance of the history, physical exam, medical decision making, and the department course for this patient. I have also personally directed, reviewed, and agree with the discharge instructions and disposition. Disposition - Clinical Impression Clinical Impression: Gallstone pancreatitis, Cholecystitis, Severe sepsis, UTI (urinary tract infection) - Patient ED Disposition Is Patient to be Admitted: Yes - Disposition Disposition Time: 11:04 Condition: GUARDED - Pt Status Changed To: Hospital Disposition Of: Inpatient - Admit Certification Admit to Inpatient:: After my assessment, the patient will require hospitalization for at least two midnights. This is because of the severity of symptoms shown, intensity of services needed, and/or the medical risk in this patient being treated as an outpatient. - POA Present On Arrival: None
[2016-12-06] MEDS ORDERED: Iohexol 300 100 ML IJ ONE (09:35)
[2016-12-06] MEDS ORDERED: Sodium Chloride 0.9% 50 ML IV ONE (09:36)
--- NOTE | 2016-12-06 10:29 | CT ---
PROCEDURE: CT Abdomen and Pelvis with contrast HISTORY: abd pain COMPARISON: 07/14/2016 and 07/30/2014 CT abdomen and pelvis. TECHNIQUE: Contrast dose: 100 cc of Omnipaque 350 Radiation dose: Total exam DLP = 754 mGy-cm. This CT exam was performed using one or more of the following dose reduction techniques: Automated exposure control, adjustment of the mA and/or kV according to patient size, and/or use of iterative reconstruction technique. FINDINGS: LOWER THORAX: Unremarkable. LIVER: Unremarkable. No gross lesion or ductal dilatation. GALLBLADDER AND BILE DUCTS: Cholelithiasis. PANCREAS: Unremarkable. No gross lesion or ductal dilatation. SPLEEN: Unremarkable. ADRENALS: Unremarkable. No mass. KIDNEYS AND URETERS: Bilateral enhancing 17 millimeter solid renal masses which are larger when compared the prior examination is highly suggestive of renal cell carcinoma. VASCULATURE: Unremarkable. No aortic aneurysm. BOWEL: Colonic diverticulosis. No obstruction. No gross mural thickening. APPENDIX: Normal appendix. PERITONEUM: Unremarkable. No free fluid. No free air. LYMPH NODES: Unremarkable. No enlarged lymph nodes. BLADDER: Major catheter in the bladder. REPRODUCTIVE: Unremarkable. BONES: No acute fracture. OTHER FINDINGS: 7 centimeter anterior abdominal wall hernia. IMPRESSION: No acute pathology. Increasing enhancing lesions in the kidneys bilaterally suspicious for renal cell carcinoma. Cholelithiasis. Colonic diverticulosis.
--- NOTE | 2016-12-06 10:30 | RAD ---
HISTORY: Sepsis Patient COMPARISON: No prior. FINDINGS: LUNGS: No active pulmonary disease. PLEURA: No significant pleural effusion identified, no pneumothorax apparent. CARDIOVASCULAR: Normal. OSSEOUS STRUCTURES: No significant abnormalities. VISUALIZED UPPER ABDOMEN: Normal. OTHER FINDINGS: None. IMPRESSION: No active disease.
[2016-12-06 10:41] LABS: URINE BACTERIA RARE (<OCC); URINE BILIRUBIN NEGATIVE (NEGATIVE); URINE BLOOD MODERATE (NEGATIVE); URINE CLARITY CLOUDY (Clear); URINE COLOR YELLOW (YELLOW); URINE GLUCOSE (UA) NEG (Normal); URINE LEUKOCYTE ESTERASE MOD Leu/uL (Negative); URINE NITRATE NEGATIVE (NEGATIVE); URINE PROTEIN 100 mg/dL (NEGATIVE); URINE UROBILINOGEN 0.2-1.0 mg/dL (0.2-1.0)
[2016-12-06] MEDS ORDERED: Meropenem 1 GM in Sodium Chloride 0.9% 100 ML IVPB ONE (10:50)
[2016-12-06] MEDS ORDERED: Lactated Ringer's 1,000 ML IV SCH (11:00)
[2016-12-06 11:47] LABS: VENOUS BLOOD GAS BASE EXCESS 2.7 mmol/L (0.0-2.0); VENOUS BLOOD GAS PCO2 44 mmHg (40-60); VENOUS BLOOD GAS PO2 88 mm/Hg (30-55); VENOUS BLOOD PH 7.41 (7.32-7.43)
[2016-12-06 11:49] LABS: BANDS 6 % (0-2); LYMPHOCYTE 7 % (20-50); METAMYELOCYTE 1 % (0-0); MONOCYTE 12 % (0-10); NEUTROPHIL 71 % (42-75); PLATELET ESTIMATE NORMAL (NORMAL); REACTIVE LYMPHOCYTES 3 % (0-0); TOTAL CELLS COUNTED 100
[2016-12-06 11:50] LABS: HYPOCHROMIC SLIGHT
--- NOTE | 2016-12-06 12:48 | CARD ---
APPROVED REPORT EKG Measurement Heart [id number] <Conclusion> Normal sinus rhythm Normal ECG
--- NOTE | 2016-12-06 14:26 | CP.PCM.HP ---
History of Present Illness - History of Present Illness History of Present Illness: 86 year old female ,[place] resident with PMH of dementia (poor historian, history obtained through chart review, niece ) HTN, arthritis, respiratory failure, CVA, history of aneurismal repair ,brought to ER for fever, abdominal pain , nausea and vomiting .As per half-way and EMS notes patient had fever 101 and was having bilious vomiting. In ER found to be febrile Tmax 104 , WBC 11.5 elevated lipase 4799 AST/ALt 1676/743 CT abdomen and pelvis showed : No acute pathology. Increasing enhancing lesions in the kidneys bilaterally suspicious for renal cell carcinoma. Cholelithiasis. Colonic diverticulosis At her baseline she is bedbound, responsive to stimuli , hard on hearing.At present she is lethargic She is DNR/ DNI Patient had recent admission for gallstone pancreatitis july 2016 and was treated medically. ROS: per HPI, unable to get detailed ROS since patient is lethargic and demented . As per niece patient was having fever and vomiting PMD: Dr. Spain ALLERGIES: NKDA PMH:HTN, arthritis, respiratory failure, CVA, head injury, brain aneurysmal repair , Cholelithaisis / gallstone pancreatitis PSH:s/p ORIF R, catarct surgery left eye and right 12/02/16 , brain aneurysm repair FH: Unknown SH: does not smoke, drink or uses drugs. [place] resident, bed bound, demented , Surrogate decision maker nidirk Basilio , patient is DNR / DNI MEDS: see med rec pupil personnel worker: Surrogate decision maker Chetna Chin Nidirk [phone] Present on Admission - Present on Admission Any Indicators Present on Admission: No Past Patient History - Infectious Disease Hx of Infectious Diseases: None - Tetanus Immunizations Tetanus Immunization: Unknown, Allergy to Tetanus Vaccine - Past Medical History & Family History Past Medical History?: Yes - Past Social History Smoking Status: Never Smoked - CARDIAC Hx Hypertension: Yes - PULMONARY Hx Pneumonia: Yes Other/Comment: respiratory failure and h/o sepsis - NEUROLOGICAL HX Cerebrovascular Accident: Yes Hx Dementia: Yes - HEENT Hx HEENT Problems: Yes Hx Cataracts: Yes (August 2016) 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) - RENAL Hx Renal Failure: Yes - ENDOCRINE/METABOLIC Hx Endocrine Disorders: No - HEMATOLOGICAL/ONCOLOGICAL Hx Human Immunodeficiency Virus (HIV): No - INTEGUMENTARY Hx Dermatological Problems: No - MUSCULOSKELETAL/RHEUMATOLOGICAL Hx Arthritis: Yes Hx Falls: Yes Hx Fractures: Yes Hx Osteoporosis: Yes Hx Rheumatoid Arthritis: Yes - GASTROINTESTINAL Hx Gastrointestinal Disorders: Yes Hx Gastroesophageal Reflux: Yes - GENITOURINARY/GYNECOLOGICAL Hx Genitourinary Disorders: Yes - PSYCHIATRIC Hx Depression: Yes Hx Substance Use: No - SURGICAL HISTORY Hx Appendectomy: Yes Hx Cholecystectomy: Yes Other/Comment: b/l eye cataract and rt eye catarct August 2016 and rt femur fx. - ANESTHESIA Hx Anesthesia: Yes Hx Anesthesia Reactions: No Hx Malignant Hyperthermia: No Has any member of the family had a problem w/ anesthesia?: No Meds Allergies/Adverse Reactions: Allergies Allergy/AdvReac Type Severity Reaction Status Date / Time No Known Allergies Allergy Verified 07/14/16 05:57 Physical Exam - Constitutional Appears: Non-toxic, In Acute Distress, Other (lethargic ) - Head Exam Head Exam: ATRAUMATIC, NORMAL INSPECTION, NORMOCEPHALIC - Eye Exam Additional comments: right eye s/p cataract surgery with dressing in place left eye --pupil reactive to light - ENT Exam ENT Exam: Mucous Membranes Dry, Normal Exam - Neck Exam Neck exam: Positive for: Full Rom, Normal Inspection - Respiratory Exam Respiratory Exam: Clear to Auscultation Bilateral, NORMAL BREATHING PATTERN. absent: Rhonchi, Wheezes, Respiratory Distress - Cardiovascular Exam Cardiovascular Exam: REGULAR RHYTHM, RRR, +S1, +S2. absent: JVD - GI/Abdominal Exam GI & Abdominal Exam: Normal Bowel Sounds, Soft. absent: Guarding, Rebound - Rectal Exam Rectal Exam: Deferred - Extremities Exam Extremities exam: Positive for: normal capillary refill, normal inspection, pedal pulses present. Negative for: calf tenderness, pedal edema - Neurological Exam Additional comments: lethargic moaning does not follow any commands at present - Skin Skin Exam: Dry, Normal Color, Warm Results - Vital Signs Recent Vital Signs: Last Vital Signs Temp 97.9 F 12/06/16 12:46 Pulse 63 12/06/16 12:52 Resp 20 12/06/16 12:52 BP 124/65 12/06/16 12:46 Pulse Ox 98 12/06/16 12:52 - Labs Result Diagrams: 12/06/16 08:20 12/06/16 08:20 Labs: Laboratory Results - last 24 hr 12/06/16 11:44 pO2 88 H VBG pH 7.41 VBG pCO2 44 VBG HCO3 27.0 VBG Total CO2 29.3 H VBG O2 Sat (Calc) 99.3 H VBG Base Excess 2.7 H VBG Potassium 4.0 A-a O2 Difference 7.0 Sodium 136.0 Chloride 106.0 Glucose 160 H Lactate 1.3 FiO2 21.0 Venous Blood Potassium 4.0 - Imaging and Cardiology Ct abdomen and pelvis Additional comment: No acute pathology. Increasing enhancing lesions in the kidneys bilaterally suspicious for renal cell carcinoma. Cholelithiasis. Colonic diverticulosis Assessment & Plan - Assessment and Plan (Free Text) Assessment: 86 year old female ,[place] resident with PMH of dementia (poor historian, history obtained through chart review, niece ) HTN, arthritis, respiratory failure, CVA, history of aneurismal repair ,brought to ER for fever, abdominal pain , nausea and vomiting .As per half-way and EMS notes patient had fever 101 and was having bilious vomiting. In ER found to be febrile Tmax 104 , WBC 11.5 elevated lipase 4799 AST/ALt 1676/743 CT abdomen and pelvis showed : No acute pathology. Increasing enhancing lesions in the kidneys bilaterally suspicious for renal cell carcinoma. Cholelithiasis. Colonic diverticulosis 1. Sepsis Most likely secondary to acute cholecystitis, pancreatitis and UTI admit patient to telemetry Start IVF Meropenem IV, zosyn and gentamycin Blood and urine cx Call ID, surgery and GOI consult Follow up Abd UD 2. Acute gallstone pancreatitis Keep NPo surgery eval 3. Transaminitis Most likely secondary to cholecystitis with cholelithiasis check Hepatitis profile Abd US GI eval MRCP to rule out CBD stone 4. Suspected Acute cholecystitis with cholelithiasis on IV Meropenem, zosyn and genta Surgery and ID eval f/u Abd US 5. UTI Ua cloudy , WBC elevated , LE moderate and with bacteria follow up cultures ID consulted Continue IV meropenem 6. Dementia patient is [place] resident, bed bound , demented and hard on hearing niece is surrogate decision maker She is DNR/DNI 7. Hypertension cpntroleld resume home meds Norvasc anD lisinopril 8. Anemia of chronic disease on ferrous sulfate 9. DVT prophylaxis SCD and lovenox
--- NOTE | 2016-12-06 17:07 | CP.PCM.CON ---
History of Present Illness - History of Present Illness History of Present Illness: General Surgery - Dr. Lake (Covering for Dr. Judge) 86yo F, [place] resident with hx of Dementia, CVA, HTN, Arthritis, Pancreatitis, sent to ED for fevers and bilious vomiting as per EMS. History is obtained from the chart as pt. is non-verbal and minimally responsive at time of exam. She has been in the hospital recently (07/2016) for gallstone pancreatitis. At that time it was determined that pt was a poor candidate for any interventional procedures or surgery. Pt was treated with antibiotics and discharged back to the long-term. Pt recently began having fevers, abdominal pain, N/V. On exam she grimaces to palpation of the abdomen but remains with eyes closed and non-responsive to voice. Tmax in ED was 104. Labs significant for WBC of 11.5, Lipase 4799, AST/ALT 1676 /[address] abdomen/pelvis was done which showed cholelithiasis, and b/l enhancing lesions in the kidneys suspicious for renal cell ca. Surgery was consulted for gallstone pancreatitis. Review of Systems - Review of Systems Systems not reviewed;Unavailable: Altered Mental Status Past Patient History - Infectious Disease Hx of Infectious Diseases: None - Tetanus Immunizations Tetanus Immunization: Unknown, Allergy to Tetanus Vaccine - Past Medical History & Family History Past Medical History?: Yes - Past Social History Smoking Status: Never Smoked - CARDIAC Hx Hypertension: Yes - PULMONARY Hx Pneumonia: Yes Other/Comment: respiratory failure and h/o sepsis - NEUROLOGICAL HX Cerebrovascular Accident: Yes Hx Dementia: Yes - HEENT Hx HEENT Problems: Yes Hx Cataracts: Yes (August 2016) 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) - RENAL Hx Renal Failure: Yes - ENDOCRINE/METABOLIC Hx Endocrine Disorders: No - HEMATOLOGICAL/ONCOLOGICAL Hx Human Immunodeficiency Virus (HIV): No - INTEGUMENTARY Hx Dermatological Problems: No - MUSCULOSKELETAL/RHEUMATOLOGICAL Hx Arthritis: Yes Hx Falls: Yes Hx Fractures: Yes Hx Osteoporosis: Yes Hx Rheumatoid Arthritis: Yes - GASTROINTESTINAL Hx Gastrointestinal Disorders: Yes Hx Gastroesophageal Reflux: Yes - GENITOURINARY/GYNECOLOGICAL Hx Genitourinary Disorders: Yes - PSYCHIATRIC Hx Depression: Yes Hx Substance Use: No - SURGICAL HISTORY Hx Appendectomy: Yes Hx Cholecystectomy: Yes Other/Comment: b/l eye cataract and rt eye catarct August 2016 and rt femur fx. - ANESTHESIA Hx Anesthesia: Yes Hx Anesthesia Reactions: No Hx Malignant Hyperthermia: No Has any member of the family had a problem w/ anesthesia?: No Meds Allergies/Adverse Reactions: Allergies Allergy/AdvReac Type Severity Reaction Status Date / Time No Known Allergies Allergy Verified 07/14/16 05:57 - Medications Medications: Current Medications Sodium Chloride (Sodium Chloride 0.9%) 1,000 mls @ 200 mls/hr IV .Q5H [facility] Last Admin: 12/06/16 08:25 Dose: 200 mls/hr Lactated Ringer's (Lactated Ringer's) 1,000 mls @ 100 mls/hr IV .Q10H [facility] Last Admin: 12/06/16 11:17 Dose: 100 mls/hr Physical Exam - Constitutional Appears: No Acute Distress - Head Exam Head Exam: ATRAUMATIC, NORMAL INSPECTION, NORMOCEPHALIC - ENT Exam ENT Exam: Mucous Membranes Dry - Respiratory Exam Respiratory Exam: NORMAL BREATHING PATTERN. absent: Respiratory Distress - Cardiovascular Exam Cardiovascular Exam: REGULAR RHYTHM - GI/Abdominal Exam GI & Abdominal Exam: Distended (mild), Soft, Tenderness (diffusely, mostly epigastric). absent: Firm, Guarding, Hernia, Rebound, Rigid - Extremities Exam Extremities exam: Negative for: pedal edema - Neurological Exam Neurological exam: Altered Additional comments: lethargic and non-verbal - Skin Skin Exam: Dry, Intact Results - Vital Signs Recent Vital Signs: Last Vital Signs Temp 97.7 F 12/06/16 16:13 Pulse 66 12/06/16 16:13 Resp 20 12/06/16 16:13 BP 145/67 12/06/16 16:13 Pulse Ox 100 12/06/16 16:13 - Labs Result Diagrams: 12/06/16 08:20 12/06/16 08:20 Labs: Laboratory Results - last 24 hr 12/06/16 11:44 pO2 88 H VBG pH 7.41 VBG pCO2 44 VBG HCO3 27.0 VBG Total CO2 29.3 H VBG O2 Sat (Calc) 99.3 H VBG Base Excess 2.7 H VBG Potassium 4.0 A-a O2 Difference 7.0 Sodium 136.0 Chloride 106.0 Glucose 160 H Lactate 1.3 FiO2 21.0 Venous Blood Potassium 4.0 Assessment & Plan - Assessment and Plan (Free Text) Assessment: 86yo F w/ hx Dementia, CVA, HTN, brought from [place] for Fevers/vomiting, 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
--- NOTE | 2016-12-06 18:03 | CP.PCM.PN ---
Subjective - Date & Time of Evaluation Date of Evaluation: 12/06/16 Time of Evaluation: 18:00 - Subjective Subjective: I D NOTE PATIENT EXAMINED ,CHART REVIEWED ANTIBIOTICS ORDERED LABS ORDERED AWAIT CULTURES FULL CONSULT DICTATED Objective - Vital Signs/Intake and Output Vital Signs (last 24 hours): Temp Pulse Resp BP Pulse Ox 97.7 F 66 20 145/67 100 12/06/16 16:13 12/06/16 16:13 12/06/16 16:13 12/06/16 16:13 12/06/16 16:13 - Medications Medications: Current Medications Lactated Ringer's (Lactated Ringer's) 1,000 mls @ 100 mls/hr IV .Q10H [facility] Last Admin: 12/06/16 11:17 Dose: 100 mls/hr Piperacillin Sod/Tazobactam (Sod 3.375 gm/ Sodium Chloride) 100 mls @ 100 mls/ hr IVPB Q8 [facility] Gentamicin Sulfate/Sodium Chloride (Gentamicin 60mg/50ml Ns) 60 mg in 50 mls @ 50 mls/hr IVPB Q12 [facility] - Labs Labs: PT 11.7 Seconds (9.8-13.1) 12/06/16 08:20 INR 1.1 (0.9-1.2) 12/06/16 08:20 APTT 27.6 Seconds (25.6-37.1) 12/06/16 08:20
[2016-12-06] MEDS ORDERED: Morphine 4 MG/ML VIAL IVP PRN (20:04)
[2016-12-06] MEDS ORDERED: Albuterol-Ipratrop 3 mg / 0.5 (3 ml) UD IH PRN (20:11)
[2016-12-06] MEDS ORDERED: Anusol Suppository PR PRN (20:11)
[2016-12-06] MEDS ORDERED: Magnesium Hydroxide Susp 30 ml UD PO PRN (20:11)
[2016-12-06] MEDS: Gentamicin 60mg/50ml NS 60 MG/50 ML BAG IVPB SCH (21:24)
--- NOTE | 2016-12-07 01:09 | CON ---
INFECTIOUS DISEASE CONSULTATION DATE: The patient is on 4N telemetry unit. HISTORY OF PRESENT ILLNESS: She is an 86-year-old female who [place] a [facility] [place] [facility] whose past medical history includes dementia, hypertension, arthritis, and respiratory failure, and history of a CVA who was brought to the emergency room with fever, abdominal pain, nausea, and vomiting. The patient had a temp of 101. When seen in the ER, her white count was 11.5. Most of the history was taken from the chart as the patient is unable to give me any kind of report as she is lethargic and has dementia. PHYSICAL EXAMINATION: HEENT: Within normal limits. NECK: Essentially supple. LUNGS: There is decreased breath sounds. HEART: Regular sinus rhythm. ABDOMEN: Distended. It is tender diffusely and there is some rebound. EXTREMITIES: No CCE. LABORATORY DATA: Cultures are pending. White count is 11.5, hemoglobin 11.4, platelet count is 136, 85.9% polys. BUN is 19,creatinine 0.9, GFR is 59, total bilirubin is 1.7. AST is 1676, ALT is 743, alkaline phosphate is 191, and lipase is 4798. Abdomen and pelvic CT scan shows increased enhancing lesions in the kidneys bilaterally suspicious for renal cell carcinoma and cholelithiasis and colonic diverticulosis. IMPRESSION AND PLAN: Acute cholecystitis, past history of hypertension, dementia, chronic obstructive pulmonary disease, respiratory failure and cerebrovascular accident with a history of an aneurysmal repair. At the present time, she was given a dose of Meropenem prior to need to consult. We would place the patient on Zosyn 3.375 g IV piggyback q.8h. and gentamicin 60 mg IV piggyback q.12h., pay attention carefully to the renal status. I have ordered CMP for renal and liver laboratories for tomorrow. Luisito Mercer MD MTDD
[2016-12-07] MEDS: Piperacillin/Tazobact 3.375 GM in Sodium Chloride 0.9% 100 ML IVPB SCH ×3 (04:14→17:27)
[2016-12-07] MEDS: Sodium Chloride 0.9% 1,000 ML IV SCH ×3 (04:15→17:26)
[2016-12-07 06:32] LABS: ALB/GLOB RATIO 1.2 (1.0-2.1); ALBUMIN 3.3 g/dL (3.5-5.0); ALT/SGPT 653 U/L (9-52); AMYLASE 188 U/L (30-110); AST/SGOT 609 U/L (14-36); BLOOD UREA NITROGEN 16 mg/dl (7-17); CALCIUM 8.8 mg/dL (8.4-10.2); GFR AFRICAN-AMERICAN > 60; GFR NON-AFRICAN AMERICAN 52; LIPASE 1897 U/L (23-300)
--- NOTE | 2016-12-07 07:15 | CP.PCM.PN ---
Subjective - Date & Time of Evaluation Date of Evaluation: 12/07/16 Time of Evaluation: 06:40 - Subjective Subjective: General Surgery Progress Note for Dr. Lake Patient seen and examined at bedside. No acute event overnight. Patient still complaining of abdominal pain. Patient denies nause/vomiting at this time. She states family will be here today. Denies fever/chills, cp, sob, palpitations. Objective - Vital Signs/Intake and Output Vital Signs (last 24 hours): Temp Pulse Resp BP Pulse Ox 98.3 F 77 20 151/62 H 95 12/07/16 05:00 12/07/16 05:00 12/07/16 05:00 12/07/16 05:00 12/07/16 05:00 - Medications Medications: Current Medications Acetaminophen (Tylenol 650 Mg Supp) 650 mg [place] Q6 PRN PRN Reason: Fever >100.4 F Albuterol/Ipratropium (Duoneb 3 Mg/0.5 Mg (3 Ml) Ud) 3 ml IH Q8H PRN PRN Reason: wheezing/shortness of breath Amlodipine Besylate (Norvasc) 10 mg PO DAILY [facility] Aspirin (Aspirin Chewable) 81 mg PO DAILY [facility] Atorvastatin Calcium (Lipitor) 10 mg PO HS [facility] Last Admin: 12/06/16 21:23 Dose: 10 mg Bisacodyl (Dulcolax) 10 mg [place] DAILY PRN PRN Reason: Constipation Calcium/Vitamin D (Oyster Shell Calcium/Vitamin D 500 Mg-200 Iu) 1 tab PO DAILY [facility] Docusate Sodium (Colace) 100 mg PO BID [facility] Enoxaparin Sodium (Lovenox) 30 mg SC DAILY [facility] PRN Reason: Protocol Ferrous Sulfate (Feosol) 325 mg PO BID [facility] Home Med (Difluprednate [Durezol]) 1 drop LEFTEYE BID [facility] Piperacillin Sod/Tazobactam (Sod 3.375 gm/ Sodium Chloride) 100 mls @ 100 mls/ hr IVPB Q8 [facility] Last Admin: 12/07/16 04:14 Dose: 100 mls/hr Gentamicin Sulfate/Sodium Chloride (Gentamicin 60mg/50ml Ns) 60 mg in 50 mls @ 50 mls/hr IVPB Q12 [facility] Last Admin: 12/06/16 21:24 Dose: 50 mls/hr Sodium Chloride (Sodium Chloride 0.9%) 1,000 mls @ 100 mls/hr IV .Q10H [facility] Last Admin: 12/07/16 04:15 Dose: 100 mls/hr Ketorolac Tromethamine (Toradol) 30 mg IVP Q6 PRN PRN Reason: Pain, severe (8-10) Stop: 12/11/16 20:05 Lactobacillus Acidophilus (Bacid Acidophilus) 1 cap PO BID [facility] Lisinopril (Zestril) 20 mg PO DAILY [facility] Magnesium Hydroxide (Milk Of Magnesia) 30 ml PO HS PRN PRN Reason: Constipation Morphine Sulfate (Morphine) 2 mg IVP Q6 PRN PRN Reason: Pain, severe (8-10) Pantoprazole Sodium (Protonix Ec Tab) 40 mg PO DAILY [facility] - Labs Labs: 12/07/16 06:01 PT 11.7 Seconds (9.8-13.1) 12/06/16 08:20 INR 1.1 (0.9-1.2) 12/06/16 08:20 APTT 27.6 Seconds (25.6-37.1) 12/06/16 08:20 - Constitutional Appears: No Acute Distress - Head Exam Head Exam: ATRAUMATIC, NORMOCEPHALIC - Eye Exam Eye Exam: EOMI - Respiratory Exam Respiratory Exam: NORMAL BREATHING PATTERN - Cardiovascular Exam Cardiovascular Exam: REGULAR RHYTHM - GI/Abdominal Exam GI & Abdominal Exam: Distended (mild), Soft, Tenderness (diffuse). 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
[2016-12-07 09:28] LABS: HEMOGLOBIN 9.5 g/dL (12.0-16.0); MEAN CELL VOLUME 89.3 fl (81.0-99.0); MEAN CORPUSCULAR HGB CONC 33.6 g/dL (33.0-37.0); RBC 3.18 Mil/uL (3.80-5.20); RED CELL DISTRIBUTION WIDTH 13.8 % (11.5-14.5); WHITE BLOOD COUNT 9.8 K/uL (4.8-10.8)
[2016-12-07] MEDS: Calcium-Vit D 500 mg-200 Units Tab UD PO SCH (09:43)
[2016-12-07] MEDS: Enoxaparin 30 mg Syringe SC SCH (09:43)
[2016-12-07] MEDS: Pantoprazole 40 mg EC Tab PO SCH (09:43)
[2016-12-07] MEDS: Gentamicin 60mg/50ml NS 60 MG/50 ML BAG IVPB SCH ×2 (09:45→21:18)
[2016-12-07] MEDS: Lactobacillus Acidophilus 500 MU Cap PO SCH ×2 (09:51→17:27)
--- NOTE | 2016-12-07 10:26 | CP.PCM.PN ---
Subjective - Date & Time of Evaluation Date of Evaluation: 12/07/16 Time of Evaluation: 08:30 - Subjective Subjective: Patient was seen and evaluated bedside.Appears more awake and alert than yesterday.Denies any abdominal pain , nausea or vomiting at present or overnight. Hemodynamically stable, Tmax 101 LFt-s and lipase trending down urine cx positive for gram negative shon Objective - Vital Signs/Intake and Output Vital Signs (last 24 hours): Temp Pulse Resp BP Pulse Ox 98.3 F 78 20 152/70 H 95 12/07/16 05:00 12/07/16 09:44 12/07/16 05:00 12/07/16 09:44 12/07/16 05:00 - Medications Medications: Current Medications Acetaminophen (Tylenol 650 Mg Supp) 650 mg [place] Q6 PRN PRN Reason: Fever >100.4 F Albuterol/Ipratropium (Duoneb 3 Mg/0.5 Mg (3 Ml) Ud) 3 ml IH Q8H PRN PRN Reason: wheezing/shortness of breath Amlodipine Besylate (Norvasc) 10 mg PO DAILY [facility] Last Admin: 12/07/16 09:44 Dose: 10 mg Aspirin (Aspirin Chewable) 81 mg PO DAILY [facility] Last Admin: 12/07/16 09:44 Dose: 81 mg Atorvastatin Calcium (Lipitor) 10 mg PO HS [facility] Last Admin: 12/06/16 21:23 Dose: 10 mg Bisacodyl (Dulcolax) 10 mg AR DAILY PRN PRN Reason: Constipation Calcium/Vitamin D (Oyster Shell Calcium/Vitamin D 500 Mg-200 Iu) 1 tab PO DAILY [facility] Last Admin: 12/07/16 09:43 Dose: 1 tab Docusate Sodium (Colace) 100 mg PO BID [facility] Last Admin: 12/07/16 09:43 Dose: 100 mg Enoxaparin Sodium (Lovenox) 30 mg SC DAILY [facility] PRN Reason: Protocol Last Admin: 12/07/16 09:43 Dose: 30 mg Ferrous Sulfate (Feosol) 325 mg PO BID [facility] Last Admin: 12/07/16 09:44 Dose: 325 mg Home Med (Difluprednate [Durezol]) 1 drop LEFTEYE BID [facility] Piperacillin Sod/Tazobactam (Sod 3.375 gm/ Sodium Chloride) 100 mls @ 100 mls/ hr IVPB Q8 [facility] Last Admin: 12/07/16 09:45 Dose: 100 mls/hr Gentamicin Sulfate/Sodium Chloride (Gentamicin 60mg/50ml Ns) 60 mg in 50 mls @ 50 mls/hr IVPB Q12 [facility] Last Admin: 12/07/16 09:45 Dose: 50 mls/hr Sodium Chloride (Sodium Chloride 0.9%) 1,000 mls @ 100 mls/hr IV .Q10H [facility] Last Admin: 12/07/16 04:15 Dose: 100 mls/hr Ketorolac Tromethamine (Toradol) 30 mg IVP Q6 PRN PRN Reason: Pain, severe (8-10) Stop: 12/11/16 20:05 Lactobacillus Acidophilus (Bacid Acidophilus) 1 cap PO BID [facility] Last Admin: 12/07/16 09:51 Dose: 1 cap Lisinopril (Zestril) 20 mg PO DAILY [facility] Last Admin: 12/07/16 09:44 Dose: 20 mg Magnesium Hydroxide (Milk Of Magnesia) 30 ml PO HS PRN PRN Reason: Constipation Morphine Sulfate (Morphine) 2 mg IVP Q6 PRN PRN Reason: Pain, severe (8-10) Pantoprazole Sodium (Protonix Ec Tab) 40 mg PO DAILY [facility] Last Admin: 12/07/16 09:43 Dose: 40 mg - Labs Labs: 12/07/16 09:00 12/07/16 06:01 PT 11.7 Seconds (9.8-13.1) 12/06/16 08:20 INR 1.1 (0.9-1.2) 12/06/16 08:20 APTT 27.6 Seconds (25.6-37.1) 12/06/16 08:20 - Constitutional Appears: Non-toxic, No Acute Distress - Head Exam Head Exam: ATRAUMATIC, NORMAL INSPECTION, NORMOCEPHALIC - Eye Exam Eye Exam: EOMI, Normal appearance, PERRL Pupil Exam: NORMAL ACCOMODATION - ENT Exam ENT Exam: Mucous Membranes Moist, Normal Exam - Neck Exam Neck Exam: Full ROM, Normal Inspection - Respiratory Exam Respiratory Exam: Clear to Ausculation Bilateral, NORMAL BREATHING PATTERN. absent: Rales - Cardiovascular Exam Cardiovascular Exam: REGULAR RHYTHM, RRR, +S1, +S2. absent: JVD - GI/Abdominal Exam GI & Abdominal Exam: Soft, Normal Bowel Sounds. absent: Distended, Guarding, Tenderness, Rebound - Rectal Exam Rectal Exam: Deferred - Extremities Exam Extremities Exam: Full ROM, Normal Capillary Refill, Normal Inspection. absent : Calf Tenderness, Pedal Edema - Neurological Exam Neurological Exam: Alert, Awake, CN II-XII Intact Additional comments: pleasant oriented to place and person following commands - Psychiatric Exam Psychiatric exam: Normal Affect - Skin Skin Exam: Dry, Pallor, Warm Assessment and Plan - Assessment and Plan (Free Text) Assessment: 86 year old female ,[place] resident with PMH of dementia (poor historian, history obtained through chart review, niece ) HTN, arthritis, respiratory failure, CVA, history of aneurismal repair ,brought to ER for fever, abdominal pain , nausea and vomiting .As per longterm and EMS notes patient had fever 101 and was having bilious vomiting. In ER found to be febrile Tmax 104 , WBC 11.5 elevated lipase 4799 AST/ALt 1676/743 CT abdomen and pelvis showed : No acute pathology. Increasing enhancing lesions in the kidneys bilaterally suspicious for renal cell carcinoma. Cholelithiasis. Colonic diverticulosis 1. Sepsis Most likely secondary to acute cholecystitis, pancreatitis and UTI LFT-s and lipase trending down Continue IVF Continue Meropenem IV, zosyn and gentamycin Blood cx with no growth so far but urine cx positive gram negative shon ID, surgery and GI consulted Abd US showed cholelithiasis with no evidince of cholecystitis F/u MRCP 2. Acute gallstone pancreatitis LFT-s and lipase trending down F/u MRCP Start liquid diet Continue IVF , pain management GI and surgery eval 3. Transaminitis Most likely secondary to cholecystitis with cholelithiasis check Hepatitis profile Abd US showed cholelithiasis but no cholecystitis GI eval f/u MRCP to rule out CBD stone 4. Suspected Acute cholecystitis with cholelithiasis on IV Meropenem, zosyn and genta Surgery and ID eval Abd US showed no cholecystitis 5. UTI Ua cloudy , WBC elevated , LE moderate and with bacteria urine cx positive gram negative shon ID consulted Continue IV meropenem 6. Dementia patient is [place] resident, bed bound , demented and hard on hearing niece is surrogate decision maker She is DNR/DNI 7. Hypertension controleld resume home meds Norvasc and lisinopril 8. Anemia of chronic disease on ferrous sulfate 9. DVT prophylaxis SCD and lovenox
--- NOTE | 2016-12-07 14:31 | CP.PCM.CON ---
History of Present Illness - History of Present Illness History of Present Illness: 86 yo emale admiited with generalized abdominal pain associated with fever nausea and vomiting. Similar episode in July at which time MRCP showe gallstones in gallbladder but clear CBD. Review of Systems - Review of Systems Systems not reviewed;Unavailable: Altered Mental Status Past Patient History - Infectious Disease Hx of Infectious Diseases: None - Tetanus Immunizations Tetanus Immunization: Unknown, Allergy to Tetanus Vaccine - Past Medical History & Family History Past Medical History?: Yes - Past Social History Smoking Status: Never Smoked - CARDIAC Hx Hypertension: Yes - PULMONARY Hx Pneumonia: Yes Other/Comment: respiratory failure and h/o sepsis - NEUROLOGICAL HX Cerebrovascular Accident: Yes Hx Dementia: Yes - HEENT Hx HEENT Problems: Yes Hx Cataracts: Yes (August 2016) 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) - RENAL Hx Renal Failure: Yes - ENDOCRINE/METABOLIC Hx Endocrine Disorders: No - HEMATOLOGICAL/ONCOLOGICAL Hx Human Immunodeficiency Virus (HIV): No - INTEGUMENTARY Hx Dermatological Problems: No - MUSCULOSKELETAL/RHEUMATOLOGICAL Hx Arthritis: Yes Hx Falls: Yes Hx Fractures: Yes Hx Osteoporosis: Yes Hx Rheumatoid Arthritis: Yes - GASTROINTESTINAL Hx Gastrointestinal Disorders: Yes Hx Gastroesophageal Reflux: Yes - GENITOURINARY/GYNECOLOGICAL Hx Genitourinary Disorders: Yes - PSYCHIATRIC Hx Depression: Yes Hx Substance Use: No - SURGICAL HISTORY Hx Appendectomy: Yes Hx Cholecystectomy: Yes Other/Comment: b/l eye cataract and rt eye catarct August 2016 and rt femur fx. - ANESTHESIA Hx Anesthesia: Yes Hx Anesthesia Reactions: No Hx Malignant Hyperthermia: No Has any member of the family had a problem w/ anesthesia?: No Meds Allergies/Adverse Reactions: Allergies Allergy/AdvReac Type Severity Reaction Status Date / Time No Known Allergies Allergy Verified 07/14/16 05:57 - Medications Medications: Current Medications Acetaminophen (Tylenol 650 Mg Supp) 650 mg [place] Q6 PRN PRN Reason: Fever >100.4 F Albuterol/Ipratropium (Duoneb 3 Mg/0.5 Mg (3 Ml) Ud) 3 ml IH Q8H PRN PRN Reason: wheezing/shortness of breath Amlodipine Besylate (Norvasc) 10 mg PO DAILY [facility] Last Admin: 12/07/16 09:44 Dose: 10 mg Aspirin (Aspirin Chewable) 81 mg PO DAILY [facility] Last Admin: 12/07/16 09:44 Dose: 81 mg Atorvastatin Calcium (Lipitor) 10 mg PO HS [facility] Last Admin: 12/06/16 21:23 Dose: 10 mg Bisacodyl (Dulcolax) 10 mg [place] DAILY PRN PRN Reason: Constipation Calcium/Vitamin D (Oyster Shell Calcium/Vitamin D 500 Mg-200 Iu) 1 tab PO DAILY [facility] Last Admin: 12/07/16 09:43 Dose: 1 tab Docusate Sodium (Colace) 100 mg PO BID [facility] Last Admin: 12/07/16 09:43 Dose: 100 mg Enoxaparin Sodium (Lovenox) 30 mg SC DAILY [facility] PRN Reason: Protocol Last Admin: 12/07/16 09:43 Dose: 30 mg Ferrous Sulfate (Feosol) 325 mg PO BID [facility] Last Admin: 12/07/16 09:44 Dose: 325 mg Home Med (Difluprednate [Durezol]) 1 drop LEFTEYE BID [facility] Piperacillin Sod/Tazobactam (Sod 3.375 gm/ Sodium Chloride) 100 mls @ 100 mls/ hr IVPB Q8 [facility] Last Admin: 12/07/16 09:45 Dose: 100 mls/hr Gentamicin Sulfate/Sodium Chloride (Gentamicin 60mg/50ml Ns) 60 mg in 50 mls @ 50 mls/hr IVPB Q12 [facility] Last Admin: 12/07/16 09:45 Dose: 50 mls/hr Sodium Chloride (Sodium Chloride 0.9%) 1,000 mls @ 100 mls/hr IV .Q10H [facility] Last Admin: 12/07/16 04:15 Dose: 100 mls/hr Ketorolac Tromethamine (Toradol) 30 mg IVP Q6 PRN PRN Reason: Pain, severe (8-10) Stop: 12/11/16 20:05 Lactobacillus Acidophilus (Bacid Acidophilus) 1 cap PO BID [facility] Last Admin: 12/07/16 09:51 Dose: 1 cap Lisinopril (Zestril) 20 mg PO DAILY [facility] Last Admin: 12/07/16 09:44 Dose: 20 mg Magnesium Hydroxide (Milk Of Magnesia) 30 ml PO HS PRN PRN Reason: Constipation Morphine Sulfate (Morphine) 2 mg IVP Q6 PRN PRN Reason: Pain, severe (8-10) Pantoprazole Sodium (Protonix Ec Tab) 40 mg PO DAILY [facility] Last Admin: 12/07/16 09:43 Dose: 40 mg Physical Exam - Constitutional Appears: Non-toxic - Head Exam Head Exam: NORMAL INSPECTION - Eye Exam Eye Exam: Normal appearance - ENT Exam ENT Exam: Mucous Membranes Moist - Neck Exam Neck exam: Positive for: Normal Inspection - Respiratory Exam Respiratory Exam: Clear to Auscultation Bilateral - Cardiovascular Exam Cardiovascular Exam: REGULAR RHYTHM, +S1, +S2 - GI/Abdominal Exam GI & Abdominal Exam: Normal Bowel Sounds, Soft. absent: Tenderness Results - Vital Signs Recent Vital Signs: Last Vital Signs Temp 98.4 F 12/07/16 12:00 Pulse 69 12/07/16 12:00 Resp 20 12/07/16 12:00 BP 125/61 12/07/16 13:00 Pulse Ox 98 12/07/16 12:00 - Labs Result Diagrams: 12/07/16 09:00 12/07/16 06:01 Labs: Laboratory Results - last 24 hr 12/06/16 12/07/16 12/07/16 18:30 06:01 06:03 WBC RBC Hgb Hct MCV MCH MCHC RDW Plt Count Sodium 138 Potassium 4.2 Chloride 106 Carbon Dioxide 26 Anion Gap 10 BUN 16 Creatinine 1.0 Est GFR ( Amer) > 60 Est GFR (Non-Af Amer) 52 Random Glucose 89 Lactic Acid 0.8 Calcium 8.8 Total Bilirubin 2.1 H AST 609 H D ALT 653 H Alkaline Phosphatase 191 H Total Protein 6.1 L Albumin 3.3 L D Globulin 2.8 Albumin/Globulin Ratio 1.2 Amylase 188 H D Lipase 1897 H Procalcitonin 15.48 H 12/07/16 09:00 WBC 9.8 RBC 3.18 L Hgb 9.5 L Hct 28.4 L MCV 89.3 MCH 30.0 MCHC 33.6 RDW 13.8 Plt Count 106 L D Sodium Potassium Chloride Carbon Dioxide Anion Gap BUN Creatinine Est GFR ( Amer) Est GFR (Non-Af Amer) Random Glucose Lactic Acid Calcium Total Bilirubin AST ALT Alkaline Phosphatase Total Protein Albumin Globulin Albumin/Globulin Ratio Amylase Lipase Procalcitonin - Imaging and Cardiology CT scan - abdomen Status: Report reviewed by me Assessment & Plan (1) Gallstone pancreatitis Assessment and Plan: Elevation with rapid fall of lipase most c/w gallstone pancreatitis. Pain currently controlled with analgesics. Maintain NPO and continue IV hydration. Recheck lipase in the morning. Labs of liver more of a parenchymal pattern and may be a reflection of the pancreatitis rather than cholangitis. Status: Acute (2) UTI (urinary tract infection) Assessment and Plan: Possibly source of fever. treat with antibiotics. Status: Acute (3) Renal mass Assessment and Plan: Possible renal cell cancer. W/u as per desire of patient and/or family. Status: Acute Priority: Medium
--- NOTE | 2016-12-07 16:11 | US ---
HISTORY: gallstone pancreatitis COMPARISON: 07/14/2016 TECHNIQUE: Sonographic evaluation of the abdomen. FINDINGS: LIVER: Measures 15.3 cm. Patent portal vein. Portal venous flow: Hepatopetal. Unremarkeable echogenicity of the liver parenchyma. No mass. No intrahepatic bile duct dilatation. GALLBLADDER: Cholelithiasis. Negative study for gallbladder wall thickening, pericholecystic fluid, sonographic Leon's sign. COMMON BILE DUCT: Measures 4.2 mm. No stones. No dilatation. PANCREAS: Unremarkable as visualized. No mass. No ductal dilatation. RIGHT KIDNEY: Measures 5.1 x 9.6cm. Normal echogenicity. No calculus, mass, or hydronephrosis. LEFT KIDNEY: Measures 4.9 x 9.9cm. Normal echogenicity. No calculus, mass, or hydronephrosis. SPLEEN: Normal in size and contour. No mass. AORTA: No aneurysmal dilatation. IVC: Unremarkable. OTHER FINDINGS: None. IMPRESSION: Cholelithiasis. No sonographic evidence of acute cholecystitis. No significant interval change compared to the prior examination(s).
[2016-12-07] MEDS: Vitamins A & D Oint UD Foilpak TOP SCH (17:27)
[2016-12-07 21:56] LABS: HEPATITIS B SURFACE AG NEGATIVE (NEGATIVE)
[2016-12-07 22:02] LABS: HEPATITIS A IGM NEGATIVE (NEGATIVE); HEPATITIS B CORE AB NEGATIVE (NEGATIVE)
[2016-12-07 22:25] LABS: HEPATITIS C ANTIBODY NEGATIVE (NEGATIVE)
[2016-12-08] MEDS: Piperacillin/Tazobact 3.375 GM in Sodium Chloride 0.9% 100 ML IVPB SCH (01:57)
[2016-12-08] MEDS: Sodium Chloride 0.9% 1,000 ML IV SCH ×2 (01:57→17:01)
[2016-12-08 06:59] LABS: HEMOGLOBIN 9.1 g/dL (12.0-16.0); MEAN CELL VOLUME 89.7 fl (81.0-99.0); MEAN CORPUSCULAR HGB CONC 33.5 g/dL (33.0-37.0); RBC 3.03 Mil/uL (3.80-5.20); RED CELL DISTRIBUTION WIDTH 13.5 % (11.5-14.5); WHITE BLOOD COUNT 5.6 K/uL (4.8-10.8)
[2016-12-08 07:12] LABS: CALCIUM 8.3 mg/dL (8.4-10.2)
[2016-12-08 07:27] LABS: ALB/GLOB RATIO 1.1 (1.0-2.1)
--- NOTE | 2016-12-08 07:28 | CP.PCM.PN ---
Subjective - Date & Time of Evaluation Date of Evaluation: 12/08/16 Time of Evaluation: 07:00 - Subjective Subjective: General Surgery Progress Note for Dr. Lake Patient seen and examined at bedside. Patient was on CLD but complaining of abdominal pain after meals. Patient denies nausea/vomiting. Will make NPO. Denies fever/chills, cp, sob, palpitations. Objective - Vital Signs/Intake and Output Vital Signs (last 24 hours): Temp Pulse Resp BP Pulse Ox 98.2 F 72 18 152/63 H 98 12/08/16 05:08 12/08/16 05:08 12/08/16 05:08 12/08/16 05:08 12/08/16 05:08 Intake and Output: 12/08/16 12/08/16 06:59 18:59 Intake Total 4000 Output Total 700 Balance 3300 - Medications Medications: Current Medications Acetaminophen (Tylenol 650 Mg Supp) 650 mg [place] Q6 PRN PRN Reason: Fever >100.4 F Albuterol/Ipratropium (Duoneb 3 Mg/0.5 Mg (3 Ml) Ud) 3 ml IH Q8H PRN PRN Reason: wheezing/shortness of breath Amlodipine Besylate (Norvasc) 10 mg PO DAILY [facility] Last Admin: 12/07/16 09:44 Dose: 10 mg Aspirin (Aspirin Chewable) 81 mg PO DAILY [facility] Last Admin: 12/07/16 09:44 Dose: 81 mg Atorvastatin Calcium (Lipitor) 10 mg PO HS [facility] Last Admin: 12/07/16 21:19 Dose: 10 mg Bisacodyl (Dulcolax) 10 mg [place] DAILY PRN PRN Reason: Constipation Calcium/Vitamin D (Oyster Shell Calcium/Vitamin D 500 Mg-200 Iu) 1 tab PO DAILY [facility] Last Admin: 12/07/16 09:43 Dose: 1 tab Docusate Sodium (Colace) 100 mg PO BID [facility] Last Admin: 12/07/16 17:26 Dose: 100 mg Enoxaparin Sodium (Lovenox) 30 mg SC DAILY [facility] PRN Reason: Protocol Last Admin: 12/07/16 09:43 Dose: 30 mg Ferrous Sulfate (Feosol) 325 mg PO BID [facility] Last Admin: 12/07/16 17:27 Dose: 325 mg Home Med (Difluprednate [Durezol]) 1 drop LEFTEYE BID [facility] Piperacillin Sod/Tazobactam (Sod 3.375 gm/ Sodium Chloride) 100 mls @ 100 mls/ hr IVPB Q8 [facility] Last Admin: 12/08/16 01:57 Dose: 100 mls/hr Gentamicin Sulfate/Sodium Chloride (Gentamicin 60mg/50ml Ns) 60 mg in 50 mls @ 50 mls/hr IVPB Q12 [facility] Last Admin: 12/07/16 21:18 Dose: 50 mls/hr Sodium Chloride (Sodium Chloride 0.9%) 1,000 mls @ 100 mls/hr IV .Q10H [facility] Last Admin: 12/08/16 01:57 Dose: 100 mls/hr Ketorolac Tromethamine (Toradol) 30 mg IVP Q6 PRN PRN Reason: Pain, severe (8-10) Stop: 12/11/16 20:05 Last Admin: 12/07/16 22:09 Dose: 30 mg Lactobacillus Acidophilus (Bacid Acidophilus) 1 cap PO BID [facility] Last Admin: 12/07/16 17:27 Dose: 1 cap Lisinopril (Zestril) 20 mg PO DAILY [facility] Last Admin: 12/07/16 09:44 Dose: 20 mg Magnesium Hydroxide (Milk Of Magnesia) 30 ml PO HS PRN PRN Reason: Constipation Morphine Sulfate (Morphine) 2 mg IVP Q6 PRN PRN Reason: Pain, severe (8-10) Pantoprazole Sodium (Protonix Ec Tab) 40 mg PO DAILY [facility] Last Admin: 12/07/16 09:43 Dose: 40 mg Vitamin A (Vitamin A & D Oint Ud Foilpak) 1 ea TOP BID [facility] Last Admin: 12/07/16 17:27 Dose: 1 ea - Labs Labs: 12/08/16 06:00 12/07/16 06:01 PT 11.7 Seconds (9.8-13.1) 12/06/16 08:20 INR 1.1 (0.9-1.2) 12/06/16 08:20 APTT 27.6 Seconds (25.6-37.1) 12/06/16 08:20 - Constitutional Appears: No Acute Distress - Eye Exam Eye Exam: EOMI - Respiratory Exam Respiratory Exam: NORMAL BREATHING PATTERN - Cardiovascular Exam Cardiovascular Exam: REGULAR RHYTHM - GI/Abdominal Exam GI & Abdominal Exam: Soft, Tenderness (epigastrium). absent: Distended, Firm, Guarding, Rigid, Hernia, Rebound - Neurological Exam Neurological Exam: Alert, Awake - Psychiatric Exam Psychiatric exam: Flat Affect - Skin Skin Exam: Dry, Intact, Warm Assessment and Plan - Assessment and Plan (Free Text) Plan: 86 F with PMH of Dementia, CVA, HTN, brought from [place] for fevers and vomiting who was found to have recurrent gallstone pancreatitis -NPO this AM again because patient having abdominal pain after meals -MRCP: cholelithiass without evidence of acute cholecystitis, choledolcholithiasis, or biliary dilatation. Small pleural effusions. Bilateral renal lesions (see full report). -IVF -Monitor LFTs -Pt is a poor surgical candidate and currently DNR/DNI -No plans for surgical intervention at this time -Will MAYRA Simpson PGY1
--- NOTE | 2016-12-08 09:01 | CP.PCM.PN ---
Subjective - Date & Time of Evaluation Date of Evaluation: 12/08/16 Time of Evaluation: 08:57 - Subjective Subjective: Patient c/o epigastric abdominal pain. Was placed on diet yesterday. Objective - Vital Signs/Intake and Output Vital Signs (last 24 hours): Temp Pulse Resp BP Pulse Ox 97.6 F 65 20 158/73 H 97 12/08/16 08:00 12/08/16 08:00 12/08/16 08:00 12/08/16 08:00 12/08/16 08:00 Intake and Output: 12/08/16 12/08/16 06:59 18:59 Intake Total 4000 Output Total 700 Balance 3300 - Medications Medications: Current Medications Acetaminophen (Tylenol 650 Mg Supp) 650 mg MD Q6 PRN PRN Reason: Fever >100.4 F Albuterol/Ipratropium (Duoneb 3 Mg/0.5 Mg (3 Ml) Ud) 3 ml IH Q8H PRN PRN Reason: wheezing/shortness of breath Amlodipine Besylate (Norvasc) 10 mg PO DAILY [facility] Last Admin: 12/07/16 09:44 Dose: 10 mg Aspirin (Aspirin Chewable) 81 mg PO DAILY [facility] Last Admin: 12/07/16 09:44 Dose: 81 mg Atorvastatin Calcium (Lipitor) 10 mg PO HS [facility] Last Admin: 12/07/16 21:19 Dose: 10 mg Bisacodyl (Dulcolax) 10 mg MD DAILY PRN PRN Reason: Constipation Calcium/Vitamin D (Oyster Shell Calcium/Vitamin D 500 Mg-200 Iu) 1 tab PO DAILY [facility] Last Admin: 12/07/16 09:43 Dose: 1 tab Docusate Sodium (Colace) 100 mg PO BID [facility] Last Admin: 12/07/16 17:26 Dose: 100 mg Enoxaparin Sodium (Lovenox) 30 mg SC DAILY [facility] PRN Reason: Protocol Last Admin: 12/07/16 09:43 Dose: 30 mg Ferrous Sulfate (Feosol) 325 mg PO BID [facility] Last Admin: 12/07/16 17:27 Dose: 325 mg Home Med (Difluprednate [Durezol]) 1 drop LEFTEYE BID [facility] Piperacillin Sod/Tazobactam (Sod 3.375 gm/ Sodium Chloride) 100 mls @ 100 mls/ hr IVPB Q8 [facility] Last Admin: 12/08/16 01:57 Dose: 100 mls/hr Gentamicin Sulfate/Sodium Chloride (Gentamicin 60mg/50ml Ns) 60 mg in 50 mls @ 50 mls/hr IVPB Q12 [facility] Last Admin: 12/07/16 21:18 Dose: 50 mls/hr Sodium Chloride (Sodium Chloride 0.9%) 1,000 mls @ 100 mls/hr IV .Q10H [facility] Last Admin: 12/08/16 01:57 Dose: 100 mls/hr Ketorolac Tromethamine (Toradol) 30 mg IVP Q6 PRN PRN Reason: Pain, severe (8-10) Stop: 12/11/16 20:05 Last Admin: 12/07/16 22:09 Dose: 30 mg Lactobacillus Acidophilus (Bacid Acidophilus) 1 cap PO BID [facility] Last Admin: 12/07/16 17:27 Dose: 1 cap Lisinopril (Zestril) 20 mg PO DAILY [facility] Last Admin: 12/07/16 09:44 Dose: 20 mg Magnesium Hydroxide (Milk Of Magnesia) 30 ml PO HS PRN PRN Reason: Constipation Morphine Sulfate (Morphine) 2 mg IVP Q6 PRN PRN Reason: Pain, severe (8-10) Pantoprazole Sodium (Protonix Ec Tab) 40 mg PO DAILY [facility] Last Admin: 12/07/16 09:43 Dose: 40 mg Vitamin A (Vitamin A & D Oint Ud Foilpak) 1 ea TOP BID [facility] Last Admin: 12/07/16 17:27 Dose: 1 ea - Labs Labs: 12/08/16 06:00 12/08/16 06:00 PT 11.7 Seconds (9.8-13.1) 12/06/16 08:20 INR 1.1 (0.9-1.2) 12/06/16 08:20 APTT 27.6 Seconds (25.6-37.1) 12/06/16 08:20 - Head Exam Head Exam: ATRAUMATIC - Eye Exam Eye Exam: EOMI Pupil Exam: PERRL - ENT Exam ENT Exam: Normal Exam - Respiratory Exam Respiratory Exam: NORMAL BREATHING PATTERN - Cardiovascular Exam Cardiovascular Exam: +S1, +S2 - GI/Abdominal Exam GI & Abdominal Exam: Soft, Tenderness, Normal Bowel Sounds Additional comments: moderate midabdominal tenderness Assessment and Plan (1) Gallstone pancreatitis Assessment & Plan: Labs are impoving though patient now having pain. Revert back to NPO status for today. Patient's pain appears to respond to current analgesic regimen. IV fluids. Status: Acute (2) UTI (urinary tract infection) Status: Acute (3) Renal mass Status: Acute
[2016-12-08] MEDS: Pantoprazole 40 mg EC Tab PO SCH (09:48)
--- NOTE | 2016-12-08 09:48 | CP.PCM.PN ---
Subjective - Date & Time of Evaluation Date of Evaluation: 12/08/16 Time of Evaluation: 09:00 - Subjective Subjective: Patient seen and examined bedside. Complains of abdominal pain localized over suprapubic and epigastric area. Moaning in pain.Was placed back to NPO due to increased abdominal pain early this AM Hemodynamically stable, afebrile, BP 158/73 HR 65 LFT-s and bilirubin trending down urine cx positive for ESBL E.Coli states that has not had a BM for 5 days Niece requesting to talk with SW requesting different NH Objective - Vital Signs/Intake and Output Vital Signs (last 24 hours): Temp Pulse Resp BP Pulse Ox 97.6 F 65 20 158/73 H 97 12/08/16 08:00 12/08/16 08:00 12/08/16 08:00 12/08/16 08:00 12/08/16 08:00 Intake and Output: 12/08/16 12/08/16 06:59 18:59 Intake Total 4000 Output Total 700 Balance 3300 - Medications Medications: Current Medications Acetaminophen (Tylenol 650 Mg Supp) 650 mg IN Q6 PRN PRN Reason: Fever >100.4 F Albuterol/Ipratropium (Duoneb 3 Mg/0.5 Mg (3 Ml) Ud) 3 ml IH Q8H PRN PRN Reason: wheezing/shortness of breath Amlodipine Besylate (Norvasc) 10 mg PO DAILY [facility] Last Admin: 12/07/16 09:44 Dose: 10 mg Aspirin (Aspirin Chewable) 81 mg PO DAILY [facility] Last Admin: 12/07/16 09:44 Dose: 81 mg Atorvastatin Calcium (Lipitor) 10 mg PO HS [facility] Last Admin: 12/07/16 21:19 Dose: 10 mg Bisacodyl (Dulcolax) 10 mg IN DAILY PRN PRN Reason: Constipation Calcium/Vitamin D (Oyster Shell Calcium/Vitamin D 500 Mg-200 Iu) 1 tab PO DAILY [facility] Last Admin: 12/07/16 09:43 Dose: 1 tab Docusate Sodium (Colace) 100 mg PO BID [facility] Last Admin: 12/07/16 17:26 Dose: 100 mg Enoxaparin Sodium (Lovenox) 30 mg SC DAILY [facility] PRN Reason: Protocol Last Admin: 12/07/16 09:43 Dose: 30 mg Ferrous Sulfate (Feosol) 325 mg PO BID [facility] Last Admin: 12/07/16 17:27 Dose: 325 mg Home Med (Difluprednate [Durezol]) 1 drop LEFTEYE BID [facility] Sodium Chloride (Sodium Chloride 0.9%) 1,000 mls @ 100 mls/hr IV .Q10H [facility] Last Admin: 12/08/16 01:57 Dose: 100 mls/hr Meropenem 1 gm/ Sodium (Chloride) 100 mls @ 100 mls/hr IVPB Q12 [facility] Ketorolac Tromethamine (Toradol) 30 mg IVP Q6 PRN PRN Reason: Pain, severe (8-10) Stop: 12/11/16 20:05 Last Admin: 12/08/16 09:00 Dose: 30 mg Lactobacillus Acidophilus (Bacid Acidophilus) 1 cap PO BID [facility] Last Admin: 12/07/16 17:27 Dose: 1 cap Lisinopril (Zestril) 20 mg PO DAILY [facility] Last Admin: 12/07/16 09:44 Dose: 20 mg Magnesium Hydroxide (Milk Of Magnesia) 30 ml PO HS PRN PRN Reason: Constipation Morphine Sulfate (Morphine) 2 mg IVP Q6 PRN PRN Reason: Pain, severe (8-10) Pantoprazole Sodium (Protonix Ec Tab) 40 mg PO DAILY [facility] Last Admin: 12/07/16 09:43 Dose: 40 mg Vitamin A (Vitamin A & D Oint Ud Foilpak) 1 ea TOP BID [facility] Last Admin: 12/07/16 17:27 Dose: 1 ea - Labs Labs: 12/08/16 06:00 12/08/16 06:00 PT 11.7 Seconds (9.8-13.1) 12/06/16 08:20 INR 1.1 (0.9-1.2) 12/06/16 08:20 APTT 27.6 Seconds (25.6-37.1) 12/06/16 08:20 - Constitutional Appears: Non-toxic, No Acute Distress - Head Exam Head Exam: ATRAUMATIC, NORMOCEPHALIC - Eye Exam Eye Exam: EOMI, Normal appearance, PERRL Pupil Exam: NORMAL ACCOMODATION Additional comments: right eye dressing present , Salo, normal accommodation , no erythema - ENT Exam ENT Exam: Mucous Membranes Moist, Normal Exam - Neck Exam Neck Exam: Full ROM, Normal Inspection - Respiratory Exam Respiratory Exam: Clear to Ausculation Bilateral. absent: Rales, Rhonchi, Wheezes - Cardiovascular Exam Cardiovascular Exam: REGULAR RHYTHM, RRR, +S1, +S2. absent: JVD - GI/Abdominal Exam GI & Abdominal Exam: Soft, Normal Bowel Sounds. absent: Distended, Guarding, Rebound Additional comments: soft abdominal wall hernia beneath the umbilicus - Rectal Exam Rectal Exam: Deferred - Extremities Exam Extremities Exam: Full ROM, Normal Capillary Refill, Normal Inspection. absent : Pedal Edema - Neurological Exam Neurological Exam: Alert, Awake, CN II-XII Intact Additional comments: mild dementia, pleasant, follows commands, answering questions - Psychiatric Exam Psychiatric exam: Anxious - Skin Skin Exam: Dry, Pallor, Warm Assessment and Plan - Assessment and Plan (Free Text) Assessment: 86 year old female ,[place] resident with PMH of dementia, HTN, arthritis,history of respiratory failure, CVA,history of brain aneurismal repair ,brought to ER for fever, abdominal pain , nausea and vomiting .As per assisted and EMS notes patient had fever 101 and was having bilious vomiting. In ER found to be febrile Tmax 104 , WBC 11.5 elevated lipase 4799 AST/ALt 1676/743 CT abdomen and pelvis showed : No acute pathology. Increasing enhancing lesions in the kidneys bilaterally suspicious for renal cell carcinoma. Cholelithiasis. Colonic diverticulosis Patient had a recent admission july 2016 for acute cholecystitis with cholelithiasis , gallstone pancreatitis UTI and was treated medically. 1. Sepsis Most likely secondary to ESBL E.Coli in urine and gallstone pancreatitis . cholecystitis ruled out by US, MRCP and CT abdomen LFT-s and lipase trending down , AST/ALT 193/385 hunter 0.9 lipase 794 patient clinically improving , WBC 5.6 K Continue IVF Changed to IV Meropenem Iv D/c Zosyn and Gentamycin Blood cx with no growth so far ID, surgery and GI consulted Abd US showed cholelithiasis with no evidence of cholecystitis MRCP showed no CBD stone, no cholecystitis CT abdomen showed cholelithiasis but no cholecystitis 2. Acute gallstone pancreatitis LFT-s and lipase trending down MRCP showed no CBD stone will start liquid diet and advance slowly if tolerated Continue IVF , pain management GI and surgery eval appreciated 3. Transaminitis Most likely secondary to gallstone pancreatitis Hepatitis profile - normal Abd US showed cholelithiasis but no cholecystitis MRCP showed no CBD stone Advance diet slowly 4. Cholelithiasis with no cholecystitis on IV Meropenem, zosyn and genta Surgery and ID eval Abd US showed no cholecystitis 5. UTI secondary to ESBL E.Coli ID consulted Started Meropenem D/c Genta and Zosyn 6. Dementia patient is NH resident, bed bound , mild dementia and hard on hearing niece is surrogate decision maker She is DNR/DNI niece requesting change of NH 7. Hypertension controlled resume home meds Norvasc and lisinopril 8. Anemia of chronic disease on ferrous sulfate 9. Reducible abdominal wall hernia inferior to umbilicus no surgical intervention 10. DVT prophylaxis SCD and lovenox
[2016-12-08] MEDS: Vitamins A & D Oint UD Foilpak TOP SCH ×2 (09:49→17:04)
[2016-12-08] MEDS: Calcium-Vit D 500 mg-200 Units Tab UD PO SCH (09:49)
[2016-12-08] MEDS: Enoxaparin 30 mg Syringe SC SCH (09:50)
[2016-12-08] MEDS: Lactobacillus Acidophilus 500 MU Cap PO SCH ×2 (09:53→17:04)
--- NOTE | 2016-12-08 10:08 | MRI ---
PROCEDURE: Magnetic Resonance Cholangiopancreatography HISTORY: COMPARISON: Abdomen and pelvis CT with contrast 12/06/2016 . TECHNIQUE: Multiplanar, multisequence MR images of the abdomen were obtained, including heavily T2 weighted MRCP images of the biliary system. Rotating maximum intensity projection images of the biliary system were generated. FINDINGS: MRCP: The common bile duct is of a normal caliber, measuring 5.5 mm greatest dimension. No evidence of choledocholithiasis. No intrahepatic biliary ductal dilatation. Pancreatic duct measures 2.5 mm LIVER: Unremarkable. GALLBLADDER: The gallbladder again appears distended with numerous calculi layering at the dependent portion. No definite mural thickening or pericholecystic fluid collection related. SPLEEN: Unremarkable. PANCREAS: No definitive soft tissue lesion is identified with the pancreatic duct approaching upper limits normal caliber 2.5 mm. ADRENALS: Unremarkable. KIDNEYS: Small exophytic lesions are seen at the mid to lower pole right and lower pole left lesion with a 1 in each kidney measuring 1.9 cm at the right and 1.4 cm of the left suspicious for small masses. There better defined in the prior and pelvis CT 12/06/2016 as well as an ultrasound exam 12/07/2016 due to motion artifacts in the current MR exam. AORTA: No aneurysm. ASCITES: None. OTHER FINDINGS: Incidental note is made of small bilateral pleural effusions. IMPRESSION: 1. Normal caliber common bile duct as well as intrahepatic bile ducts. The pancreatic duct is upper limits normal caliber 2.5 mm. No choledocholithiasis. 2. Extensive cholelithiasis identified within distended gallbladder which is otherwise unremarkable appearing. 3. Small bilateral renal lesions are identified which are better defined on the prior ultrasound exam 12/07/[address] 12/06/2016. There remains suspicious appearing with malignancy not excluded once again. 4. Incidental small bilateral pleural effusions identified.
[2016-12-08] MEDS: Meropenem 1 GM in Sodium Chloride 0.9% 100 ML IVPB SCH ×2 (11:01→20:26)
[2016-12-08] MEDS: Artificial Tears Opht Soln OS SCH (17:02)
[2016-12-09] MEDS: Artificial Tears Opht Soln OS SCH ×3 (00:15→17:31)
[2016-12-09] MEDS: Sodium Chloride 0.9% 1,000 ML IV SCH ×3 (04:47→17:33)
--- NOTE | 2016-12-09 07:13 | CP.PCM.PN ---
Subjective - Date & Time of Evaluation Date of Evaluation: 12/09/16 Time of Evaluation: 06:45 - Subjective Subjective: General Surgery Progress Note for Dr. Lake Patient seen and examined at bedside. No acute event overnight. Patient still complaining of abdominal pain but denies nausea/vomiting. Patient is on FLD and states she has been drinking water. Denies fever/chills, cp, sob, palpitations. Objective - Vital Signs/Intake and Output Vital Signs (last 24 hours): Temp Pulse Resp BP Pulse Ox 98.3 F 89 20 165/76 H 99 12/09/16 04:58 12/09/16 04:58 12/09/16 04:58 12/09/16 04:58 12/09/16 04:58 - Medications Medications: Current Medications Acetaminophen (Tylenol 650 Mg Supp) 650 mg AL Q6 PRN PRN Reason: Fever >100.4 F Albuterol/Ipratropium (Duoneb 3 Mg/0.5 Mg (3 Ml) Ud) 3 ml IH Q8H PRN PRN Reason: wheezing/shortness of breath Amlodipine Besylate (Norvasc) 10 mg PO DAILY [facility] Last Admin: 12/08/16 09:49 Dose: 10 mg Artificial Tears (Artificial Tears) 2 drop OS Q8 [facility] Last Admin: 12/09/16 00:15 Dose: 2 drop Aspirin (Aspirin Chewable) 81 mg PO DAILY [facility] Last Admin: 12/08/16 09:48 Dose: 81 mg Atorvastatin Calcium (Lipitor) 10 mg PO HS [facility] Last Admin: 12/08/16 21:41 Dose: 10 mg Bisacodyl (Dulcolax) 10 mg AL DAILY PRN PRN Reason: Constipation Calcium/Vitamin D (Oyster Shell Calcium/Vitamin D 500 Mg-200 Iu) 1 tab PO DAILY [facility] Last Admin: 12/08/16 09:49 Dose: 1 tab Docusate Sodium (Colace) 100 mg PO BID [facility] Last Admin: 12/08/16 17:03 Dose: 100 mg Enoxaparin Sodium (Lovenox) 30 mg SC DAILY [facility] PRN Reason: Protocol Last Admin: 12/08/16 09:50 Dose: 30 mg Ferrous Sulfate (Feosol) 325 mg PO BID [facility] Last Admin: 12/08/16 17:03 Dose: 325 mg Sodium Chloride (Sodium Chloride 0.9%) 1,000 mls @ 100 mls/hr IV .Q10H [facility] Last Admin: 12/09/16 04:47 Dose: 100 mls/hr Meropenem 1 gm/ Sodium (Chloride) 100 mls @ 100 mls/hr IVPB Q12 [facility] Last Admin: 12/08/16 20:26 Dose: 100 mls/hr Ketorolac Tromethamine (Toradol) 30 mg IVP Q6 PRN PRN Reason: Pain, severe (8-10) Stop: 12/11/16 20:05 Last Admin: 12/08/16 09:00 Dose: 30 mg Lactobacillus Acidophilus (Bacid Acidophilus) 1 cap PO BID [facility] Last Admin: 12/08/16 17:04 Dose: 1 cap Lactulose (Enulose) 20 gm PO DAILY PRN PRN Reason: Constipation Last Admin: 12/08/16 17:04 Dose: 20 gm Lisinopril (Zestril) 20 mg PO DAILY [facility] Last Admin: 12/08/16 09:49 Dose: 20 mg Magnesium Hydroxide (Milk Of Magnesia) 30 ml PO HS PRN PRN Reason: Constipation Morphine Sulfate (Morphine) 2 mg IVP Q6 PRN PRN Reason: Pain, severe (8-10) Last Admin: 12/08/16 13:53 Dose: 2 mg Pantoprazole Sodium (Protonix Ec Tab) 40 mg PO DAILY [facility] Last Admin: 12/08/16 09:48 Dose: 40 mg Vitamin A (Vitamin A & D Oint Ud Foilpak) 1 ea TOP BID [facility] Last Admin: 12/08/16 17:04 Dose: 1 ea - Labs Labs: 12/08/16 06:00 12/08/16 06:00 PT 11.7 Seconds (9.8-13.1) 12/06/16 08:20 INR 1.1 (0.9-1.2) 12/06/16 08:20 APTT 27.6 Seconds (25.6-37.1) 12/06/16 08:20 - Constitutional Appears: No Acute Distress - Head Exam Head Exam: NORMOCEPHALIC - Respiratory Exam Respiratory Exam: NORMAL BREATHING PATTERN - Cardiovascular Exam Cardiovascular Exam: REGULAR RHYTHM - GI/Abdominal Exam GI & Abdominal Exam: Soft, Tenderness (epigastric). absent: Distended, Firm, Guarding, Rigid, Rebound - Neurological Exam Neurological Exam: Alert, Awake - Psychiatric Exam Psychiatric exam: Flat Affect - Skin Skin Exam: Dry, Intact, Warm Assessment and Plan - Assessment and Plan (Free Text) Plan: 86 F with PMH of Dementia, CVA, HTN, brought from [place] for fevers and vomiting who was found to have recurrent gallstone pancreatitis -MRCP: cholelithiass without evidence of acute cholecystitis, choledolcholithiasis, or biliary dilatation. Small pleural effusions. Bilateral renal lesions (see full report). -IVF -LFTs downtrending -Pt is a poor surgical candidate and currently DNR/DNI -No plans for surgical intervention at this time -Will MAYRA Simpson PGY1
[2016-12-09] MEDS: Lactobacillus Acidophilus 500 MU Cap PO SCH ×2 (09:27→17:31)
[2016-12-09] MEDS: Meropenem 1 GM in Sodium Chloride 0.9% 100 ML IVPB SCH ×2 (09:28→20:05)
[2016-12-09] MEDS: Calcium-Vit D 500 mg-200 Units Tab UD PO SCH (09:30)
[2016-12-09] MEDS: Enoxaparin 30 mg Syringe SC SCH (09:30)
[2016-12-09] MEDS: Pantoprazole 40 mg EC Tab PO SCH (09:31)
[2016-12-09] MEDS: Vitamins A & D Oint UD Foilpak TOP SCH ×2 (09:32→17:31)
--- NOTE | 2016-12-09 11:30 | CP.PCM.PN ---
Subjective - Date & Time of Evaluation Date of Evaluation: 12/09/16 Time of Evaluation: 10:30 - Subjective Subjective: Pt seen and examined - niece at bedside Pt vomited this am after she had Liquid diet No fever \denies CP no SOB abd pain better Objective - Vital Signs/Intake and Output Vital Signs (last 24 hours): Temp Pulse Resp BP Pulse Ox 98.2 F 81 20 163/73 H 98 12/09/16 08:00 12/09/16 09:31 12/09/16 08:00 12/09/16 09:31 12/09/16 08:00 - Medications Medications: Current Medications Acetaminophen (Tylenol 650 Mg Supp) 650 mg OR Q6 PRN PRN Reason: Fever >100.4 F Albuterol/Ipratropium (Duoneb 3 Mg/0.5 Mg (3 Ml) Ud) 3 ml IH Q8H PRN PRN Reason: wheezing/shortness of breath Amlodipine Besylate (Norvasc) 10 mg PO DAILY [facility] Last Admin: 12/09/16 09:31 Dose: 10 mg Artificial Tears (Artificial Tears) 2 drop OS Q8 [facility] Last Admin: 12/09/16 09:28 Dose: 2 drop Aspirin (Aspirin Chewable) 81 mg PO DAILY [facility] Last Admin: 12/09/16 09:27 Dose: 81 mg Atorvastatin Calcium (Lipitor) 10 mg PO HS [facility] Last Admin: 12/08/16 21:41 Dose: 10 mg Bisacodyl (Dulcolax) 10 mg OR DAILY PRN PRN Reason: Constipation Calcium/Vitamin D (Oyster Shell Calcium/Vitamin D 500 Mg-200 Iu) 1 tab PO DAILY [facility] Last Admin: 12/09/16 09:30 Dose: 1 tab Docusate Sodium (Colace) 100 mg PO BID [facility] Last Admin: 12/09/16 09:27 Dose: 100 mg Enoxaparin Sodium (Lovenox) 30 mg SC DAILY [facility] PRN Reason: Protocol Last Admin: 12/09/16 09:30 Dose: 30 mg Ferrous Sulfate (Feosol) 325 mg PO BID [facility] Last Admin: 12/09/16 09:27 Dose: 325 mg Sodium Chloride (Sodium Chloride 0.9%) 1,000 mls @ 100 mls/hr IV .Q10H [facility] Last Admin: 12/09/16 04:47 Dose: 100 mls/hr Meropenem 1 gm/ Sodium (Chloride) 100 mls @ 100 mls/hr IVPB Q12 [facility] Last Admin: 12/09/16 09:28 Dose: 100 mls/hr Ketorolac Tromethamine (Toradol) 30 mg IVP Q6 PRN PRN Reason: Pain, severe (8-10) Stop: 12/11/16 20:05 Last Admin: 12/08/16 09:00 Dose: 30 mg Lactobacillus Acidophilus (Bacid Acidophilus) 1 cap PO BID [facility] Last Admin: 12/09/16 09:27 Dose: 1 cap Lactulose (Enulose) 20 gm PO DAILY PRN PRN Reason: Constipation Last Admin: 12/08/16 17:04 Dose: 20 gm Lisinopril (Zestril) 20 mg PO DAILY [facility] Last Admin: 12/09/16 09:28 Dose: 20 mg Magnesium Hydroxide (Milk Of Magnesia) 30 ml PO HS PRN PRN Reason: Constipation Morphine Sulfate (Morphine) 2 mg IVP Q6 PRN PRN Reason: Pain, severe (8-10) Last Admin: 12/08/16 13:53 Dose: 2 mg Pantoprazole Sodium (Protonix Ec Tab) 40 mg PO DAILY [facility] Last Admin: 12/09/16 09:31 Dose: 40 mg Vitamin A (Vitamin A & D Oint Ud Foilpak) 1 ea TOP BID [facility] Last Admin: 12/09/16 09:32 Dose: 1 ea - Labs Labs: 12/08/16 06:00 12/08/16 06:00 PT 11.7 Seconds (9.8-13.1) 12/06/16 08:20 INR 1.1 (0.9-1.2) 12/06/16 08:20 APTT 27.6 Seconds (25.6-37.1) 12/06/16 08:20 - Constitutional Appears: No Acute Distress, Chronically Ill - Head Exam Head Exam: NORMAL INSPECTION, NORMOCEPHALIC - Eye Exam Eye Exam: EOMI, Normal appearance Pupil Exam: NORMAL ACCOMODATION - ENT Exam ENT Exam: Mucous Membranes Dry, Normal External Ear Exam - Neck Exam Neck Exam: Full ROM. absent: Meningismus - Respiratory Exam Respiratory Exam: NORMAL BREATHING PATTERN. absent: Respiratory Distress - Cardiovascular Exam Cardiovascular Exam: REGULAR RHYTHM, +S1, +S2 - GI/Abdominal Exam GI & Abdominal Exam: Soft, Tenderness, Normal Bowel Sounds Additional comments: umbilical hernia - Extremities Exam Extremities Exam: Normal Capillary Refill. absent: Calf Tenderness - Back Exam Back Exam: absent: CVA tenderness (L), CVA tenderness (R) - Neurological Exam Neurological Exam: Alert, Awake Additional comments: oriented to person and place - Psychiatric Exam Psychiatric exam: Normal Affect, Normal Mood - Skin Skin Exam: Dry, Normal Color, Warm Assessment and Plan - Assessment and Plan (Free Text) Assessment: 86 year old female ,[place] resident with PMH of dementia, HTN, arthritis,history of respiratory failure, CVA,history of brain aneurysmal repair ,brought to ER for fever, abdominal pain , nausea and vomiting . As per alf and EMS notes patient had fever 101 and was having bilious vomiting. In ER found to be febrile Tmax 104 , WBC 11.5 elevated lipase 4799 AST/ALt 1676/743 CT abdomen and pelvis showed : No acute pathology. Increasing enhancing lesions in the kidneys bilaterally suspicious for renal cell carcinoma. Cholelithiasis. Colonic diverticulosis Patient had a recent admission july 2016 for acute cholecystitis with cholelithiasis , gallstone pancreatitis UTI and was treated medically. 1. Sepsis Most likely secondary to ESBL E.Coli in urine and gallstone pancreatitis . cholecystitis ruled out by US, MRCP and CT abdomen LFT-s and lipase trending down patient clinically improving , WBC 5.6 K Continue IVF Cont IV Meropenem D/c Zosyn and Gentamycin Blood cx with no growth so far ID, surgery and GI consulted Abd US showed cholelithiasis with no evidence of cholecystitis MRCP showed no CBD stone, no cholecystitis CT abdomen showed cholelithiasis but no cholecystitis 2. Acute gallstone pancreatitis LFT-s and lipase trending down MRCP showed no CBD stone Continue IVF , pain management GI and surgery eval - manage conservatively , no surgery as pt is a poor candidate Vomited this am - did not tolerate Clear liquid diet 3. Transaminitis Most likely secondary to gallstone pancreatitis Hepatitis profile - normal Abd US showed cholelithiasis but no cholecystitis MRCP showed no CBD stone Advance diet slowly 4. Cholelithiasis with no cholecystitis on IV Meropenem, zosyn and genta Abd US showed no cholecystitis Surgery consulted- no plans for Surgery as pt is a poor candidate 5. UTI secondary to ESBL E.Coli ID consulted Started Meropenem D/c Genta and Zosyn 6. Dementia patient is [place] resident, bed bound , mild dementia and hard on hearing niece is surrogate decision maker She is DNR/DNI niece requesting change of NH- SW working on this 7. Hypertension controlled resume home meds Norvasc and lisinopril 8. Anemia of chronic disease on ferrous sulfate 9. Reducible abdominal wall hernia inferior to umbilicus no surgical intervention 10. DVT prophylaxis SCD and lovenox
--- NOTE | 2016-12-09 18:06 | CP.PCM.PN ---
Subjective - Date & Time of Evaluation Date of Evaluation: 12/09/16 Time of Evaluation: 18:02 - Subjective Subjective: Patient appears comfortable. Sleepy when I evaluated her. Objective - Vital Signs/Intake and Output Vital Signs (last 24 hours): Temp Pulse Resp BP Pulse Ox 98.6 F 71 20 129/68 97 12/09/16 15:53 12/09/16 15:53 12/09/16 15:53 12/09/16 15:53 12/09/16 15:53 - Medications Medications: Current Medications Acetaminophen (Tylenol 650 Mg Supp) 650 mg [place] Q6 PRN PRN Reason: Fever >100.4 F Albuterol/Ipratropium (Duoneb 3 Mg/0.5 Mg (3 Ml) Ud) 3 ml IH Q8H PRN PRN Reason: wheezing/shortness of breath Amlodipine Besylate (Norvasc) 10 mg PO DAILY [facility] Last Admin: 12/09/16 09:31 Dose: 10 mg Artificial Tears (Artificial Tears) 2 drop OS Q8 [facility] Last Admin: 12/09/16 17:31 Dose: 2 drop Aspirin (Aspirin Chewable) 81 mg PO DAILY [facility] Last Admin: 12/09/16 09:27 Dose: 81 mg Atorvastatin Calcium (Lipitor) 10 mg PO HS [facility] Last Admin: 12/08/16 21:41 Dose: 10 mg Bisacodyl (Dulcolax) 10 mg OK DAILY PRN PRN Reason: Constipation Calcium/Vitamin D (Oyster Shell Calcium/Vitamin D 500 Mg-200 Iu) 1 tab PO DAILY [facility] Last Admin: 12/09/16 09:30 Dose: 1 tab Docusate Sodium (Colace) 100 mg PO BID [facility] Last Admin: 12/09/16 17:32 Dose: 100 mg Enoxaparin Sodium (Lovenox) 30 mg SC DAILY [facility] PRN Reason: Protocol Last Admin: 12/09/16 09:30 Dose: 30 mg Ferrous Sulfate (Feosol) 325 mg PO BID [facility] Last Admin: 12/09/16 17:32 Dose: 325 mg Sodium Chloride (Sodium Chloride 0.9%) 1,000 mls @ 100 mls/hr IV .Q10H [facility] Last Admin: 12/09/16 17:33 Dose: 100 mls/hr Meropenem 1 gm/ Sodium (Chloride) 100 mls @ 100 mls/hr IVPB Q12 [facility] Last Admin: 12/09/16 09:28 Dose: 100 mls/hr Ketorolac Tromethamine (Toradol) 30 mg IVP Q6 PRN PRN Reason: Pain, severe (8-10) Stop: 12/11/16 20:05 Last Admin: 12/08/16 09:00 Dose: 30 mg Lactobacillus Acidophilus (Bacid Acidophilus) 1 cap PO BID [facility] Last Admin: 12/09/16 17:31 Dose: 1 cap Lactulose (Enulose) 20 gm PO DAILY PRN PRN Reason: Constipation Last Admin: 12/08/16 17:04 Dose: 20 gm Lisinopril (Zestril) 20 mg PO DAILY [facility] Last Admin: 12/09/16 09:28 Dose: 20 mg Magnesium Hydroxide (Milk Of Magnesia) 30 ml PO HS PRN PRN Reason: Constipation Morphine Sulfate (Morphine) 2 mg IVP Q6 PRN PRN Reason: Pain, severe (8-10) Last Admin: 12/08/16 13:53 Dose: 2 mg Pantoprazole Sodium (Protonix Ec Tab) 40 mg PO DAILY [facility] Last Admin: 12/09/16 09:31 Dose: 40 mg Vitamin A (Vitamin A & D Oint Ud Foilpak) 1 ea TOP BID [facility] Last Admin: 12/09/16 17:31 Dose: 1 ea - Labs Labs: 12/08/16 06:00 12/08/16 06:00 PT 11.7 Seconds (9.8-13.1) 12/06/16 08:20 INR 1.1 (0.9-1.2) 12/06/16 08:20 APTT 27.6 Seconds (25.6-37.1) 12/06/16 08:20 - Head Exam Head Exam: ATRAUMATIC - Eye Exam Eye Exam: Normal appearance Pupil Exam: PERRL - ENT Exam ENT Exam: Normal Exam - Neck Exam Neck Exam: Full ROM - Respiratory Exam Respiratory Exam: Clear to Ausculation Bilateral - Cardiovascular Exam Cardiovascular Exam: REGULAR RHYTHM - GI/Abdominal Exam GI & Abdominal Exam: Soft, Normal Bowel Sounds. absent: Tenderness Assessment and Plan (1) Gallstone pancreatitis Assessment & Plan: Tolerating current diet and appears comfortable. MRCP shows no CBD dilation or stones however multiple gallbladdder stones. Labs already ordered for the morning which will help clarify if she is continuing to recover from the gallstone pancreatitis Status: Acute (2) UTI (urinary tract infection) Status: Acute (3) Renal mass Status: Acute
[2016-12-10] MEDS: Artificial Tears Opht Soln OS SCH ×3 (00:32→16:49)
[2016-12-10 04:51] VITALS: RESP 20
[2016-12-10 05:15] LABS: BASO % 0.3 % (0.0-2.0); EOS % 0.3 % (0.0-4.0); HEMOGLOBIN 10.2 g/dL (12.0-16.0); LYMPH # 1.1 K/uL (1.0-4.3); LYMPH % 26.9 % (20.0-40.0); MEAN CELL VOLUME 88.9 fl (81.0-99.0); MEAN CORPUSCULAR HEMOGLOBIN 29.7 pg (27.0-31.0); MEAN CORPUSCULAR HGB CONC 33.4 g/dL (33.0-37.0); MEAN PLATELET VOLUME 9.5 fl (7.2-11.7); MONO # 0.6 K/uL (0.0-0.8); MONO % 14.3 % (0.0-10.0); NEUT # 2.4 K/uL (1.8-7.0); NEUT % 58.2 % (50.0-75.0); RBC 3.42 Mil/uL (3.80-5.20); RED CELL DISTRIBUTION WIDTH 13.3 % (11.5-14.5); WHITE BLOOD COUNT 4.2 K/uL (4.8-10.8)
[2016-12-10 05:31] LABS: ALB/GLOB RATIO 1.1 (1.0-2.1); ALBUMIN 3.1 g/dL (3.5-5.0); ALT/SGPT 201 U/L (9-52); AST/SGOT 50 U/L (14-36); BLOOD UREA NITROGEN 9 mg/dl (7-17); CALCIUM 8.4 mg/dL (8.4-10.2); GFR AFRICAN-AMERICAN > 60; GFR NON-AFRICAN AMERICAN > 60; LIPASE 213 U/L (23-300)
[2016-12-10] MEDS ORDERED: Potassium Chl 20 mEq in NS 1,000 ML IV SCH (08:24)
[2016-12-10] MEDS: Enoxaparin 30 mg Syringe SC SCH (08:48)
[2016-12-10] MEDS: Calcium-Vit D 500 mg-200 Units Tab UD PO SCH (08:49)
[2016-12-10] MEDS: Vitamins A & D Oint UD Foilpak TOP SCH ×2 (08:49→16:49)
[2016-12-10] MEDS: Pantoprazole 40 mg EC Tab PO SCH (08:49)
[2016-12-10] MEDS: Meropenem 1 GM in Sodium Chloride 0.9% 100 ML IVPB SCH (08:52)
[2016-12-10] MEDS: Lactobacillus Acidophilus 500 MU Cap PO SCH ×2 (08:52→16:49)
--- NOTE | 2016-12-10 14:02 | CP.PCM.PN ---
Subjective - Date & Time of Evaluation Date of Evaluation: 12/10/16 Time of Evaluation: 13:59 - Subjective Subjective: Surgery for Dr. Lake Pt s&ginny DUGGAN. Denies F/C/N/V/D/CP/SOB. Pain controlled. TOlerating diet. Objective - Vital Signs/Intake and Output Vital Signs (last 24 hours): Temp Pulse Resp BP Pulse Ox 99 F 71 20 142/61 96 12/10/16 12:00 12/10/16 12:00 12/10/16 12:00 12/10/16 12:00 12/10/16 12:00 Intake and Output: 12/10/16 12/10/16 06:59 18:59 Intake Total 4000 Output Total 2700 Balance 1300 - Medications Medications: Current Medications Acetaminophen (Tylenol 650 Mg Supp) 650 mg DC Q6 PRN PRN Reason: Fever >100.4 F Albuterol/Ipratropium (Duoneb 3 Mg/0.5 Mg (3 Ml) Ud) 3 ml IH Q8H PRN PRN Reason: wheezing/shortness of breath Amlodipine Besylate (Norvasc) 10 mg PO DAILY [facility] Last Admin: 12/10/16 08:48 Dose: 10 mg Artificial Tears (Artificial Tears) 2 drop OS Q8 [facility] Last Admin: 12/10/16 08:47 Dose: 2 drop Aspirin (Aspirin Chewable) 81 mg PO DAILY [facility] Last Admin: 12/10/16 08:47 Dose: 81 mg Atorvastatin Calcium (Lipitor) 10 mg PO HS [facility] Last Admin: 12/09/16 21:18 Dose: 10 mg Bisacodyl (Dulcolax) 10 mg DC DAILY PRN PRN Reason: Constipation Calcium/Vitamin D (Oyster Shell Calcium/Vitamin D 500 Mg-200 Iu) 1 tab PO DAILY [facility] Last Admin: 12/10/16 08:49 Dose: 1 tab Docusate Sodium (Colace) 100 mg PO BID [facility] Last Admin: 12/10/16 08:47 Dose: 100 mg Ferrous Sulfate (Feosol) 325 mg PO BID [facility] Last Admin: 12/10/16 08:48 Dose: 325 mg Meropenem 1 gm/ Sodium (Chloride) 100 mls @ 100 mls/hr IVPB Q12 [facility] Last Admin: 12/10/16 08:52 Dose: 100 mls/hr Potassium Chloride/Sodium Chloride (Potassium Chl 20 Meq In Ns) 1,000 mls @ 99.01 mls/hr IV .Q10H6M [facility] Stop: 12/11/16 04:35 Last Admin: 12/10/16 10:53 Dose: 99.01 mls/hr Ketorolac Tromethamine (Toradol) 30 mg IVP Q6 PRN PRN Reason: Pain, severe (8-10) Stop: 12/11/16 20:05 Last Admin: 12/10/16 08:52 Dose: 30 mg Lactobacillus Acidophilus (Bacid Acidophilus) 1 cap PO BID [facility] Last Admin: 12/10/16 08:52 Dose: 1 cap Lactulose (Enulose) 20 gm PO DAILY PRN PRN Reason: Constipation Last Admin: 12/08/16 17:04 Dose: 20 gm Lisinopril (Zestril) 20 mg PO DAILY [facility] Last Admin: 12/10/16 08:49 Dose: 20 mg Magnesium Hydroxide (Milk Of Magnesia) 30 ml PO HS PRN PRN Reason: Constipation Morphine Sulfate (Morphine) 2 mg IVP Q6 PRN PRN Reason: Pain, severe (8-10) Last Admin: 12/08/16 13:53 Dose: 2 mg Pantoprazole Sodium (Protonix Ec Tab) 40 mg PO DAILY [facility] Last Admin: 12/10/16 08:49 Dose: 40 mg Vitamin A (Vitamin A & D Oint Ud Foilpak) 1 ea TOP BID [facility] Last Admin: 12/10/16 08:49 Dose: 1 ea - Labs Labs: 12/10/16 04:30 12/10/16 04:30 PT 11.7 Seconds (9.8-13.1) 12/06/16 08:20 INR 1.1 (0.9-1.2) 12/06/16 08:20 APTT 27.6 Seconds (25.6-37.1) 12/06/16 08:20 - Constitutional Appears: No Acute Distress - Head Exam Head Exam: ATRAUMATIC, NORMAL INSPECTION, NORMOCEPHALIC - Eye Exam Eye Exam: EOMI, Normal appearance, PERRL Pupil Exam: NORMAL ACCOMODATION, PERRL - ENT Exam ENT Exam: Mucous Membranes Moist, Normal Exam - Neck Exam Neck Exam: Full ROM, Normal Inspection. absent: Lymphadenopathy - Respiratory Exam Respiratory Exam: Clear to Ausculation Bilateral, NORMAL BREATHING PATTERN - Cardiovascular Exam Cardiovascular Exam: REGULAR RHYTHM, +S1, +S2. absent: Murmur - GI/Abdominal Exam GI & Abdominal Exam: Soft, Tenderness, Normal Bowel Sounds. absent: Distended, Firm, Guarding, Rigid Additional comments: RUQ TTP. - Extremities Exam Extremities Exam: Full ROM, Normal Capillary Refill, Normal Inspection. absent : Joint Swelling, Pedal Edema - Back Exam Back Exam: NORMAL INSPECTION - Neurological Exam Neurological Exam: Alert, Awake, CN II-XII Intact, Normal Gait, Oriented x3 - Psychiatric Exam Psychiatric exam: Normal Affect, Normal Mood - Skin Skin Exam: Dry, Intact, Normal Color, Warm Assessment and Plan - Assessment and Plan (Free Text) Assessment: 86 F with PMH of Dementia, CVA, HTN, brought from [place] for fevers and vomiting who was found to have recurrent gallstone pancreatitis -MRCP: cholelithiass without evidence of acute cholecystitis, choledolcholithiasis, or biliary dilatation. Small pleural effusions. Bilateral renal lesions (see full report). -IVF -LFTs downtrending -Pt is a poor surgical candidate and currently DNR/DNI -No plans for surgical intervention at this time -Please reconsult as needed. MAYRA Laek
--- NOTE | 2016-12-10 14:13 | CP.PCM.DIS ---
Provider - Provider Date of Admission: 12/06/16 10:57 Attending physician: Bakari Parham MD Primary care physician: Dr Spain Consults: Surgery : Dr Lake GI: Dr Diehl ID : Dr Mercer Time Spent in preparation of Discharge (in minutes): 40 Diagnosis - Discharge Diagnosis (1) Sepsis Status: Acute (2) Gallstone pancreatitis Status: Acute (3) UTI (urinary tract infection) Status: Acute (4) Dementia Status: Chronic Priority: Low (5) Hypertension Status: Chronic Priority: High Hospital Course - Lab Results Lab Results: Most Recent Lab Values WBC 4.2 K/uL (4.8-10.8) L 12/10/16 04:30 RBC 3.42 Mil/uL (3.80-5.20) L 12/10/16 04:30 Hgb 10.2 g/dL (12.0-16.0) L 12/10/16 04:30 Hct 30.4 % (34.0-47.0) L 12/10/16 04:30 MCV 88.9 fl (81.0-99.0) 12/10/16 04:30 MCH 29.7 pg (27.0-31.0) 12/10/16 04:30 MCHC 33.4 g/dL (33.0-37.0) 12/10/16 04:30 RDW 13.3 % (11.5-14.5) 12/10/16 04:30 Plt Count 119 K/uL (130-400) L 12/10/16 04:30 MPV 9.5 fl (7.2-11.7) 12/10/16 04:30 Neut % (Auto) 58.2 % (50.0-75.0) 12/10/16 04:30 Lymph % (Auto) 26.9 % (20.0-40.0) 12/10/16 04:30 [place] % (Auto) 14.3 % (0.0-10.0) H 12/10/16 04:30 Eos % (Auto) 0.3 % (0.0-4.0) 12/10/16 04:30 Baso % (Auto) 0.3 % (0.0-2.0) 12/10/16 04:30 Neut # 2.4 K/uL (1.8-7.0) 12/10/16 04:30 Lymph # 1.1 K/uL (1.0-4.3) 12/10/16 04:30 [place] # 0.6 K/uL (0.0-0.8) 12/10/16 04:30 Eos # 0.0 K/uL (0.0-0.7) 12/10/16 04:30 Baso # 0.0 K/uL (0.0-0.2) 12/10/16 04:30 Neutrophils % (Manual) 71 % (42-75) 12/06/16 08:20 Band Neutrophils % 6 % (0-2) H 12/06/16 08:20 Lymphocytes % (Manual) 7 % (20-50) L 12/06/16 08:20 Reactive Lymphs % 3 % (0-0) H 12/06/16 08:20 Monocytes % (Manual) 12 % (0-10) H 12/06/16 08:20 Metamyelocytes % 1 % (0-0) H 12/06/16 08:20 Platelet Estimate Normal (NORMAL) 12/06/16 08:20 Hypochromasia (manual) Slight 12/06/16 08:20 PT 11.7 Seconds (9.8-13.1) 12/06/16 08:20 INR 1.1 (0.9-1.2) 12/06/16 08:20 APTT 27.6 Seconds (25.6-37.1) 12/06/16 08:20 pO2 88 mm/Hg (30-55) H 12/06/16 11:44 VBG pH 7.41 (7.32-7.43) 12/06/16 11:44 VBG pCO2 44 mmHg (40-60) 12/06/16 11:44 VBG HCO3 27.0 mmol/L 12/06/16 11:44 VBG Total CO2 29.3 mmol/L (22-28) H 12/06/16 11:44 VBG O2 Sat (Calc) 99.3 % (40-65) H 12/06/16 11:44 VBG Base Excess 2.7 mmol/L (0.0-2.0) H 12/06/16 11:44 VBG Potassium 4.0 mmol/L (3.6-5.2) 12/06/16 11:44 A-a O2 Difference 7.0 mm/Hg 12/06/16 11:44 Sodium 136.0 mmol/L (132-148) 12/06/16 11:44 Chloride 106.0 mmol/L (98-107) 12/06/16 11:44 Glucose 160 mg/dL (65-105) H 12/06/16 11:44 Lactate 1.3 mmol/L (0.7-2.1) 12/06/16 11:44 FiO2 21.0 % 12/06/16 11:44 Sodium 140 mmol/l (132-148) 12/10/16 04:30 Potassium 3.5 MMOL/L (3.6-5.0) L 12/10/16 04:30 Chloride 108 mmol/L (98-107) H 12/10/16 04:30 Carbon Dioxide 26 mmol/L (22-30) 12/10/16 04:30 Anion Gap 10 (10-20) 12/10/16 04:30 BUN 9 mg/dl (7-17) 12/10/16 04:30 Creatinine 0.8 mg/dL (0.7-1.2) 12/10/16 04:30 Est GFR ( Amer) > 60 12/10/16 04:30 Est GFR (Non-Af Amer) > 60 12/10/16 04:30 POC Glucose (mg/dL) 129 mg/dL (65-110) H 12/10/16 11:27 Random Glucose 93 mg/dL (65-105) 12/10/16 04:30 Lactic Acid 0.8 MMOL/L (0.7-2.1) 12/07/16 06:03 Calcium 8.4 mg/dL (8.4-10.2) 12/10/16 04:30 Phosphorus 2.7 mg/dl (2.5-4.5) 12/06/16 08:20 Magnesium 2.3 MG/DL (1.6-2.3) 12/06/16 08:20 Total Bilirubin 0.5 mg/dl (0.2-1.3) 12/10/16 04:30 AST 50 U/L (14-36) H D 12/10/16 04:30 ALT 201 U/L (9-52) H D 12/10/16 04:30 Alkaline Phosphatase 201 U/L (38-126) H 12/10/16 04:30 Troponin I 0.0130 ng/mL (0.00-0.120) 12/06/16 08:20 NT-Pro-B Natriuret Pep 403 pg/ml (0-900) 12/06/16 08:20 Total Protein 6.0 G/DL (6.3-8.2) L 12/10/16 04:30 Albumin 3.1 g/dL (3.5-5.0) L 12/10/16 04:30 Globulin 2.8 gm/dL (2.2-3.9) 12/10/16 04:30 Albumin/Globulin Ratio 1.1 (1.0-2.1) 12/10/16 04:30 Amylase 188 U/L (30-110) H D 12/07/16 06:01 Lipase 213 U/L (23-300) 12/10/16 04:30 Procalcitonin 15.48 NG/ML (0.19-0.49) H 12/06/16 18:30 Venous Blood Potassium 4.0 mmol/L (3.6-5.2) 12/06/16 11:44 Urine Color Yellow (YELLOW) 12/06/16 08:45 Urine Clarity Cloudy (Clear) 12/06/16 08:45 Urine pH 7.0 (5.0-8.0) 12/06/16 08:45 Ur Specific [place] 1.013 (1.003-1.030) 12/06/16 08:45 Urine Protein 100 mg/dL (NEGATIVE) 12/06/16 08:45 Urine Glucose (UA) Neg mg/dL (Normal) 12/06/16 08:45 Urine Ketones Negative mg/dL (NEGATIVE) 12/06/16 08:45 Urine Blood Moderate (NEGATIVE) 12/06/16 08:45 Urine Nitrate Negative (NEGATIVE) 12/06/16 08:45 Urine Bilirubin Negative (NEGATIVE) 12/06/16 08:45 Urine Urobilinogen 0.2-1.0 mg/dL (0.2-1.0) 12/06/16 08:45 Ur Leukocyte Esterase Mod [place]/uL (Negative) 12/06/16 08:45 Urine RBC (Auto) 15 /hpf (0-3) H 12/06/16 08:45 Urine Microscopic WBC 31 /hpf (0-5) H 12/06/16 08:45 Urine Bacteria Rare (<OCC) 12/06/16 08:45 Hepatitis A IgM Ab Negative (NEGATIVE) 12/07/16 17:55 Hep Bs Antigen Negative (NEGATIVE) 12/07/16 17:55 Hep B Core IgM Ab Negative (NEGATIVE) 12/07/16 17:55 Hepatitis C Antibody Negative (NEGATIVE) 12/07/16 17:55 - Hospital Course Hospital Course: 86 year old female ,[place] resident with PMH of dementia, HTN, arthritis,history of respiratory failure, CVA,history of brain aneurysmal repair ,brought to ER for fever, abdominal pain , nausea and vomiting . As per shelter and EMS notes patient had fever 101 and was having bilious vomiting. In ER found to be febrile Tmax 104 , WBC 11.5 elevated lipase 4799 AST/ALt 1676/743 CT abdomen and pelvis showed : No acute pathology. Increasing enhancing lesions in the kidneys bilaterally suspicious for renal cell carcinoma. Cholelithiasis. Colonic diverticulosis Patient had a recent admission july 2016 for acute cholecystitis with cholelithiasis , gallstone pancreatitis UTI and was treated medically. Pt was admitted to Telemetry, started on IVF hydration, and IV antibiotics. She was kept NPO. Surgery , GI and ID consulted. Given pt's poor medical condition, multiple comorbities and age , thus a high surgical risk, GI and Surgery rec conservative medical managment. Pt's consition improved with the IV abx . Fever resolved, WBC ct normalized. LFTs trended down. Pt was started on PO diet which she tolerated. Will discharge pt back to [place] and continue IV Meropenem x 10 more days. 1. Sepsis Most likely secondary to ESBL E.Coli in urine and gallstone pancreatitis . cholecystitis ruled out by US, MRCP and CT abdomen LFT-s and lipase trending down patient clinically improving, - no fever, WBC normalized IVF Cont IV Meropenem , as discussed with Dr Mercer - x 10 more days D/c Zosyn and Gentamicin Blood cx with no growth so far ID, surgery and GI consulted Abd US showed cholelithiasis with no evidence of cholecystitis MRCP showed no CBD stone, no cholecystitis CT abdomen showed cholelithiasis but no cholecystitis 2. Acute gallstone pancreatitis LFT-s and lipase trending down MRCP showed no CBD stone Continue IVF , pain management GI and surgery eval - manage conservatively , no surgery as pt is a poor candidate Lipase now normal Tolerated PO diet 3. Transaminitis Most likely secondary to gallstone pancreatitis Hepatitis profile - normal Abd US showed cholelithiasis but no cholecystitis MRCP showed no CBD stone Advanced diet slowly trending down 4. Cholelithiasis with no cholecystitis on IV Meropenem, zosyn and genta Abd US showed no cholecystitis Surgery consulted- no plans for Surgery as pt is a poor candidate 5. UTI secondary to ESBL E.Coli ID consulted Started Meropenem D/c Genta and Zosyn 6. Dementia patient is NH resident, bed bound , mild dementia and hard on hearing niece is surrogate decision maker She is DNR/DNI niece requesting change of NH-we will d/c to [facility] 7. Hypertension controlled resume home meds Norvasc and lisinopril 8. Anemia of chronic disease on ferrous sulfate 9. Reducible abdominal wall hernia inferior to umbilicus no surgical intervention 10. DVT prophylaxis SCD and lovenox Discharge Exam - Head Exam Head Exam: ATRAUMATIC, NORMAL INSPECTION, NORMOCEPHALIC - Eye Exam Eye Exam: EOMI, Normal appearance Pupil Exam: NORMAL ACCOMODATION - ENT Exam ENT Exam: Mucous Membranes Moist, Normal External Ear Exam - Neck Exam Neck exam: Full Rom - Respiratory Exam Respiratory Exam: NORMAL BREATHING PATTERN. absent: Respiratory Distress - Cardiovascular Exam Cardiovascular Exam: REGULAR RHYTHM, +S1, +S2 - GI/Abdominal Exam GI & Abdominal Exam: Normal Bowel Sounds, Soft. absent: Tenderness - Back Exam Back exam: absent: CVA tenderness (L), CVA tenderness (R) - Neurological Exam Neurological exam: Alert Additional comments: oriented to person and place - Psychiatric Exam Psychiatric exam: Normal Affect, Normal Mood - Skin Skin Exam: Dry, Normal Color, Warm Discharge Plan - Follow Up Plan Condition: IMPROVED Disposition: TRANSF TO SNF Additional Instructions: Soft [place] , low fat diet Cont IV Meropenem x 10 more days Referrals: William Lake MD [Staff Provider] - Corby Diehl MD [Staff Provider] - Justin Spain MD [Staff Provider] -
--- NOTE | 2016-12-10 15:06 | CP.PCM.PN ---
Subjective - Date & Time of Evaluation Date of Evaluation: 12/10/16 Time of Evaluation: 15:05 - Subjective Subjective: Patient denies significant pain Eating well. Objective - Vital Signs/Intake and Output Vital Signs (last 24 hours): Temp Pulse Resp BP Pulse Ox 99 F 71 20 142/61 96 12/10/16 12:00 12/10/16 12:00 12/10/16 12:00 12/10/16 12:00 12/10/16 12:00 Intake and Output: 12/10/16 12/10/16 06:59 18:59 Intake Total 4000 Output Total 2700 Balance 1300 - Medications Medications: Current Medications Acetaminophen (Tylenol 650 Mg Supp) 650 mg [place] Q6 PRN PRN Reason: Fever >100.4 F Albuterol/Ipratropium (Duoneb 3 Mg/0.5 Mg (3 Ml) Ud) 3 ml IH Q8H PRN PRN Reason: wheezing/shortness of breath Amlodipine Besylate (Norvasc) 10 mg PO DAILY [facility] Last Admin: 12/10/16 08:48 Dose: 10 mg Artificial Tears (Artificial Tears) 2 drop OS Q8 [facility] Last Admin: 12/10/16 08:47 Dose: 2 drop Aspirin (Aspirin Chewable) 81 mg PO DAILY [facility] Last Admin: 12/10/16 08:47 Dose: 81 mg Atorvastatin Calcium (Lipitor) 10 mg PO HS [facility] Last Admin: 12/09/16 21:18 Dose: 10 mg Bisacodyl (Dulcolax) 10 mg [place] DAILY PRN PRN Reason: Constipation Calcium/Vitamin D (Oyster Shell Calcium/Vitamin D 500 Mg-200 Iu) 1 tab PO DAILY [facility] Last Admin: 12/10/16 08:49 Dose: 1 tab Docusate Sodium (Colace) 100 mg PO BID [facility] Last Admin: 12/10/16 08:47 Dose: 100 mg Ferrous Sulfate (Feosol) 325 mg PO BID [facility] Last Admin: 12/10/16 08:48 Dose: 325 mg Meropenem 1 gm/ Sodium (Chloride) 100 mls @ 100 mls/hr IVPB Q12 [facility] Last Admin: 12/10/16 08:52 Dose: 100 mls/hr Potassium Chloride/Sodium Chloride (Potassium Chl 20 Meq In Ns) 1,000 mls @ 99.01 mls/hr IV .Q10H6M [facility] Stop: 12/11/16 04:35 Last Admin: 12/10/16 10:53 Dose: 99.01 mls/hr Ketorolac Tromethamine (Toradol) 30 mg IVP Q6 PRN PRN Reason: Pain, severe (8-10) Stop: 12/11/16 20:05 Last Admin: 12/10/16 08:52 Dose: 30 mg Lactobacillus Acidophilus (Bacid Acidophilus) 1 cap PO BID [facility] Last Admin: 12/10/16 08:52 Dose: 1 cap Lactulose (Enulose) 20 gm PO DAILY PRN PRN Reason: Constipation Last Admin: 12/08/16 17:04 Dose: 20 gm Lisinopril (Zestril) 20 mg PO DAILY [facility] Last Admin: 12/10/16 08:49 Dose: 20 mg Magnesium Hydroxide (Milk Of Magnesia) 30 ml PO HS PRN PRN Reason: Constipation Morphine Sulfate (Morphine) 2 mg IVP Q6 PRN PRN Reason: Pain, severe (8-10) Last Admin: 12/08/16 13:53 Dose: 2 mg Pantoprazole Sodium (Protonix Ec Tab) 40 mg PO DAILY [facility] Last Admin: 12/10/16 08:49 Dose: 40 mg Vitamin A (Vitamin A & D Oint Ud Foilpak) 1 ea TOP BID [facility] Last Admin: 12/10/16 08:49 Dose: 1 ea - Labs Labs: 12/10/16 04:30 12/10/16 04:30 PT 11.7 Seconds (9.8-13.1) 12/06/16 08:20 INR 1.1 (0.9-1.2) 12/06/16 08:20 APTT 27.6 Seconds (25.6-37.1) 12/06/16 08:20 - Head Exam Head Exam: ATRAUMATIC - Eye Exam Eye Exam: Normal appearance - ENT Exam ENT Exam: Mucous Membranes Moist - Neck Exam Neck Exam: Normal Inspection - Respiratory Exam Respiratory Exam: Clear to Ausculation Bilateral - Cardiovascular Exam Cardiovascular Exam: REGULAR RHYTHM - GI/Abdominal Exam GI & Abdominal Exam: Soft. absent: Tenderness Assessment and Plan (1) Gallstone pancreatitis Assessment & Plan: Clinically doing well and labs are better. I agree with discharge today. Status: Acute (2) UTI (urinary tract infection) Status: Acute (3) Renal mass Status: Acute
[2016-12-10 16:15] VITALS: BP 142/76; PULSE 77; TEMP 98.8; O2SAT 97
== END 2016-12-10 18:10 | DRG 871 ==
LOC: H.ER 07:48 → H.ERHOLD 10:57 → H.TEL 12:13
PROVIDERS: ADMIT Hospitalist; ATTEND Hospitalist
DX: A41.9 Sepsis, unspecified organism (principal); K85.10 Biliary acute pancreatitis without necrosis or infection; N18.6 End stage renal disease; I12.0 Hypertensive chronic kidney disease with stage 5 chronic kidney disease or end stage renal disease; N39.0 Urinary tract infection, site not specified; B96.20 Unspecified Escherichia coli [E. coli] as the cause of diseases classified elsewhere; K80.20 Calculus of gallbladder without cholecystitis without obstruction; D63.8 Anemia in other chronic diseases classified elsewhere; F03.90 Unspecified dementia, unspecified severity, without behavioral disturbance, psychotic disturbance, mood disturbance, and anxiety; N28.89 Other specified disorders of kidney and ureter; J44.9 Chronic obstructive pulmonary disease, unspecified; M06.9 Rheumatoid arthritis, unspecified; M81.0 Age-related osteoporosis without current pathological fracture; K42.9 Umbilical hernia without obstruction or gangrene; K21.9 Gastro-esophageal reflux disease without esophagitis; K57.30 Diverticulosis of large intestine without perforation or abscess without bleeding; H91.91 Unspecified hearing loss, right ear; Z66 Do not resuscitate; Z16.12 Extended spectrum beta lactamase (ESBL) resistance; Z86.73 Personal history of transient ischemic attack (TIA), and cerebral infarction without residual deficits; Z87.01 Personal history of pneumonia (recurrent); Z74.01 Bed confinement status